=== PATIENT | female | born 1985 | race Caucasian/White ===

== ENCOUNTER 2019-01-25 12:42 | Emergency (ER) | payer MEDICAID ==
[~2019-01-25] VITALS: Ht 179.1 cm; Wt 94.8 kg
[~2019-01-25 12:42] MED LIST: IBUP-1985 PO; PALI117D IM
[2019-01-25 15:19] LABS: BASOPHILS # (AUTO) 0.1 X10'3 (0-0.2); BASOPHILS % (AUTO) 0.9 % (0-1); EOSINOPHILS # (AUTO) 0.2 X10'3 (0-0.9); EOSINOPHILS % (AUTO) 2.1 % (0-6); HEMATOCRIT 38.2 % (35.0-45.0); HEMOGLOBIN 12.5 g/dl (12.0-16.0); LYMPHOCYTES % (AUTO) 25.4 % (21-51); MEAN CORPUSCULAR HGB CONC 32.7 g/dL (33.0-36.5); MEAN CORPUSCULAR VOLUME 91.9 FL (78-98); MEAN PLATELET VOLUME 8.4 FL (7.4-10.4); MONOCYTES # (AUTO) 0.6 X10'3 (0-0.9); MONOCYTES % (AUTO) 7.1 % (2-12); NEUTROPHILS # (AUTO) 5.1 X10'3 (1.8-7.7); NEUTROPHILS % (AUTO) 64.5 % (42-75); PLATELET COUNT 268 X10'3 (140-440); RED BLOOD COUNT 4.16 X10'6 (4.20-5.60); RED CELL DISTRIBUTION WIDTH 16.2 % (11.5-14.5); WHITE BLOOD COUNT 7.8 X10'3 (4.5-11.0)
[2019-01-25 15:29] LABS: ALANINE AMINOTRANSFERASE 19 U/L (12-78); ALBUMIN 3.4 G/DL (3.4-5.0); ALBUMIN/GLOBULIN RATIO 0.9 (1.1-1.5); ALKALINE PHOSPHATASE 92 IU/L (46-116); ANION GAP 5 (8-16); ASPARTATE AMINO TRANSFERASE 16 U/L (10-37); BILIRUBIN,TOTAL 0.4 MG/DL (0.1-1.0); BLOOD UREA NITROGEN 12 MG/DL (7-18); CALCIUM 8.9 MG/DL (8.5-10.1); CHLORIDE 105 MMOL/L (99-107); CREATININE 0.92 MG/DL (0.40-0.90); GLUCOSE 79 MG/DL (70-104); POTASSIUM 3.8 MMOL/L (3.5-5.1); SODIUM 139 MMOL/L (135-145); TOTAL CARBON DIOXIDE 28.9 MMOL/L (24-32); eGFR 71 ML/MIN
--- NOTE | 2019-01-25 15:30 | NUR ---
DR COOLEY AT BEDSIDE EVALUATING PT
[2019-01-25 15:33] LABS: URINE HCG NEGATIVE (NEG)
[2019-01-25 15:35] LABS: CLARITY,URINE SLIGHTLY CLOUDY (Clear); COLOR,URINE YELLOW (Yellow); GLUCOSE, URINE NEGATIVE (Neg); KETONES,URINE NEGATIVE (Neg); LEUKOCYTE ESTERASE ,URINE NEGATIVE (Neg); NITRITES, URINE NEGATIVE (Neg); OCCULT BLOOD,URINE LARGE (Neg); PROTEIN,URINE TRACE mg/dl (Neg); UROBILINOGEN,URINE 0.2 E.U/dL (0.2-1.0)
[2019-01-25 15:38] LABS: ETHANOL < 0.010 GM/DL (0.0-0.010)
[2019-01-25 15:40] LABS: UA COLLECTION TYPE CLN CATCH MIDSTREAM
[2019-01-25 15:43] LABS: BACTERIA,URINE 2+ /HPF (Neg); CAL OXALATE CRYSTALS 1+ /HPF (NEGATIVE); MUCUS STRANDS MODERATE /LPF (Neg); SQUAMOUS EPITHELIAL CELL,UR MODERATE /LPF (FEW); WBC,URINE 0-4 /HPF (0-4)
[2019-01-25 15:44] LABS: URINE AMPHETAMINE SCREEN POSITIVE (Neg); URINE BARBITUATE SCREEN NEGATIVE (Neg); URINE BENZODIAZEPINES SCREEN NEGATIVE (Neg); URINE CANNABINOID SCREEN NEGATIVE (Neg); URINE COCAINE SCREEN NEGATIVE (Neg); URINE METHADONE SCREEN NEGATIVE (Neg); URINE OPIATE SCREEN NEGATIVE (Neg); URINE PHENCYCLIDINE SCREEN NEGATIVE (Neg)
--- NOTE | 2019-01-25 17:30 | NUR ---
PT SLEEPING IN NO NOTED DISTRESS
--- NOTE | 2019-01-25 17:56 | NUR ---
SAFETY DINNER TRAY DELIVERED TO BEDSIDE.
--- NOTE | 2019-01-25 19:00 | NUR ---
Patient resting comfortably in bed.
--- NOTE | 2019-01-25 19:12 | NUR ---
Patient chart faxed to [facility] at 19:11
--- NOTE | 2019-01-25 20:00 | NUR ---
Patient went to bathroom and received warm blanket.
--- NOTE | 2019-01-25 21:30 | NUR ---
Agree with covering nurses assessment that was completed while this nurse was on break.
--- NOTE | 2019-01-25 21:51 | NUR ---
Vikas from [facility] assessed Pt and wrote [id number] order. County to assess tomorrow for possible placement.
--- NOTE | 2019-01-25 22:00 | NUR ---
Patient sleeping on her right side . Bed low.
--- NOTE | 2019-01-25 23:47 | NUR ---
Patient on her back sleeping with eyes closed and respirations steady.
--- NOTE | 2019-01-26 01:30 | NUR ---
Patient resting comfortably on her left side. Respiration even, eyes closed.
--- NOTE | 2019-01-26 03:30 | NUR ---
Continues sleeping on her left side.
--- NOTE | 2019-01-26 03:30 | NUR ---
Adriel escoto in [facility] - 01/26/19 at 0355 by NAVNEET Patient sleeping now on her left side.
--- NOTE | 2019-01-26 05:08 | NUR ---
Note tigist in EDM - 01/26/19 at 0618 by NAVNEET Patient just awoke and patient agreed for temperature to be taken = 98.4 oral. Patient then covered up the top part of his head and closed his eyes. Currently on his left side.
--- NOTE | 2019-01-26 05:30 | NUR ---
Patient has slept soundly all night long.
[2019-01-26] MEDS ORDERED: hydrOXYzine 25 MG tablet PO PRN (14:45)
--- NOTE | 2019-01-26 16:43 | NUR ---
pt is awake and asking when she can leave
--- NOTE | 2019-01-26 17:00 | NUR ---
pt is resting in bed
--- NOTE | 2019-01-26 18:09 | NUR ---
pt is pacing along side of bed. pt denies anxiety but states she just wants to move around
--- NOTE | 2019-01-26 18:40 | NUR ---
This patient is awake and well oriented. Patient complains of mild depression. Her affect is flat, thought process is linear. Patient denies S/I or H/I. Patient presents as friendly. She ate her dinner. She is reported to be medication compliant. The patient is advised by this information writer that she is in a safe place. Patients bed is in view from the nursing station. Q15 minute rounding is being done for patient safety.
--- NOTE | 2019-01-26 20:50 | NUR ---
The plan is to transfer patient to [facility]. We are still awaiting [facility] transport. Patient is sleeping quietly at this time. In view from the nursing station. Q15 minute rounding being done for patient safety.
--- NOTE | 2019-01-26 21:02 | NUR ---
[facility] Transport is here. Patient is being escorted out, transport to [facility].
[2019-01-26 21:03] VITALS: BP 120/72
== END 2019-01-26 21:07 ==
LOC: ER 12:42
DX: F31.60 Bipolar disorder, current episode mixed, unspecified (principal); F41.9 Anxiety disorder, unspecified; F20.9 Schizophrenia, unspecified; F12.90 Cannabis use, unspecified, uncomplicated; F15.90 Other stimulant use, unspecified, uncomplicated; F11.90 Opioid use, unspecified, uncomplicated; Z79.899 Other long term (current) drug therapy; Z98.890 Other specified postprocedural states; Z59.0 Homelessness; Z56.0 Unemployment, unspecified; Z60.2 Problems related to living alone
CPT/HCPCS: 36415; 80053; 80305; 80320; 81001; 81025; 84443; 85025; 99285; Q0177

== ENCOUNTER 2019-12-15 14:32 | Inpatient (IN) | payer MEDICAID ==
[~2019-12-15] VITALS: Ht 177.8 cm; Wt 116.3 kg
[2019-12-16] MEDS ORDERED: loperamide 2mg capsule PO PRN (15:00)
[2019-12-16] MEDS ORDERED: mag hydrox/Alum hydrox/simeth 30ml oral suspension PO PRN (15:00)
[2019-12-16] MEDS ORDERED: LORazepam 1 MG tablet PO PRN (15:00)
[2019-12-16] MEDS ORDERED: NICOTINE POLACRILEX 2 MG LOZENGE BC PRN (15:00)
[2019-12-16] MEDS ORDERED: traZODone 50mg tablet PO PRN (15:00)
[2019-12-16] MEDS ORDERED: haloperidol 5mg tablet PO PRN (15:00)
[2019-12-16] MEDS ORDERED: acetaminophen 325mg tablet PO PRN ×2 (15:00)
[2019-12-16] MEDS ORDERED: diphenhydrAMINE 25mg capsule PO PRN (15:00)
[2019-12-16] MEDS ORDERED: magnesium hydroxide 30ml (MOM) UD suspension PO PRN (15:00)
[2019-12-16] MEDS ORDERED: quetiapine 100mg tablet PO PRN (15:00)
[2019-12-16] MEDS: LORazepam 1 MG tablet PO PRN ×2 (15:25→22:34)
[2019-12-16 15:31] VITALS: BP 127/83
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
[2019-12-16] MEDS ORDERED: LEVO25TA2 PO (19:21)
[2019-12-16] MEDS ORDERED: DOCU-148 PO (19:24)
[2019-12-16] MEDS ORDERED: LIT300C PO (19:26)
[2019-12-16] MEDS ORDERED: GLYC1TAB23 PO (19:27)
[2019-12-16] MEDS ORDERED: CHLO100T24 PO (19:29)
[2019-12-16] MEDS ORDERED: CHLO50TA24 PO (19:37)
[2019-12-16] MEDS ORDERED: HYDR50CA PO (19:40)
[2019-12-16] MEDS ORDERED: LORA-269 PO (19:42)
[2019-12-16 20:00] VITALS: BP 124/72
--- NOTE | 2019-12-16 22:40 | NUR ---
Patient came to the nurses station window, she exhibits paranoia about the sitter outside her door that is in that location to observe her roommate. This business writer explained to this patient that the sitter is not there because of her. The patient looks to be responding to external stimuli, she states she can't sleep and exhibits anxiety. PO Ativan 2mg given along with Benadryl 50 mg. Patient also requested a nicotine lozenge. Patient complied with medications. She was also given a glass of water which she consumed. String cheese was consumed as a snack. Patient returned to bed.
--- NOTE | 2019-12-16 23:06 | NUR ---
MOM given prn for patient complaint of indigestion.
[2019-12-17] MEDS ORDERED: quetiapine 100mg tablet PO PRN ×2 (00:15→00:40)
[2019-12-17] MEDS ORDERED: acetaminophen 325mg tablet PO PRN (00:40)
[2019-12-17] MEDS ORDERED: loperamide 2mg capsule PO PRN (00:40)
[2019-12-17] MEDS ORDERED: LORazepam 1 MG tablet PO PRN (00:40)
[2019-12-17] MEDS ORDERED: traZODone 50mg tablet PO PRN (00:40)
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
[2019-12-17 08:00] VITALS: BP 107/83
[2019-12-17] MEDS ORDERED: nicotine 21mg patch - 24 hr TD SCH (08:00)
[2019-12-17] MEDS: nicotine 7mg patch - 24hr TD SCH (08:06)
[2019-12-17] MEDS: LORazepam 1 MG tablet PO PRN ×2 (08:06→17:12)
[2019-12-17] MEDS: glycopyrrolate 1mg tablet PO SCH ×2 (08:06→22:02)
[2019-12-17] MEDS: perphenazine 8mg tablets PO SCH ×3 (08:06→22:01)
[2019-12-17] MEDS: docusate sod 100mg capsule PO SCH ×2 (08:07→22:02)
[2019-12-17] MEDS: levoTHYROXINE 25mcg tablet PO SCH (08:07)
[2019-12-17] MEDS: lithium carbonate 300mg SR tablet (LithoBID) PO SCH ×2 (08:11→22:03)
[2019-12-17] MEDS ORDERED: OLANZapine 5mg rapidly disint. tablet PO ONE (10:05)
[2019-12-17] MEDS: magnesium hydroxide 30ml (MOM) UD suspension PO PRN (14:28)
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
[2019-12-17 15:22] LABS: BASOPHILS # (AUTO) 0.1 X10'3 (0-0.2); BASOPHILS % (AUTO) 1.2 % (0-1); EOSINOPHILS # (AUTO) 0.1 X10'3 (0-0.9); EOSINOPHILS % (AUTO) 2.3 % (0-6); HEMATOCRIT 29.6 % (35.0-45.0); HEMOGLOBIN 9.9 g/dl (12.0-16.0); LYMPHOCYTES # (AUTO) 2.4 X10'3 (1.1-4.8); LYMPHOCYTES % (AUTO) 40.3 % (21-51); MEAN CORPUSCULAR HEMOGLOBIN 29.5 PG (27.0-31.0); MEAN CORPUSCULAR HGB CONC 33.4 g/dL (33.0-36.5); MEAN CORPUSCULAR VOLUME 88.3 FL (78-98); MEAN PLATELET VOLUME 8.4 FL (7.4-10.4); MONOCYTES # (AUTO) 0.6 X10'3 (0-0.9); MONOCYTES % (AUTO) 9.1 % (2-12); NEUTROPHILS # (AUTO) 2.8 X10'3 (1.8-7.7); NEUTROPHILS % (AUTO) 47.1 % (42-75); PLATELET COUNT 281 X10'3 (140-440); RED BLOOD COUNT 3.35 X10'6 (4.20-5.60); RED CELL DISTRIBUTION WIDTH 16.3 % (11.5-14.5)
[2019-12-17 15:38] LABS: ALANINE AMINOTRANSFERASE 16 U/L (12-78); ALBUMIN 3.1 G/DL (3.4-5.0); ALBUMIN/GLOBULIN RATIO 0.9 (1.1-1.5); ALKALINE PHOSPHATASE 58 IU/L (46-116); ANION GAP 5 (8-16); ASPARTATE AMINO TRANSFERASE 12 U/L (10-37); BILIRUBIN,TOTAL 0.1 MG/DL (0.1-1.0); BLOOD UREA NITROGEN 11 MG/DL (7-18); BUN/CREATININE RATIO 9.3 (6.6-38.0); CALCIUM 8.7 MG/DL (8.5-10.1); CHLORIDE 107 MMOL/L (99-107); CREATININE 1.18 MG/DL (0.40-0.90); GLUCOSE 116 MG/DL (70-104); POTASSIUM 3.7 MMOL/L (3.5-5.1); SODIUM 140 MMOL/L (135-145); TOTAL CARBON DIOXIDE 28.2 MMOL/L (24-32); TOTAL PROTEIN 6.7 G/DL (6.4-8.2); eGFR 53 ML/MIN
[2019-12-17 17:12] LABS: CLARITY,URINE SLIGHTLY CLOUDY (Clear); COLOR,URINE YELLOW (Yellow); GLUCOSE, URINE NEGATIVE (Neg); KETONES,URINE NEGATIVE (Neg); LEUKOCYTE ESTERASE ,URINE NEGATIVE (Neg); NITRITES, URINE NEGATIVE (Neg); OCCULT BLOOD,URINE LARGE (Neg); PH,URINE 7.5 (4.8-8.0); PROTEIN,URINE TRACE mg/dl (Neg); UA COLLECTION TYPE CLN CATCH MIDSTREAM; UROBILINOGEN,URINE 0.2 E.U/dL (0.2-1.0)
[2019-12-17 17:17] LABS: BACTERIA,URINE FEW /HPF (Neg); MUCUS STRANDS NONE SEEN /LPF (Neg); RBC,URINE TNTC /HPF (0-2); SQUAMOUS EPITHELIAL CELL,UR FEW /LPF (FEW); WBC,URINE 0-4 /HPF (0-4)
[2019-12-17 17:26] LABS: URINE AMPHETAMINE SCREEN NEGATIVE (Neg); URINE BARBITUATE SCREEN NEGATIVE (Neg); URINE BENZODIAZEPINES SCREEN NEGATIVE (Neg); URINE CANNABINOID SCREEN NEGATIVE (Neg); URINE COCAINE SCREEN NEGATIVE (Neg); URINE METHADONE SCREEN NEGATIVE (Neg); URINE OPIATE SCREEN NEGATIVE (Neg); URINE PHENCYCLIDINE SCREEN NEGATIVE (Neg)
[2019-12-17 19:00] VITALS: BP 116/82
[2019-12-17] MEDS ORDERED: CLOMIPRAMINE PO SCH (21:00)
[2019-12-17] MEDS: NICOTINE POLACRILEX 2 MG LOZENGE BC PRN (22:01)
[2019-12-17] MEDS: traZODone 50mg tablet PO PRN (22:03)
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
[2019-12-18] MEDS: levoTHYROXINE 25mcg tablet PO SCH (07:40)
[2019-12-18] MEDS: docusate sod 100mg capsule PO SCH ×2 (07:40→20:45)
[2019-12-18] MEDS: nicotine 7mg patch - 24hr TD SCH (07:40)
[2019-12-18] MEDS: lithium carbonate 300mg SR tablet (LithoBID) PO SCH ×2 (07:40→20:46)
[2019-12-18] MEDS: perphenazine 8mg tablets PO SCH ×3 (07:41→20:45)
[2019-12-18 08:00] VITALS: BP 119/83
[2019-12-18 08:15] LABS: ETHANOL < 0.010 GM/DL (0.0-0.010); LDL CHOLESTEROL 106 MG/DL (50-100)
[2019-12-18 08:34] LABS: CREATININE 1.08 MG/DL (0.40-0.90); HDL CHOLESTEROL 37 MG/DL (35-60); PHENYTOIN (DILANTIN) 0.7 UG/ML (10.0-20.0); TRIGLYCERIDES 194 MG/DL (20-135); eGFR 59 ML/MIN
[2019-12-18 08:37] LABS: CHOL/HDL RATIO 4.8 (0.00-4.99); CHOLESTEROL 177 MG/DL (0-200)
[2019-12-18] MEDS: glycopyrrolate 1mg tablet PO SCH ×2 (08:37→20:45)
[2019-12-18 09:15] LABS: HEMOGLOBIN A1C 5.7 % (4.5-6.2)
[2019-12-18] MEDS: acetaminophen 325mg tablet PO PRN ×3 (10:40→15:44)
[2019-12-18 15:32] LABS: URINE HCG NEGATIVE (NEG)
[2019-12-18 16:08] LABS: CLARITY,URINE SLIGHTLY CLOUDY (Clear); GLUCOSE, URINE NEGATIVE (Neg); KETONES,URINE NEGATIVE (Neg); LEUKOCYTE ESTERASE ,URINE SMALL (Neg); NITRITES, URINE NEGATIVE (Neg); OCCULT BLOOD,URINE LARGE (Neg); PROTEIN,URINE TRACE mg/dl (Neg); UROBILINOGEN,URINE 0.2 E.U/dL (0.2-1.0)
[2019-12-18 16:10] LABS: COLOR,URINE PINK (Yellow); UA COLLECTION TYPE NON-SPECIFIED
[2019-12-18 16:16] LABS: BACTERIA,URINE NONE SEEN /HPF (Neg); MUCUS STRANDS NONE SEEN /LPF (Neg); RBC,URINE 50-100 /HPF (0-2); SQUAMOUS EPITHELIAL CELL,UR MODERATE /LPF (FEW); WBC,URINE 0-4 /HPF (0-4)
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
[2019-12-18 20:00] VITALS: BP 123/81
[2019-12-18] MEDS: traZODone 50mg tablet PO PRN ×2 (20:46→22:05)
[2019-12-18] MEDS: CLOMIPRAMINE 50 MG PO SCH (20:46)
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
[2019-12-19 07:46] VITALS: BP 96/76
[2019-12-19] MEDS: nicotine 7mg patch - 24hr TD SCH (07:57)
[2019-12-19] MEDS: lithium carbonate 300mg SR tablet (LithoBID) PO SCH ×2 (07:58→21:34)
[2019-12-19] MEDS: glycopyrrolate 1mg tablet PO SCH ×2 (07:58→21:34)
[2019-12-19] MEDS: perphenazine 8mg tablets PO SCH ×3 (07:58→21:34)
[2019-12-19] MEDS: levoTHYROXINE 25mcg tablet PO SCH (07:58)
[2019-12-19] MEDS: docusate sod 100mg capsule PO SCH ×2 (07:58→21:34)
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
[2019-12-19 19:00] VITALS: BP 133/80
[2019-12-19] MEDS: CLOMIPRAMINE 50 MG PO SCH (21:33)
[2019-12-19] MEDS: traZODone 50mg tablet PO PRN (21:34)
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
[2019-12-20] MEDS: nicotine 7mg patch - 24hr TD SCH (08:00)
[2019-12-20] MEDS: docusate sod 100mg capsule PO SCH ×2 (08:08→20:15)
[2019-12-20] MEDS: levoTHYROXINE 25mcg tablet PO SCH (08:09)
[2019-12-20] MEDS: perphenazine 8mg tablets PO SCH ×3 (08:09→20:15)
[2019-12-20] MEDS: lithium carbonate 300mg SR tablet (LithoBID) PO SCH ×2 (08:09→20:15)
[2019-12-20] MEDS: glycopyrrolate 1mg tablet PO SCH ×2 (08:12→20:15)
[2019-12-20 08:42] VITALS: BP 119/92
[2019-12-20 20:00] VITALS: BP 119/84
[2019-12-20] MEDS: CLOMIPRAMINE 50 MG PO SCH (20:15)
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
[2019-12-21] MEDS: lithium carbonate 300mg SR tablet (LithoBID) PO SCH ×2 (08:03→20:15)
[2019-12-21] MEDS: levoTHYROXINE 25mcg tablet PO SCH (08:03)
[2019-12-21] MEDS: glycopyrrolate 1mg tablet PO SCH ×2 (08:03→20:15)
[2019-12-21] MEDS: perphenazine 8mg tablets PO SCH ×3 (08:03→20:16)
[2019-12-21] MEDS: nicotine 7mg patch - 24hr TD SCH (08:03)
[2019-12-21] MEDS: docusate sod 100mg capsule PO SCH ×2 (08:03→20:15)
[2019-12-21 08:28] VITALS: BP 124/78
[2019-12-21] MEDS ORDERED: medroxyPROGESTERone acetate 150mg/ml inj IM ONE (10:00)
--- NOTE | 2019-12-21 10:00 | NUR ---
Group Therapy: Process Group This Clinicians goals for this process group were as follows: (1) Ask scaling questions about patients current anxiety, depression, and irritability symptoms as a check-in. (2) Share psychoeducation about emotional/situational triggers as they relate to the onset of unwanted mental health symptoms. (3) Identify examples of emotional/situational triggers within the group milieu. (4) Share psychoeducation on interventions as tools to reduce emotional escalation. (5) Identify several interventions within the group milieu that patients may utilizing in reducing emotional escalation caused by emotional/situational triggers. (6) Engage patients in discussion of the topics shared within the group milieu. Patient identified experiencing the following levels of anxiety, depression, and anger/irritability while present in the group milieu. Anxiety: 08/23 Depression: 07/23 Anger/irritability: 02/20 Patient presented as cooperative within the group milieu. Patient wore a white non-descript t-shirt, with blue shorts within the group milieu. Patient presented as unobtrusive during session; however, she only stayed long enough to provide answers to the scaling questions on her subjective levels of anxiety, depression and anger/irritability before leaving the group milieu approximately 5 minutes after the start-time of group. She did not return, nor did she participate in the discussion of emotional/situational triggers and interventions that one could employ to reduce unwanted emotional escalation and dysregulation. Luis Antonio MA, MITUL Addendum: 12/21/19 at 1154 by Luis Antonio SS Amended: Links added.
--- NOTE | 2019-12-21 10:30 | NUR ---
Pt placed on unlisted/regular/carb controlled diets; unlisted diet has no comments and pt no hx DM. Previously constipated w/ 100% PO and LBM 6/8 per RN today. MARIAN d/w RN regarding change to heart healthy diet if MD agreeable given latest TG 194. Addendum: 12/21/19 at [address] Amended: Links added.
--- NOTE | 2019-12-21 15:52 | NUR ---
NURSING PROGRESS NOTE: Legal hold: LPS Conserved Client on involuntary status for GD Report received from BENI Hernandez with use of SBAR Why are they here: The patient was AWOL at previous facility and began to decompensate. She is LPS conserved. She was cooperative with admission however quite paranoid. Stated on her trip up to [place] someone at a rest stop told her she was going to stay at this facility for 17 years, and kept asking staff if that was true? Responded well to redirection and reassurance. Assessment What has happened this shift: Patient had a pelvic ultrasound and transvaginal ultrasound. Pt. tolerated procedure well. Patient eats meals and takes medications without incident. Pt. is disorganized in conversation. Patient states that this unit is in her eye. Patient each day reports that she is discharging and that she has been told this by staff. Educated patient that her conservator is the one who will find placement. She states that she talked to Alejandra and was not given any hope for placement. Pt. states I want Alejandra , I dont want to do any violence, but I want her . Depoprovera [address] Sanz here to see patient. After Dr. Sanz left, patient stated that the doctor said that she is going to kill me, and keep me here for life. Nurses that were present informed her that this is not something that Dr. Sanz would say to her. Patient denies A/H. SI/HI: Denies. A/VH: Denies. Sleep: 5.25 hrs NOC, no naps. ADL's: Independent. Group attendance: Attempted to join group but could not sit still. Were meds taken: Yes Any med S/E: None. Mental Status Exam Appearance: Freshly showered in personal attire. Eye contact: Good Behavior: Cooperative, confused. Speech: Soft, normal rate, rhythm, and tone Mood: Dysphoria Affect: Restricted Thought process: Delusional, thought blocking, disorganized. Thought Content: Discharging. Cognition: Alert Insight: Impaired. Judgment: Poor Interventions PRN's used: Therapeutic interventions: 1;1 assessment, active listening, ensured contract for safety, encouraged pt to interact appropriately with others, maintained a safe and supportive environment, medication administration/education/monitoring, Q 15 minute safety checks. Restraints/seclusion/emergency medication: N/A Justification of Continued Inpatient Treatment: Provide care for paranoid and delusional state and provide a safe and supportive environment while awaiting placement.
[2019-12-21] MEDS: diphenhydrAMINE 25mg capsule PO PRN (16:08)
[2019-12-21] MEDS ORDERED: perphenazine 8mg tablets PO PRN (16:20)
[2019-12-21] MEDS ORDERED: LORazepam 1 MG tablet PO PRN (16:20)
[2019-12-21] MEDS: NICOTINE POLACRILEX 2 MG LOZENGE BC PRN (19:35)
[2019-12-21] MEDS ORDERED: LORazepam 0.5 MG tablet PO PRN (19:45)
[2019-12-21] MEDS: LORazepam 0.5 MG tablet PO PRN (19:51)
[2019-12-21 20:00] VITALS: BP 124/88
[2019-12-21] MEDS: CLOMIPRAMINE 50 MG PO SCH (20:17)
[2019-12-21] MEDS: traZODone 50mg tablet PO PRN (20:24)
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
[2019-12-22] MEDS: acetaminophen 325mg tablet PO PRN ×2 (04:38→15:52)
[2019-12-22] MEDS: docusate sod 100mg capsule PO SCH ×2 (08:19→19:39)
[2019-12-22] MEDS: lithium carbonate 300mg SR tablet (LithoBID) PO SCH ×3 (08:19→19:39)
[2019-12-22] MEDS: levoTHYROXINE 25mcg tablet PO SCH (08:19)
[2019-12-22] MEDS: glycopyrrolate 1mg tablet PO SCH ×2 (08:19→19:40)
[2019-12-22] MEDS: perphenazine 8mg tablets PO SCH ×3 (08:20→19:40)
[2019-12-22] MEDS: nicotine 7mg patch - 24hr TD SCH (08:23)
[2019-12-22 08:25] VITALS: BP 113/63
[2019-12-22 09:12] LABS: ESTRADIOL 17.7 pg/mL (.); FSH, SERUM 0.3 mIU/mL (.); LUTEINIZING HORMONE <0.3 mIU/mL (.); PROGESTERONE <0.1 ng/mL (.)
--- NOTE | 2019-12-22 13:02 | NUR ---
Initial: Pt admit for gravely disabled. Pt remains on a regular, CHO controlled, unlisted diet documented with 75-100% PO intake. D/w RN recommendation for diet change to heart healthy given elevated TG and LDL with no documented PMH of diabetes. LBM 6 documented as moderate. Pt receiving routine and PRN bowel care. No edema or wounds. No nutrition diagnosis at this time. Will continue to follow. Recommendations: 1) Diet change to heart healthy given elevated TG and LDL with no hx DM 2) Routine bowel care 3) Scaled wts per rx Addendum: 12/22/19 at [address] Amended: Links added.
[2019-12-22] MEDS: LORazepam 0.5 MG tablet PO PRN (14:06)
[2019-12-22] MEDS: diphenhydrAMINE 25mg capsule PO PRN (14:06)
--- NOTE | 2019-12-22 14:20 | NUR ---
Nursing Progress Note: Legal hold: LPS Conserved Client on involuntary status for GD Report received from Mary BAZAN with use of SBAR Why are they here: The patient was AWOL at previous facility and began to decompensate. She is LPS conserved. She was cooperative with admission however quite paranoid. Stated on her trip up to [place] someone at a rest stop told her she was going to stay at this facility for 17 years, and kept asking staff if that was true? Responded well to redirection and reassurance. Assessment What has happened this shift: Pt denied depression, SI/HI/AH/VH. She was up for breakfast but returned to bed to nap afterwards. Dr Sanz came by around 1215 to assess pt's bleeding. 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 Dr Sanz stated that the bleeding should completely stop by Friday. At 1406 pt requested prn Ativan and Benadryl and was given Ativan 1 mg and Benadryl 50 mg. Pt stated that she had increased anxiety. Asked pt what was causing her increased anxiety. Pt stated that her conservator lied to her and told her that she was only coming here for her thyroid but that now she has been told that she will be staying here and need a higher level of care. Pt stated that she already had a higher level of care so doesn't understand where they can send her from here. Pt expressed frustration but stated she asked for the prns because, "I don't want to take it out on you guys." Pt stated that she was going to call her conservator right now and tell her that she needs housing. Pt's diet was changed today from carb controlled to heart healthy per field identification specialist recommendations. SI/HI: Pt denies. A/VH: Pt denies. Sleep: Pt slept 8.75 hours last night per noc shift report, napped after breakfast. ADL's: Independent, showered today. Group attendance: No Were meds taken: Yes Any med S/E: None noted or reported. Mental Status Exam Appearance: Tall, overweight woman dressed in street clothes with hair pulled back in a side ponytail. Eye contact: Good Behavior: Cooperative, mostly isolative to self. Speech: Clear, audible, normal rate & rhythm. Mood: Anxious Affect: Blunted Thought process: Perseverative. Thought Content: Perseverates on anger towards conservator for lying to her to get her to come here, fixates on where she will be placed. Cognition: A/O X 4 Insight: Poor Judgment: Fair Interventions PRN's used: Ativan 1 mg, Benadryl 50 mg Therapeutic interventions: 1:1 assessment, active listening, therapeutic conversation, medication administration/education/monitoring, encouragement to attend groups, behavior monitoring and intervention as needed, encouragement and positive reinforcement, Q 15 minute safety checks. Restraints/seclusion/emergency medication: N/A Justification of Continued Inpatient Treatment: Pt decompensated at [facility] and so was sent here by conservator for stabilization, pt is unable to return to previous facility, pt needs medication management and monitoring in a safe and therapeutic environment until reaches her baseline. Pt is LPS conserved and will need placement.
[2019-12-22 19:00] VITALS: BP 140/85
[2019-12-22] MEDS: NICOTINE POLACRILEX 2 MG LOZENGE BC PRN (19:32)
[2019-12-22] MEDS: traZODone 50mg tablet PO PRN (19:39)
[2019-12-22] MEDS: CLOMIPRAMINE 50 MG PO SCH (19:41)
[2019-12-22 20:48] VITALS: BP 140/85
--- NOTE | 2019-12-23 03:57 | NUR ---
RN PROGRESS NOTE: LEGAL HOLD: LPS conserved. ADMISSION: Client began to decompensate and required medication adjustment. THIS SHIFT: Client has a depressed mood and flat affect. She was out on the unit and requested her meds a little early. Client requested PRN nicotine [place] and stated, "I'd like to go outside and smoke." Client took a shower and needed encouragement to use soap and shampoo. Client is cooperative. She reports mild pelvic pain, which has been treated effectively with Tylenol. Awake several times during the night. Denies medication side effects. Thoughts are linear. DISCHARGE: Client is unable to formulate a plan for penitentiary and food. Waiting for placement.
[2019-12-23] MEDS: perphenazine 8mg tablets PO SCH ×3 (07:53→20:54)
[2019-12-23] MEDS: lithium carbonate 300mg SR tablet (LithoBID) PO SCH ×3 (07:53→20:53)
[2019-12-23] MEDS: levoTHYROXINE 25mcg tablet PO SCH (07:53)
[2019-12-23] MEDS: docusate sod 100mg capsule PO SCH ×2 (07:53→20:54)
[2019-12-23] MEDS: glycopyrrolate 1mg tablet PO SCH ×2 (07:53→20:53)
[2019-12-23] MEDS: nicotine 7mg patch - 24hr TD SCH (07:58)
[2019-12-23 08:00] VITALS: BP 134/76
[2019-12-23] MEDS: diphenhydrAMINE 25mg capsule PO PRN ×2 (08:33→14:41)
--- NOTE | 2019-12-23 11:01 | NUR ---
PLACEMENT Packet is currently at [place] and she is #13 on wait-list at [facility]. MITUL Martin
[2019-12-23] MEDS: LORazepam 1 MG tablet PO PRN (14:41)
--- NOTE | 2019-12-23 14:50 | NUR ---
Nursing Progress Note: Legal hold: LPS Conserved Client on involuntary status for GD Report received from Mary RN with use of SBAR Why are they here: The patient was AWOL at previous facility and began to decompensate. She is LPS conserved. She was cooperative with admission however quite paranoid. Stated on her trip up to [place] someone at a rest stop told her she was going to stay at this facility for 17 years, and kept asking staff if that was true? Responded well to redirection and reassurance. Assessment What has happened this shift: Pt denied depression, SI/HI/AH/VH. Pt stated, "I'm a little worried, my conservator has dementia, she forgets what she says to me...she argues with me. My conservator is supposed to be Renato Pruett but he's been gone for 6 months. I'm going to call her right now and see if she's sent out any packets, if she hasn't, I'm going to be mad...I've been here a week." Pt was given prn Ativan 2 mg and Benadryl 50 mg at 0833 per her request with good effect. Pt reported that her vaginal bleeding had stopped. Later in the shift, pt changed into some larger scrubs that fit her better and applied make-up. Pt peeled off a small piece from the zig-zagged section of her patient identification wristband and applied it to her right cheek as an accessory, it had the appearance of a small lightening bolt. Pt began asking nurses for a squirt of hand environmental health nurse excessively. At one point while this RN was at lunch she entered the charting room without asking and grabbed a bottle of hand environmental health nurse off a ELIZABETH and made as though to walk off with it. One RN suspected that she intended to drink it. Spoke with patient after returning from lunch. Pt denied any intent to drink the hand environmental health nurse. She stated that she had been blowing her nose (pt MRSA + nares) and changing her pad so just thought that the hand environmental health nurse would be a good idea. Pt educated that hand washing is actually a more effective method for prevention of infection, ensured that patient had soap in the dispenser in her room (she did.) Asked pt if she had started bleeding again, she reported, "a little bit." Pt continued to pace back and forth in front of the nurses' charting room and look in the window. Pt seemed fixated on hand environmental health nurse for a good while and continued asking for some a couple more times. She was gently redirected away from the hand environmental health nurse and encouraged to wash her hands. Pt frequently requested her water pitcher to be refilled. Pt requested Ativan and Benadryl again after lunch and was administered Ativan 2 mg and Benadryl 50 mg at 1441. SI/HI: Pt denies. A/VH: Pt denies. Sleep: Pt slept 7.75 hours last night per noc shift report, napped for short intervals throughout the day. ADL's: Independent Group attendance: No Were meds taken: Yes Any med S/E: None noted or reported. Mental Status Exam Appearance: Tall, overweight woman dressed in clean, green hospital scrubs, applied make-up today and wore her hair down for a little while. Eye contact: Good Behavior: Cooperative, restless, paces, did not wish to read, watch TV, or listen to radio headphones, makes frequent requests. Speech: Clear, audible, normal rate & rhythm. Mood: Anxious Affect: Anxious Thought process: Perseverative Thought Content: Perseverated on using hand environmental health nurse today Cognition: A/O X 4 Insight: Poor Judgment: Fair Interventions PRN's used: Ativan 1 mg, Benadryl 50 mg X 2 @ 0833 & 1441 Therapeutic interventions: 1:1 assessment, active listening, therapeutic conversation, medication administration/education/monitoring, encouragement to attend groups, behavior monitoring and intervention as needed, limit setting, redirection, positive reinforcement, Q 15 minute safety checks. Restraints/seclusion/emergency medication: N/A Justification of Continued Inpatient Treatment: Pt decompensated at [facility] and so was sent here by conservator for stabilization, pt is unable to return to previous facility, pt needs medication management and monitoring in a safe and therapeutic environment until reaches her baseline. Pt is LPS conserved and will need placement.
[2019-12-23] MEDS: NICOTINE POLACRILEX 2 MG LOZENGE BC PRN (19:32)
[2019-12-23 20:00] VITALS: BP 142/82
[2019-12-23] MEDS: CLOMIPRAMINE 50 MG PO SCH (20:51)
--- NOTE | 2019-12-24 04:18 | NUR ---
Nursing Progress Note: Legal hold: LPS Conserved Report received from BENI Tesfaye with use of SBAR Why are they here: The patient was AWOL at previous facility and began to decompensate. She is LPS conserved. She was cooperative with admission however quite paranoid. Stated on her trip up to [place] someone at a rest stop told her she was going to stay at this facility for 17 years, and kept asking staff if that was true? Responded well to redirection and reassurance. Assessment What has happened this shift: Patient is visible on unit, upon greeting patient asks if she can have some hand broadcast systems engineer. Patient is redirected back to her room with effect. Patient is later observed lying on her bed in her room. Patient isolated mostly to her room, but was up and requested to shower. Patient then went back to her room where she remained the rest of shift. Patient was cooperative with care and medication administration. Patient denies SI/HI, A/VH. Patient reports having a BM earlier in the day, with no complaints. Patient declined to remove her Nicotine patch. [place] level drawn on 12/17 was < 0.3. SI/HI: Pt denies both. A/VH: Pt denies both. Sleep: Falls asleep without issue. Up twice for a snack and water. See Sleep Assessment for total hours. ADL's: Independent. Patient showered this shift. 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 Were meds taken: Yes, without hesitation. Any med S/E: None noted or reported. Mental Status Exam Appearance: Tall, overweight woman dressed in personal clothing. Disheveled until shower. Eye contact: Good Behavior: Cooperative, sleep most of shift, isolated to her room. Speech: Clear, normal rate/rhythm Mood: Slightly anxious Affect: Flat Thought process: Circumstantial Thought Content: Sleeping. Cognition: A/O X 3 Insight: Poor Judgment: Fair Interventions PRN's used: None Therapeutic interventions: 1:1 assessment, active listening, therapeutic conversation, medication administration/education/monitoring, behavior monitoring and intervention as needed, limit setting, redirection, positive reinforcement, Q 15 minute safety checks. Restraints/seclusion/emergency medication: N/A Justification of Continued Inpatient Treatment: Pt decompensated at [facility] and so was sent here by conservator for stabilization, pt is unable to return to previous facility, pt needs medication management and monitoring in a safe and therapeutic environment until reaches her baseline. Pt is LPS conserved and will need placement.
[2019-12-24] MEDS: perphenazine 8mg tablets PO SCH ×3 (07:55→20:19)
[2019-12-24] MEDS: docusate sod 100mg capsule PO SCH ×2 (07:55→20:18)
[2019-12-24] MEDS: LORazepam 1 MG tablet PO PRN ×2 (07:56→18:53)
[2019-12-24] MEDS: lithium carbonate 300mg SR tablet (LithoBID) PO SCH ×3 (07:56→20:18)
[2019-12-24] MEDS: glycopyrrolate 1mg tablet PO SCH ×2 (07:56→20:18)
[2019-12-24] MEDS: diphenhydrAMINE 25mg capsule PO PRN ×2 (07:56→18:51)
[2019-12-24] MEDS: levoTHYROXINE 25mcg tablet PO SCH (07:56)
[2019-12-24 08:00] VITALS: BP 121/76
[2019-12-24] MEDS: nicotine 7mg patch - 24hr TD SCH (08:00)
[2019-12-24 13:11] LABS: ESTRONE, SERUM 77 pg/mL (.)
--- NOTE | 2019-12-24 14:13 | NUR ---
Nursing Progress Note: Legal hold: LPS Conserved Client on involuntary status for GD Report received from Elli Devi RN with use of SBAR Why are they here: The patient was AWOL at previous facility and began to decompensate. She is LPS conserved. She was cooperative with admission however quite paranoid. Stated on her trip up to [place] someone at a rest stop told her she was going to stay at this facility for 17 years, and kept asking staff if that was true? Responded well to redirection and reassurance. Assessment What has happened this shift: Pt's room was changed from 329 to 326A. Had a conversation with pt at the start of the shift about the excessive requests yesterday for hand crackling press operator. Asked pt to not ask to use hand crackling press operator today. Pt looked unhappy and asked why not. Explained that it seemed as though she was compulsively fixated on it yesterday. Also, reiterated that hand washing with soap and water is actually the best way to remove germs and prevent infection. Pt did not ask this nurse for hand crackling press operator the entire shift. However, 2 other RNs said that she had asked them for it. They did not give it to her and patient at one point just walked into the charting room and grabbed a bottle of it to use while an RN was firmly telling her no. Pt presented as anxious and restless at the start of the shift. She was repeatedly trying to get a hold of her conservator before breakfast. Suggested she try later, medicated with prn Ativan 2 mg and Benadryl 50 mg along with her routine Trilafon and [place] with good effect. Pt denied all symptoms but anxiety over wanting to be placed somewhere. pt requested something for sleep at 1315. Explained that it was only early afternoon. Pt replied, "I know I just wanna take a nap." Reminded pt she had just taken her routine 1300 Trilafon and [place] and they should be kicking in soon. Pt stated, "okay" and walked to her room. Pt reported that her vaginal bleeding has stopped. SI/HI: Pt denies. A/VH: Pt denies. Sleep: Pt slept 7.5 hours last night per noc shift report, napped for short intervals throughout the day. ADL's: Independent Group attendance: No Were meds taken: Yes Any med S/E: None noted or reported. Mental Status Exam Appearance: Tall, overweight woman dressed in clean, green hospital scrubs with hair pulled up. Eye contact: Good Behavior: Restless, impulsive, irritable but cooperative, [facility]. Speech: Clear, audible, normal rate & rhythm. Mood: Anxious Affect: Anxious Thought process: Perseverative Thought Content: Perseverates/fixates on unhappiness with conservator and wanting to be placed somewhere, compulsive desire to use hand crackling press operator. Cognition: A/O X 4 Insight: Poor Judgment: Poor Interventions PRN's used: Ativan 2 mg, Benadryl 50 mg Therapeutic interventions: 1:1 assessment, active listening, therapeutic conversation, medication administration/education/monitoring, encouragement to attend groups, behavior monitoring and intervention as needed, limit setting, redirection, positive reinforcement, Q 15 minute safety checks. Restraints/seclusion/emergency medication: N/A Justification of Continued Inpatient Treatment: Pt decompensated at [facility] and so was sent here by [facility] for stabilization, pt is unable to return to previous facility, pt needs medication management and monitoring in a safe and therapeutic environment until reaches her baseline. Pt is LPS conserved and will need placement.
[2019-12-24 19:44] VITALS: BP 132/88
[2019-12-24] MEDS: magnesium hydroxide 30ml (MOM) UD suspension PO PRN (20:17)
[2019-12-24] MEDS: CLOMIPRAMINE 50 MG PO SCH (20:18)
--- NOTE | 2019-12-25 00:56 | NUR ---
Nursing Progress Note: Legal hold: LPS Conserved Report received from BENI Tesfaye with use of SBAR Why are they here: The patient was AWOL at previous facility and began to decompensate. She is LPS conserved. She was cooperative with admission however quite paranoid. Stated on her trip up to [place] someone at a rest stop told her she was going to stay at this facility for 17 years, and kept asking staff if that was true? Responded well to redirection and reassurance. Assessment What has happened this shift: Patient observed in her room at shift change, reported anxiety 03/23, There are things I am addicted too and that I want, plus this place is getting to me. I just want to sleep right now. Patient requested PRN Benadryl and Ativan with effect. Patient compliant with 1:1 assessment. Patient reports last bowel movement was a couple days ago and was small and hard. Administered MOM with HS medications. Abdomen soft and non-tender upon palpation. Patient denies SI/HI, A/VH. Patient up for HS snack then returns to bed. Patient wakes up around 0045 having a coughing spell. Patient denies chest pain or SOB. Patients lungs are clear upon palpation. Patient requests snack then goes back to bed. Patient declines removal of Nicotine patch. Patient did not request any hand auto vinyl top installer from this justowriter operator. [place] level drawn on 12/17 was < 0.3. SI/HI: Pt denies both. A/VH: Pt denies both. Sleep: Falls asleep without issue. Up once for a snack. See Sleep Assessment for total hours. ADL's: Independent. Patient showered this shift. Group attendance: shift lab technician, no group. Were meds taken: Yes, without hesitation. Any med S/E: None noted or reported. Mental Status Exam Appearance: Tall, overweight woman, a little disheveled, wearing green unit scrubs. Eye contact: Good Behavior: Cooperative, slept most of shift, isolated to room. Speech: Clear, normal rate/rhythm Mood: Anxious Affect: Constricted Thought process: Circumstantial Thought Content: Feeling anxious. Cognition: A/O X 3 Insight: Poor Judgment: Fair Interventions PRN's used: None Therapeutic interventions: 1:1 assessment, active listening, therapeutic conversation, medication administration/education/monitoring, behavior monitoring and intervention as needed, limit setting, redirection, positive reinforcement, Q 15 minute safety checks. Restraints/seclusion/emergency medication: N/A Justification of Continued Inpatient Treatment: Pt decompensated at [facility] and so was sent here by conservator for stabilization, pt is unable to return to previous facility, pt needs medication management and monitoring in a safe and therapeutic environment until reaches her baseline. Pt is LPS conserved and will need placement. Addendum: 12/25/19 at 0416 by Angie Bergman RN Patient woke up requested PRN Ativan and Benadryl "I can't sleep." When this justowriter operator went to administer medication patient was sleeping. This justowriter operator called patient by name twice, but she continued to sleep.
[2019-12-25] MEDS ORDERED: diphenhydrAMINE 25mg capsule PO ONE (03:40)
[2019-12-25 07:45] VITALS: BP 120/78
[2019-12-25] MEDS: lithium carbonate 300mg SR tablet (LithoBID) PO SCH ×3 (08:15→20:47)
[2019-12-25] MEDS: levoTHYROXINE 25mcg tablet PO SCH (08:15)
[2019-12-25] MEDS: docusate sod 100mg capsule PO SCH ×2 (08:15→20:47)
[2019-12-25] MEDS: glycopyrrolate 1mg tablet PO SCH ×2 (08:17→20:47)
[2019-12-25] MEDS: perphenazine 8mg tablets PO SCH ×3 (08:17→20:50)
[2019-12-25] MEDS: nicotine 7mg patch - 24hr TD SCH (08:30)
[2019-12-25] MEDS: LORazepam 1 MG tablet PO PRN (14:18)
--- NOTE | 2019-12-25 17:38 | NUR ---
Nursing Progress Note: Legal hold: LPS Conserved for GD Report received from BENI Manzanares with use of SBAR Why they are here: The patient was AWOL at previous facility and began to decompensate. She is LPS conserved. She was cooperative with admission however quite paranoid. Stated on her trip up to [place] someone at a rest stop told her she was going to stay at this facility for 17 years, and kept asking staff if that was true? Responded well to redirection and reassurance. Assessment What has happened this shift: Pt sleeping at beginning of shift. She came to breakfast and took medications. She began asking for hand branch credit counselor right away and would frequently approach the nurses station for more. She was encouraged to wash her hands to which she states she cant because she is allergic to the soap. She states she can use the shampoo, so she was told to use shampoo to wash her hands for good hygiene. She continued to ask for hand branch credit counselor. She requested a PRN because she goes up and down. Ativan given. She attended group popcorn/movie and then napped later in the day. SI/HI: Pt denies. A/VH: Pt denies. Sleep: 8 h per sleep assessment ADL's: Independent. Group attendance: No Were meds taken: Yes Any med S/E: None noted Mental Status Exam Appearance: Changed a couple times today from her own clothes to green unit scrubs, hair back. Eye contact: Good Behavior: Socializes with other residents, obsessive about hand branch credit counselor. Speech: WNL Mood: Anxious Affect: Flat Thought process: Circumstantial Thought Content: Worried about hand branch credit counselor and medications due. Cognition: A/O X 3 Insight: Poor Judgment: Poor Interventions PRN's used: Ativan Therapeutic interventions: 1:1 assessment, active listening, therapeutic conversation, medication administration/education/monitoring, behavior monitoring and intervention as needed, limit setting, redirection, positive reinforcement, Q 15 minute safety checks. Restraints/seclusion/emergency medication: N/A Justification of Continued Inpatient Treatment: Pt decompensated at [facility] and so was sent here by conservator for stabilization, pt is unable to return to previous facility, pt needs medication management and monitoring in a safe and therapeutic environment until reaches her baseline. Pt is LPS conserved and will need placement.
[2019-12-25 20:00] VITALS: BP 109/67
[2019-12-25] MEDS: CLOMIPRAMINE 50 MG PO SCH (20:50)
--- NOTE | 2019-12-26 04:38 | NUR ---
Nursing Progress Note: Legal hold: LPS Conserved Report received from BENI Tesfaye with use of SBAR Why are they here: The patient was AWOL at previous facility and began to decompensate. She is LPS conserved. She was cooperative with admission however quite paranoid. Stated on her trip up to [place] someone at a rest stop told her she was going to stay at this facility for 17 years, and kept asking staff if that was true? Responded well to redirection and reassurance. Assessment What has happened this shift: Received patient sleeping in her room at shift change, respirations even and unlabored. Patient rouses to name for HS medication administration. Patient denies fatigue, "I am feeling depressed." Patient is cooperative with care. Patient remains in bed most of shift, is up once requesting a snack. No delusional statements made this shift. [place] level drawn on 12/17 was < 0.3. SI/HI: Pt denies both. A/VH: Pt denies both. Sleep: Falls asleep without issue. Up once for a snack. See Sleep Assessment for total hours. ADL's: Independent. Group attendance: senior living advisor, no group. Were meds taken: Yes, without hesitation. Any med S/E: None noted or reported. Mental Status Exam Appearance: Tall, overweight woman, a little disheveled, wearing green unit scrubs. Eye contact: Good Behavior: Cooperative, slept most of shift, isolated to room. Speech: Clear, normal rate/rhythm Mood: Depressed Affect: Sleepy Thought process: Circumstantial Thought Content: Sleeping Cognition: A/O X 3 Insight: Poor Judgment: Fair Interventions PRN's used: None Therapeutic interventions: 1:1 assessment, active listening, therapeutic conversation, medication administration/education/monitoring, behavior monitoring and intervention as needed, limit setting, redirection, positive reinforcement, Q 15 minute safety checks. Restraints/seclusion/emergency medication: N/A Justification of Continued Inpatient Treatment: Pt decompensated at [facility] and so was sent here by conservator for stabilization, pt is unable to return to previous facility, pt needs medication management and monitoring in a safe and therapeutic environment until reaches her baseline. Pt is LPS conserved and will need placement.
[2019-12-26] MEDS: levoTHYROXINE 25mcg tablet PO SCH (07:35)
[2019-12-26] MEDS: lithium carbonate 300mg SR tablet (LithoBID) PO SCH ×3 (07:35→19:47)
[2019-12-26] MEDS: perphenazine 8mg tablets PO SCH ×3 (07:35→19:51)
[2019-12-26] MEDS: glycopyrrolate 1mg tablet PO SCH ×2 (07:35→19:47)
[2019-12-26] MEDS: docusate sod 100mg capsule PO SCH ×2 (07:35→19:47)
[2019-12-26] MEDS: nicotine 7mg patch - 24hr TD SCH (07:39)
[2019-12-26 07:43] VITALS: BP 143/50
[2019-12-26] MEDS: diphenhydrAMINE 25mg capsule PO PRN ×2 (10:33→19:49)
--- NOTE | 2019-12-26 15:24 | NUR ---
Nursing Progress Note: Bety Legal hold: LPS Conserved Report received from Elli Perez RN with use of SBAR Why are they here: The patient was AWOL at previous facility and began to decompensate. She is LPS conserved. She was cooperative with admission however quite paranoid. Stated on her trip up to [place] someone at a rest stop told her she was going to stay at this facility for 17 years, and kept asking staff if that was true? Responded well to redirection and reassurance. Assessment What has happened this shift: Client was in bed to begin the shift and easily awoke for meds and assessment. Client stated, "I am going to stay in my room today because I was told to stay here". Client endorses hearing voices telling her to remain in her room today. Client was redirected and has been more visible on the unit. Compliant with medication as well as assessment. Client asked for medication for, "anxiety" and was given Benadryl per orders at 1035 hours. Client was observed in the hallway consuming hand boring mill set up operator vertical. She was stopped at once and confronted. She did admit to consuming the product. Staff has been made aware of this incident and precautions will be taken to ensure that this will not occur again. Client later apologized for the previously mentioned event. She has been visible on the unit since this am and no other behavioral issues noted. SI/HI: Pt denies both. A/VH: Pt denies both. Sleep: ADL's: Independent. Group attendance: no Were meds taken: Yes Any med S/E: None noted or reported. Mental Status Exam Appearance: Tall, overweight woman, a little disheveled, wearing green unit scrubs. Eye contact: Good Behavior: Withdrawn Speech: Clear, normal rate/rhythm Mood: Depressed Affect: Suspicious, guarded Thought process: Circumstantial Thought Content: Sleeping Cognition: A/O X 3 Insight: Poor Judgment: Fair Interventions PRN's used: None Therapeutic interventions: 1:1 assessment, active listening, therapeutic conversation, medication administration/education/monitoring, behavior monitoring and intervention as needed, limit setting, redirection, positive reinforcement, Q 15 minute safety checks. Restraints/seclusion/emergency medication: N/A Justification of Continued Inpatient Treatment: Pt decompensated at [facility] and so was sent here by conservator for stabilization, pt is unable to return to previous facility, pt needs medication management and monitoring in a safe and therapeutic environment until reaches her baseline. Pt is LPS conserved and will need placement. Addendum: 12/26/19 at 1554 by Carson Chua RN Please monitor H2O intake as client made an excessive amount of requests for water this shift. Client was told to limit her intake h2o and it was explained to her what excessive water intake could compromise her current health status. Client stated that she understood the information and will comply.
[2019-12-26] MEDS: LORazepam 1 MG tablet PO PRN ×2 (16:58→23:01)
[2019-12-26] MEDS: CLOMIPRAMINE 50 MG PO SCH (19:50)
[2019-12-26 20:00] VITALS: BP 148/95
[2019-12-26] MEDS ORDERED: CLOMIPRAMINE HCL 50 MG CAPSULE PO SCH (21:00)
--- NOTE | 2019-12-27 04:55 | NUR ---
darline Progress Note: Narda Legal hold: LPS Conserved Report received from Damien DAMIAN, with use of SBAR Why are they here: The patient was AWOL at previous facility and began to decompensate. She is LPS conserved. She was cooperative with admission however quite paranoid. Stated on her trip up to [place] someone at a rest stop told her she was going to stay at this facility for 17 years, and kept asking staff if that was true? Responded well to redirection and reassurance. Assessment What has happened this shift: Patient alert and oriented x3, and standing in hallway at beginning of this shift. Patient spotted the hand printing equipment mechanic on a ermelinda and grabbed it before staff could stop her. Staff followed patient into her room and instructed her to wipe the printing equipment mechanic off which she did by rubbing her hands and using a paper towel. Later pt. asked staff member if she could have another squirt! Patient compliant with her medications and then took a shower. When asked where her nicotene patch was, Patient said it had come off somewhere. Staff checked shower and then bedside table as pt. thought it was there, but staff could not find. Patient did take a burrito at snack time and ate it in her room. Gave patient ativan later on as she was feeling anxious and unable to sleep. SI/HI: Patient denies AH/VH: Pt denies both. Sleep: ADL's: Independent. Group attendance: no Were meds taken: Yes Any med S/E: None noted or reported. Mental Status Exam Appearance: Tall, a little disheveled, wearing green unit scrubs. Eye contact: Good Behavior: Withdrawn Speech: Clear, normal rate/rhythm Mood: Depressed Affect: Suspicious, guarded Thought process: Circumstantial Thought Content: Sleeping Cognition: A/O X 3 Insight: Poor Judgment: Fair Interventions PRN's used: Ativan Therapeutic interventions: 1:1 assessment, active listening, therapeutic conversation, medication administration/education/monitoring, behavior monitoring and intervention as needed, limit setting, redirection, positive reinforcement, Q 15 minute safety checks. Restraints/seclusion/emergency medication: N/A Justification of Continued Inpatient Treatment: Pt decompensated at [facility] and so was sent here by conservator for stabilization, pt is unable to return to previous facility, pt needs medication management and monitoring in a safe and therapeutic environment until reaches her baseline. Pt is LPS conserved and will need placement. Addendum: 12/26/19 at 1554 by Carson Chua RN Please monitor H2O intake as client made an excessive amount of requests for water this shift. Client was told to limit her intake h2o and it was explained to her what excessive water intake could compromise her current health status. Client stated that she understood the information and will comply.
[2019-12-27] MEDS: nicotine 7mg patch - 24hr TD SCH (08:02)
[2019-12-27] MEDS: levoTHYROXINE 25mcg tablet PO SCH (08:03)
[2019-12-27] MEDS: lithium carbonate 300mg SR tablet (LithoBID) PO SCH ×4 (08:03→21:00)
[2019-12-27] MEDS: docusate sod 100mg capsule PO SCH ×3 (08:03→20:28)
[2019-12-27] MEDS: glycopyrrolate 1mg tablet PO SCH ×3 (08:03→20:28)
[2019-12-27] MEDS: perphenazine 8mg tablets PO SCH ×4 (08:04→21:00)
[2019-12-27 08:10] VITALS: BP 127/87
[2019-12-27] MEDS: nystatin 15 GM powder TP SCH ×3 (12:07→20:33)
--- NOTE | 2019-12-27 15:48 | NUR ---
NURSING PROGRESS NOTE Legal hold: LPS Conserved Report received from Elli Perez RN with use of SBAR Why are they here: The patient was AWOL at previous facility and began to decompensate. She is LPS conserved. She was cooperative with admission however quite paranoid. Stated on her trip up to [place] someone at a rest stop told her she was going to stay at this facility for 17 years, and kept asking staff if that was true? Responded well to redirection and reassurance. Assessment What has happened this shift: Up and awake at change of shift. Asking repeatedly for hand purchasing engineer. Walked into nurse documenting room grabbed a bottle of purchasing engineer, pumped a handful. Intrusive over hand purchasing engineer, education provided regarding washing of hands and informed she is not to use purchasing engineer or help herself to it because she has a sink to wash her hands. It has been reported she was ingesting the hand purchasing engineer which she denied. She is able to be redirected. C/O rash or chafing of skin between thighs in groin area. Reddened area seen between thighs. Given Nystatin powder and instructed to get out of the scrub pants that are too tight for her and put on her soft cotton stretchy pants which she did and said "that helped." She is medication compliant and mostly cooperative. Denies suicidal thoughts, does appear to RIS, (sits on bed appearing to speak to someone in the room), makes no delusional statements this shift. SI/HI: Denies A/VH: Denies, but appears to be RIS Sleep: None ADL's: Independent. Group attendance: no Were meds taken: Yes Any med S/E: None noted or reported. Mental Status Exam Appearance: disheveled, clothes not fitting, pulls pants to lowest point, buttocks showing and belly showing in front. Eye contact: Good Behavior: Withdrawn Speech: Clear, soft Mood: Depressed Affect: guarded Thought process: Circumstantial Thought Content: wants hand purchasing engineer Cognition: Alert Insight: Poor Judgment: Fair Interventions PRN's used: None Therapeutic interventions: 1:1 assessment, active listening, therapeutic conversation, medication administration/education/monitoring, behavior monitoring and intervention as needed, limit setting, redirection, positive reinforcement, Q 15 minute safety checks. Restraints/seclusion/emergency medication: N/A Justification of Continued Inpatient Treatment: Pt decompensated at [facility] and so was sent here by conservator for stabilization, pt is unable to return to previous facility, pt needs medication management and monitoring in a safe and therapeutic environment until reaches her baseline. Pt is LPS conserved and will need placement.
[2019-12-27 19:21] VITALS: BP 140/92
[2019-12-27] MEDS: CLOMIPRAMINE HCL 50 MG CAPSULE PO SCH ×2 (20:28→21:00)
[2019-12-27] MEDS: traZODone 50mg tablet PO PRN (20:28)
[2019-12-27] MEDS ORDERED: ziprasidone IM 20mg inj **IM only ONE (20:59)
[2019-12-27] MEDS ORDERED: LORazepam 2 mg/ml vial ONE (21:02)
[2019-12-27] MEDS ORDERED: diphenhydrAMINE 50 mg/ml inj ONE (21:03)
--- NOTE | 2019-12-28 04:03 | NUR ---
NURSING PROGRESS NOTE Legal hold: LPS Conserved Report received from Damien RN with use of SBAR Why are they here: The patient was AWOL at previous facility and began to decompensate. She is LPS conserved. She was cooperative with admission however quite paranoid. Stated on her trip up to [place] someone at a rest stop told her she was going to stay at this facility for 17 years, and kept asking staff if that was true? Responded well to redirection and reassurance. Assessment What has happened this shift: Pt was in the hallway at change of shift and grabbed a male nurses hips. She was told to refrain from touching staff or any other patients. Pt appeared very nervous, pale and profusely sweating. She took evening meds and I stood there while she took them and she appeared to swallow them. I began a conversation with her and she initially continued the conversation when suddenlty she began to panic and stated "He gave me his pills! We traded pills and snorted them! I take yellow and pink pills, not these!" She then spit all her pills out and used one of her fingers to reach up in side of her cheek to get the out more pills. Pt may have been attempting to cheek her pills before she became panicked. Another patient had been found to be snorting his crushed up medications. Patient then asked if we could talk to him and we all went to his room, but the other patient was sleeping. Pt very agitated when she couldnt have a conversation with him and was asked to leave his bedroom. Pt states she snorted his medication with him over the weekend "friday and friday". Pt refused redirection and kept screaming that we were trying to give her heroin. Several attempts were made explaining to patient we are not giving her heroin, but she was convinced the other patient tampered with her medication. Pt stated she was going to "kick his ass" and was asked to go to the other end of the hallway and she refused while posturing and yelling in the charge nurses face. Pt was escorted to her room where she continued to scream and remained agitated. Security was called. Pt was given Geodon 20mg IM, Ativan 2mg IM, and Benadryl 50mg IM. Pt remained in her room for about 30 minutes when she returned to the floor and spent some time watching tv in the rec room and then group room before going back to bed. SI/HI: Denies A/VH: Denies, but appears to be RIS Sleep: see sleep hours, pt woke 3-4 times after going to bed to ask for water ADL's: Independent. Group attendance: no Were meds taken: Yes Any med S/E: None noted or reported. Mental Status Exam Appearance: disheveled, wearing personal clothing, pulls pants to lowest point, buttocks showing and belly showing in front. Eye contact: Good Behavior: RIS, agitated, yelling, continues to attempt to get hand underwear cutter to drink, cheeking pills Speech: Clear, soft Mood: Depressed, Affect: guarded Thought process: Circumstantial, paranoid Thought Content: paranoid that we are giving her the wrong meds and we are trying to give her heroin. Cognition: Alert Insight: Poor Judgment: Fair Interventions PRN's used: None Therapeutic interventions: 1:1 assessment, active listening, therapeutic conversation, medication administration/education/monitoring, behavior monitoring and intervention as needed, limit setting, redirection, positive reinforcement, Q 15 minute safety checks. Restraints/seclusion/emergency medication: N/A Justification of Continued Inpatient Treatment: Pt decompensated at [facility] and so was sent here by conservator for stabilization, pt is unable to return to previous facility, pt needs medication management and monitoring in a safe and therapeutic environment until reaches her baseline. Pt is LPS conserved and will need placement.
[2019-12-28] MEDS: acetaminophen 325mg tablet PO PRN (05:43)
[2019-12-28 07:26] VITALS: BP 128/81
[2019-12-28] MEDS: docusate sod 100mg capsule PO SCH ×2 (07:48→20:14)
[2019-12-28] MEDS: levoTHYROXINE 25mcg tablet PO SCH (07:48)
[2019-12-28] MEDS: perphenazine 8mg tablets PO SCH ×3 (07:48→20:14)
[2019-12-28] MEDS: lithium carbonate 300mg SR tablet (LithoBID) PO SCH ×3 (07:49→20:14)
[2019-12-28] MEDS: nicotine 7mg patch - 24hr TD SCH (07:49)
[2019-12-28] MEDS: glycopyrrolate 1mg tablet PO SCH ×2 (07:49→20:14)
[2019-12-28] MEDS: nystatin 15 GM powder TP SCH ×2 (09:12→20:14)
--- NOTE | 2019-12-28 11:49 | NUR ---
NURSING PROGRESS NOTE Legal hold: LPS Conserved Report received from BENI Hernandez with use of SBAR Why are they here: The patient was AWOL at previous facility and began to decompensate. She is LPS conserved. She was cooperative with admission however quite paranoid. Stated on her trip up to [place] someone at a rest stop told her she was going to stay at this facility for 17 years, and kept asking staff if that was true? Responded well to redirection and reassurance. Assessment What has happened this shift: Patient had behavioral incident last night requiring emergency medication IM. Stated, "I got a shot in my butt last night, but I don't know why, I can't remember." Calm, cooperative and pleasant. Medication compliant. Did not attend groups, napped at times. No other complaints. SI/HI: Denies A/VH: Denies, but appears to be RIS at times Sleep: None ADL's: Independent. Group attendance: no Were meds taken: Yes Any med S/E: None noted or reported. Mental Status Exam Appearance: disheveled Eye contact: Direct Behavior: Cooperative Speech: Clear, soft Mood: Euthymic Affect: blunted Thought process: Circumstantial Thought Content: when meals are, getting needs met, water, shower etc Cognition: Alert Insight: Poor Judgment: Fair Interventions PRN's used: None Therapeutic interventions: 1:1 assessment, active listening, therapeutic conversation, medication administration/education/monitoring, behavior monitoring and intervention as needed, limit setting, redirection, positive reinforcement, Q 15 minute safety checks. Restraints/seclusion/emergency medication: N/A Justification of Continued Inpatient Treatment: Pt decompensated at [facility] and so was sent here by conservator for stabilization, pt is unable to return to previous facility, pt needs medication management and monitoring in a safe and therapeutic environment until reaches her baseline. Pt is LPS conserved and will need placement.
--- NOTE | 2019-12-28 12:08 | NUR ---
Public Guardian/Placement Spoke to Alejandar (ph# [phone]), Bety's Public Guardian, to inform her that Bety admitted to swapping medications with another conserved patient. MITUL Martin
[2019-12-28 20:00] VITALS: BP 129/87
[2019-12-28] MEDS: CLOMIPRAMINE HCL 50 MG CAPSULE PO SCH (20:14)
[2019-12-28] MEDS: traZODone 50mg tablet PO PRN (20:14)
[2019-12-28] MEDS: LORazepam 1 MG tablet PO PRN (20:25)
[2019-12-28] MEDS: diphenhydrAMINE 25mg capsule PO PRN (20:26)
--- NOTE | 2019-12-28 21:56 | NUR ---
NURSING PROGRESS NOTE Legal hold: LPS Conserved Report received from BENI Hernandez with use of SBAR Why are they here: The patient was AWOL at previous facility and began to decompensate. She is LPS conserved. She was cooperative with admission however quite paranoid. Stated on her trip up to [place] someone at a rest stop told her she was going to stay at this facility for 17 years, and kept asking staff if that was true? Responded well to redirection and reassurance. Assessment What has happened this shift: Pt was laying in bed at change of shift. She was overheard laughing and talking to herself. She asked for "Ativan and benadryl" at HS stating she feels to "wound up" to go to sleep. Pt does not recall anything that happened last night and asked why I was going over her meds with her again. I explained she had some concerns about her medication last night and I wanted to be sure her questions were answered. SI/HI: Denies A/VH: Denies, was overheard talking and laughing to herself. Sleep: None ADL's: Independent. Group attendance: no Were meds taken: Yes Any med S/E: None noted or reported. Mental Status Exam Appearance: disheveled w Eye contact: Direct Behavior: Cooperative Speech: Clear, soft Mood: Euthymic Affect: blunted Thought process: Circumstantial Thought Content: wants to sleep Cognition: Alert Insight: Poor Judgment: Fair Interventions PRN's used: None Therapeutic interventions: 1:1 assessment, active listening, therapeutic conversation, medication administration/education/monitoring, behavior monitoring and intervention as needed, limit setting, redirection, positive reinforcement, Q 15 minute safety checks. Restraints/seclusion/emergency medication: N/A Justification of Continued Inpatient Treatment: Pt decompensated at [facility] and so was sent here by conservator for stabilization, pt is unable to return to previous facility, pt needs medication management and monitoring in a safe and therapeutic environment until reaches her baseline. Pt is LPS conserved and will need placement.
[2019-12-29 07:38] VITALS: BP 104/76
[2019-12-29] MEDS: nicotine 7mg patch - 24hr TD SCH ×2 (08:15→08:38)
[2019-12-29] MEDS: perphenazine 8mg tablets PO SCH ×3 (08:15→20:32)
[2019-12-29] MEDS: docusate sod 100mg capsule PO SCH ×2 (08:36→20:31)
[2019-12-29] MEDS: levoTHYROXINE 25mcg tablet PO SCH (08:37)
[2019-12-29] MEDS: lithium carbonate 300mg SR tablet (LithoBID) PO SCH ×3 (08:37→20:31)
[2019-12-29] MEDS: glycopyrrolate 1mg tablet PO SCH ×2 (08:37→20:31)
[2019-12-29] MEDS: nystatin 15 GM powder TP SCH ×2 (09:00→20:31)
[2019-12-29] MEDS ORDERED: perphenazine 8mg tablets PO ONE (13:10)
--- NOTE | 2019-12-29 14:19 | NUR ---
1:1-Individual CBT Presenting Issues: Pt's been experiencing increasing anxiety and demonstrating maladaptive coping behaviors (excessive use of & consumption of hand septic cleaner, swaping and snorting meds w/another pt), and constantly ask about PG's plan for her. Interventions: SS met w/pt, engaged her in 1:1 therapeutic interventions via utilization of CBT strategies. Pt able to acknowledged feeling anxious as she wants to be d/c and not knowing where she'll go when she is d/c, worries that "i might be locked up here". SS gently confronted pt re reports of pt swaping meds & snorting them with another pt here, pt admitted that the incident occurred but blames the other pt while minimizing her role. SS reflected back to pt her narrative of the incident and asked her what she would like to see as an outcome of her hospitalization here. Pt verbalized desires to discharge into an apartment or board & care facility. SS informed pt that it would be very difficult for the PG's office to place her in an unstructured environment because of her behaviors. SS worked w/pt to identify 2 strategies for avoiding negative peer pressure during her stay @ [facility] and role play an alternative way to handle any pressuring from other patients here. Pt was able to identify that she could have approach her nurse or any staff with her concerns about being pressured by another pt, or to simply walk away. SS instructed pt that she must inform a staff member if someone else tries to get her to share her meds with them. Pt was informed about PG's plan for IMD placement when pt is stable. Plan: SS will continue to meet w/pt 3x/week to support mood stabilization. Yeny Melendrez LCSW Addendum: 12/29/19 at 1434 by Yeny SAMAYOA Amended: Links added.
--- NOTE | 2019-12-29 14:56 | NUR ---
NURSING PROGRESS NOTE Legal hold: LPS Conserved Report received from BENI Hernandez with use of SBAR Why are they here: The patient was AWOL at previous facility and began to decompensate. She is LPS conserved. She was cooperative with admission however quite paranoid. Stated on her trip up to [place] someone at a rest stop told her she was going to stay at this facility for 17 years, and kept asking staff if that was true? Responded well to redirection and reassurance. Assessment What has happened this shift: Mostly agreeable today. Became agitated briefly about Public Guardian making decisions for her. Wants to go to a smoking facility but was told there are only a few that allow smoking. Basically just frustrated that no one can give her any immediate answers. Does not seem to remember conversations in the short term. Asking several times about placement. Otherwise cooperative and redirectable. SI/HI: Denies A/VH: Denies, but appears to be RIS at times Sleep: None ADL's: Independent. Group attendance: no Were meds taken: Yes Any med S/E: None noted or reported. Mental Status Exam Appearance: disheveled Eye contact: Direct Behavior: Cooperative Speech: Clear, soft Mood: Irritated at times Affect: blunted Thought process: Circumstantial Thought Content: placement and discharge Cognition: Alert Insight: Poor Judgment: Fair Interventions PRN's used: None Therapeutic interventions: 1:1 assessment, active listening, therapeutic conversation, medication administration/education/monitoring, behavior monitoring and intervention as needed, limit setting, redirection, positive reinforcement, Q 15 minute safety checks. Restraints/seclusion/emergency medication: N/A Justification of Continued Inpatient Treatment: Pt decompensated at [facility] and so was sent here by conservator for stabilization, pt is unable to return to previous facility, pt needs medication management and monitoring in a safe and therapeutic environment until reaches her baseline. Pt is LPS conserved and will need placement.
[2019-12-29] MEDS: LORazepam 1 MG tablet PO PRN (15:39)
[2019-12-29] MEDS: diphenhydrAMINE 25mg capsule PO PRN (18:46)
[2019-12-29 19:48] VITALS: BP 105/69
[2019-12-29] MEDS: CLOMIPRAMINE HCL 50 MG CAPSULE PO SCH (20:32)
--- NOTE | 2019-12-29 23:53 | NUR ---
NURSING PROGRESS NOTE Legal hold: LPS Conserved Report received from RICKIE Quezada with use of SBAR Why are they here: The patient was AWOL at previous facility and began to decompensate. She is LPS conserved. She was cooperative with admission however quite paranoid. Stated on her trip up to [place] someone at a rest stop told her she was going to stay at this facility for 17 years, and kept asking staff if that was true? Responded well to redirection and reassurance. Assessment What has happened this shift: Pt was visible in the unit during shift change. Came up to this chief underwriter and requested either Ativan or Benadryl. States that she is feeling anxious because she might be conserved for another year and doesnt know if where she will be placed they will allow her to smoke. Pt rates her anxiety a 02/20. Benadryl was given and she returned to her room for a nap. Pt was cooperative during 1:1 physical assessment and took all her HS meds. She denies any A/VH, S/I, H/I or depression and did not make any delusional statements. There was no agitation observed this evening and pt remained isolative sleeping in her room. Will continue to monitor. SI/HI: Denies A/VH: Denies Sleep: None ADL's: Independent. Group attendance: No groups during hourly shift manager Were meds taken: Yes Any med S/E: None noted or reported. Mental Status Exam Appearance: disheveled, wearing personal clothing and messy and unkempt hair Behavior: Cooperative, appears fatigued, slept for most of the evening Speech: Clear, soft, normal rate and rhythm Mood: Tired, anxious Affect: Flat Thought process: Circumstantial Thought Content: Smoking, discharge, medications Cognition: A/O X3 Insight: Poor Judgment: Poor Interventions PRN's used: Benadryl Therapeutic interventions: 1:1 assessment, active listening, therapeutic conversation, medication administration/education/monitoring, behavior monitoring and intervention as needed, limit setting, redirection, positive reinforcement, Q 15 minute safety checks. Restraints/seclusion/emergency medication: N/A Justification of Continued Inpatient Treatment: Pt decompensated at [facility] and so was sent here by conservator for stabilization, pt is unable to return to previous facility, pt needs medication management and monitoring in a safe and therapeutic environment until reaches her baseline. Pt is LPS conserved and will need placement.
[2019-12-30 08:00] VITALS: BP 114/89
[2019-12-30] MEDS: nystatin 15 GM powder TP SCH ×2 (08:00→19:21)
[2019-12-30] MEDS: lithium carbonate 300mg SR tablet (LithoBID) PO SCH ×3 (08:01→20:01)
[2019-12-30] MEDS: docusate sod 100mg capsule PO SCH ×2 (08:01→19:21)
[2019-12-30] MEDS: perphenazine 8mg tablets PO SCH ×2 (08:02→20:01)
[2019-12-30] MEDS: glycopyrrolate 1mg tablet PO SCH ×2 (08:02→19:21)
[2019-12-30] MEDS: levoTHYROXINE 25mcg tablet PO SCH (08:02)
[2019-12-30] MEDS ORDERED: perphenazine 8mg tablets PO SCH (08:42)
--- NOTE | 2019-12-30 11:31 | NUR ---
Reassessment: 75-100% PO intake. Great appetite. No nutrition. Recommendations: 1) Continue heart healthy diet 2) Routine bowel care 3) Scaled wts per rx Addendum: 12/30/19 at [address] Amended: Links added.
[2019-12-30] MEDS: NICOTINE POLACRILEX 2 MG LOZENGE BC PRN (11:55)
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
[2019-12-30 19:50] VITALS: BP 139/86
[2019-12-30] MEDS: CLOMIPRAMINE HCL 50 MG CAPSULE PO SCH (20:01)
--- NOTE | 2019-12-30 23:36 | NUR ---
Nursing Progress Note: Legal hold: LPS Client on involuntary status for GD Report received from nurse with use of SBAR: BENI Mcintosh Why are they here: The patient was AWOL at previous facility and began to decompensate. She is LPS conserved. She was cooperative with admission however quite paranoid. Stated on her trip up to [place] someone at a rest stop told her she was going to stay at this facility for 17 years, and kept asking staff if that was true? Responded well to redirection and reassurance. Assessment What has happened this shift: Pt was in ni waiting to speak to this rn at change of shift to ask for her meds early. Pt then asked to take a shower and was able to do so before going to bed. Pt did not have any complaints or behavior issues and was cooperative for 1:1. Pt was dressed appropriately and was seen interacting with other appropriately. S/I, H/I: Denies A/VH: Denies, does not appear internally preoccupied. Sleep: see sleep assessment ADL's: Independent Group attendance: No Were meds taken: Yes Any med S/E: None Mental Status Exam Appearance: in dirty scrubs, then in clean scrubs Eye contact: Fair Behavior: Cooperative, pleasant Speech: Soft, minimal Mood: Guarded Affect: Flat Thought process: Poverty of thought with possible thought blocking Thought Content: shower and bed Cognition: A&O X4 Insight: Fair Judgment: Fair Interventions PRN's used: none Therapeutic interventions: Introduced self and established rapport, maintained a safe and therapeutic environment, ensured contract for safety, provided clear and simple instructions, monitored behavior and need for intervention, and maintained Q 15min safety checks. Restraints/seclusion/emergency medication: N/A Justification of Continued Inpatient Treatment: Per Dr. Toscano, pt. is at baseline and will discharge per [facility] public guardian when housing is available.
[2019-12-31] MEDS: lithium carbonate 300mg SR tablet (LithoBID) PO SCH ×3 (07:22→20:01)
[2019-12-31] MEDS: docusate sod 100mg capsule PO SCH ×2 (07:22→19:35)
[2019-12-31] MEDS: glycopyrrolate 1mg tablet PO SCH ×2 (07:22→19:35)
[2019-12-31] MEDS: levoTHYROXINE 25mcg tablet PO SCH (07:22)
[2019-12-31] MEDS: perphenazine 8mg tablets PO SCH ×3 (07:23→20:00)
[2019-12-31 08:00] VITALS: BP 128/84
[2019-12-31] MEDS: nicotine 7mg patch - 24hr TD SCH (08:00)
[2019-12-31] MEDS: nystatin 15 GM powder TP SCH ×2 (08:00→19:36)
[2019-12-31] MEDS: LORazepam 1 MG tablet PO PRN ×2 (12:07→18:30)
[2019-12-31] MEDS: diphenhydrAMINE 25mg capsule PO PRN (12:07)
[2019-12-31] MEDS: perphenazine 8mg tablets PO PRN (12:07)
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
--- NOTE | 2019-12-31 16:49 | NUR ---
NO HAND FINAL ASSEMBLER: Please ensure that all staff members are aware that pt. is to be given no hand dividend clerk. Pt. was accidently given hand dividend clerk today by a staff member who was unaware of this, and she admitted that she ingested some. Dr. Toscano aware, will continue to monitor.
[2019-12-31] MEDS: acetaminophen 325mg tablet PO PRN (18:38)
[2019-12-31 19:31] VITALS: BP 103/69
[2019-12-31] MEDS: CLOMIPRAMINE HCL 50 MG CAPSULE PO SCH (20:01)
--- NOTE | 2020-01-01 00:42 | NUR ---
Nursing Progress Note: Legal hold: LPS Client on involuntary status for GD Report received from nurse with use of SBAR: BENI Mcintosh Why are they here: The patient was AWOL at previous facility and began to decompensate. She is LPS conserved. She was cooperative with admission however quite paranoid. Stated on her trip up to [place] someone at a rest stop told her she was going to stay at this facility for 17 years, and kept asking staff if that was true? Responded well to redirection and reassurance. Assessment What has happened this shift: Pt was in ni waiting to speak to this rn at change of shift to ask for her meds early. Pt then asked to take a shower and was able to do so before going to bed. Pt was cooperative for 1:1 and all care. pt was not seen exhibiting any bizarre behavior or agitation. Pt accepted all hs meds with no issue. S/I, H/I: Denies A/VH: Denies, does not appear internally preoccupied. Sleep: see sleep assessment ADL's: Independent Group attendance: No Were meds taken: Yes Any med S/E: None Mental Status Exam Appearance: in dirty scrubs, then in clean scrubs Eye contact: Fair Behavior: Cooperative, pleasant Speech: Soft, minimal Mood: Guarded Affect: Flat Thought process: Poverty of thought with possible thought blocking Thought Content: shower and bed Cognition: A&O X4 Insight: Fair Judgment: Fair Interventions PRN's used: none Therapeutic interventions: Introduced self and established rapport, maintained a safe and therapeutic environment, ensured contract for safety, provided clear and simple instructions, monitored behavior and need for intervention, and maintained Q 15min safety checks. Restraints/seclusion/emergency medication: N/A Justification of Continued Inpatient Treatment: Per Dr. Toscano, pt. is at baseline and will discharge per [facility] public guardian when housing is available.
[2020-01-01] MEDS: perphenazine 8mg tablets PO SCH ×3 (07:26→20:30)
[2020-01-01] MEDS: levoTHYROXINE 25mcg tablet PO SCH (07:26)
[2020-01-01] MEDS: lithium carbonate 300mg SR tablet (LithoBID) PO SCH ×3 (07:26→20:31)
[2020-01-01] MEDS: glycopyrrolate 1mg tablet PO SCH ×2 (07:26→20:29)
[2020-01-01] MEDS: docusate sod 100mg capsule PO SCH ×2 (07:26→20:31)
[2020-01-01] MEDS: LORazepam 1 MG tablet PO PRN ×2 (07:29→14:05)
[2020-01-01 08:00] VITALS: BP 113/62
[2020-01-01] MEDS: nystatin 15 GM powder TP SCH ×2 (08:00→20:32)
[2020-01-01] MEDS: nicotine 7mg patch - 24hr TD SCH (08:00)
[2020-01-01 09:08] LABS: URINE AMPHETAMINE SCREEN NEGATIVE (Neg); URINE BARBITUATE SCREEN NEGATIVE (Neg); URINE BENZODIAZEPINES SCREEN NEGATIVE (Neg); URINE CANNABINOID SCREEN NEGATIVE (Neg); URINE COCAINE SCREEN NEGATIVE (Neg); URINE METHADONE SCREEN NEGATIVE (Neg); URINE OPIATE SCREEN NEGATIVE (Neg); URINE PHENCYCLIDINE SCREEN NEGATIVE (Neg)
--- NOTE | 2020-01-01 15:23 | NUR ---
Nursing Progress Note: Legal hold: LPS Client on involuntary status for GD Report received from nurse with use of SBAR: Elli Perez RN Why are they here: The patient was AWOL at previous facility and began to decompensate. She is LPS conserved. She was cooperative with admission however quite paranoid. Stated on her trip up to [place] someone at a rest stop told her she was going to stay at this facility for 17 years, and kept asking staff if that was true? Responded well to redirection and reassurance. Assessment What has happened this shift: Received pt. asleep in bed at the beginning of the shift, this proposal writer awoke her to administer medications, and she attended breakfast afterwards in the Group Room. 1:1 completed at bedside, pt. again presents as cooperative, fatigued, guarded, withdrawn, and slightly anxious. She denies all MH s/s, however does admit to anxiety, and appears visibly anxious AEB leg bouncing and a troubled/paranoid look on her face. PRN Ativan administered with effectiveness.. No delusional statements made to this proposal writer, however in conferring with Dr. Toscano, he reports that pt. continues to present with the delusion that her son is just outside the unit and needs her help. Pt. up pacing in the hallway in the afternoon, and additional PRN Ativan administered upon request with effectiveness. She was able to make a few telephone calls, and is observed to be interacting more with others and smiling/singing to herself on a few occasions. S/I, H/I: Denies A/VH: Denies, does not appear internally preoccupied. Sleep: Pt. reports she did not sleep well last night r/t "Weird dreams." Sleep hours are 8.5 ADL's: Independent Group attendance: No Were meds taken: Yes Any med S/E: None Mental Status Exam Appearance: Neat and appropriately dressed Eye contact: Fair Behavior: Cooperative, fatigued, guarded, withdrawn, and slightly anxious Speech: Soft, responds with minimal 1-2 word answers Mood: Guarded Affect: Flat Thought process: Poverty of thought with possible thought blocking. Disorganization at times Thought Content: Paranoid delusions Cognition: A&O X4 Insight: Poor Judgment: Fair Interventions PRN's used: Nicotine Lozenge and Ativan Therapeutic interventions: Maintained a safe and therapeutic environment, ensured contract for safety, provided clear and simple instructions, monitored behavior and need for intervention, provided positive encouragement and encouraged pt. to request anxiolytic before anxiety gets out of hand, and maintained Q 15min safety checks. Restraints/seclusion/emergency medication: N/A Justification of Continued Inpatient Treatment: Per Dr. Toscano, pt. continues to have delusions, and will be monitored on her current dose of medication which was increased. She will discharge per [facility] public guardian when housing is available.
[2020-01-01] MEDS: CLOMIPRAMINE HCL 50 MG CAPSULE PO SCH (20:29)
--- NOTE | 2020-01-02 01:03 | NUR ---
Nursing Progress Note: Legal hold: LPS Client on involuntary status for GD Report received from nurse with use of SBAR: Mera RN Why are they here: The patient was AWOL at previous facility and began to decompensate. She is LPS conserved. She was cooperative with admission however quite paranoid. Stated on her trip up to [place] someone at a rest stop told her she was going to stay at this facility for 17 years, and kept asking staff if that was true? Responded well to redirection and reassurance. Assessment What has happened this shift: Patient was up and about the unit social with staff and peers. Pt asked several of the staff for hand data collection associate and was redirected to not ask for it. She continued to be social on unit until snack and medication time then went to bed. Pt denied SI/AH and showed no apparent s/s of anxiety. S/I, H/I: Denies A/VH: Denies, does not appear internally preoccupied. Sleep: Pt. reports she did not sleep well last night r/t "Weird dreams." Sleep hours are 8.5 ADL's: Independent Group attendance: No Were meds taken: Yes Any med S/E: None Mental Status Exam Appearance: Neat and appropriately dressed Eye contact: Fair Behavior: Cooperative, fatigued, guarded, withdrawn, and slightly anxious Speech: Soft, responds with minimal 1-2 word answers Mood: Guarded Affect: Flat Thought process: Poverty of thought with possible thought blocking. Disorganization at times Thought Content: Paranoid delusions Cognition: A&O X4 Insight: Poor Judgment: Fair Interventions PRN's used: none Therapeutic interventions: Maintained a safe and therapeutic environment, ensured contract for safety, provided clear and simple instructions, monitored behavior and need for intervention, provided positive encouragement and encouraged pt. to request anxiolytic before anxiety gets out of hand, and maintained Q 15min safety checks. Restraints/seclusion/emergency medication: N/A Justification of Continued Inpatient Treatment: Per Dr. Toscano, pt. continues to have delusions, and will be monitored on her current dose of medication which was increased. She will discharge per [facility] public guardian when housing is available.
[2020-01-02] MEDS: perphenazine 8mg tablets PO SCH ×3 (07:33→20:17)
[2020-01-02] MEDS: glycopyrrolate 1mg tablet PO SCH ×2 (07:33→20:20)
[2020-01-02] MEDS: lithium carbonate 300mg SR tablet (LithoBID) PO SCH ×3 (07:33→20:19)
[2020-01-02] MEDS: levoTHYROXINE 25mcg tablet PO SCH (07:33)
[2020-01-02] MEDS: docusate sod 100mg capsule PO SCH ×2 (07:33→20:19)
[2020-01-02 07:56] VITALS: BP 102/57
[2020-01-02] MEDS: nystatin 15 GM powder TP SCH (08:00)
[2020-01-02] MEDS: nicotine 7mg patch - 24hr TD SCH (08:00)
[2020-01-02] MEDS: LORazepam 1 MG tablet PO PRN ×2 (12:01→19:20)
--- NOTE | 2020-01-02 12:17 | NUR ---
Nursing Progress Note: Legal hold: LPS Client on involuntary status for GD Report received from nurse with use of SBAR: BENI Rice Why are they here: The patient was AWOL at previous facility and began to decompensate. She is LPS conserved. She was cooperative with admission however quite paranoid. Stated on her trip up to [place] someone at a rest stop told her she was going to stay at this facility for 17 years, and kept asking staff if that was true? Responded well to redirection and reassurance. Assessment What has happened this shift: Received pt. asleep in bed at the beginning of the shift, she awoke and was compliant with AM medications. 1:1 completed at bedside, pt. again presents as cooperative, guarded, withdrawn, but with decreased anxiety. She continues to deny all MH s/s, and remains guarded with conversation. No delusional statements made . Pt. later went out on the patio with others, however while outside she became increasingly anxious and appeared paranoid. Pt. requested to come back to the unit early and made the statement, "That aman out there is switching eyes with me, the one that has hepatitis C with eyes in the back of his head." Staff was able to provide redirection/reassurance to pt., but she continued to be anxious and requested PRN Ativan. Ativan administered with effectiveness, will continue to monitor. This gag writer questioned pt. further regarding the cause of her anxiety, she stated, "I just want to get out of here and hurry up and take the test so I don't have to be conserved." Pt. continues to be gravely disabled, with no adequate plan to care for herself. S/I, H/I: Denies A/VH: Denies, does not appear internally preoccupied. Sleep: Pt. reports that she again did not sleep well last night r/t "Weird dreams." Sleep hours are 8 ADL's: Independent Group attendance: No Were meds taken: Yes Any med S/E: None Mental Status Exam Appearance: Neat and appropriately dressed Eye contact: Fair Behavior: Cooperative, fatigued, guarded, withdrawn, and slightly anxious Speech: Soft, responds with minimal 1-2 word answers Mood: Guarded Affect: Flat Thought process: Poverty of thought with possible thought blocking. Disorganization at times Thought Content: Paranoid delusions Cognition: A&O X4 Insight: Poor Judgment: Fair Interventions PRN's used: Ativan Therapeutic interventions: Maintained a safe and therapeutic environment, ensured contract for safety, provided clear and simple instructions, monitored behavior and need for intervention, provided redirection/reassurance as needed, and maintained Q 15min safety checks. Restraints/seclusion/emergency medication: N/A Justification of Continued Inpatient Treatment: Per Dr. Toscano, pt. has had a recent exacerbation of psychotic s/s, and will be monitored on her current dose of medication which was increased. She remains GD, and will discharge per [facility] public guardian when housing is available.
[2020-01-02 20:00] VITALS: BP 156/90
[2020-01-02] MEDS: CLOMIPRAMINE HCL 50 MG CAPSULE PO SCH (20:19)
--- NOTE | 2020-01-03 00:28 | NUR ---
Nursing Progress Note: Legal hold: LPS Client on involuntary status for GD Report received from nurse with use of SBAR: BENI Tesfaye Why are they here: The patient was AWOL at previous facility and began to decompensate. She is LPS conserved. She was cooperative with admission however quite paranoid. Stated on her trip up to [place] someone at a rest stop told her she was going to stay at this facility for 17 years, and kept asking staff if that was true? Responded well to redirection and reassurance. Assessment What has happened this shift: Patient was pacing the ni and social with peers at shift change. she reported feeling anxious and requested a prn Ativan wich she states was helpful. Pt complained about being here for so long and wants to go home. After snack and meds pt went to bed. S/I, H/I: Denies A/VH: Denies, does not appear internally preoccupied. Sleep: Pt. reports that she again did not sleep well last night r/t "Weird dreams." Sleep hours are 8 ADL's: Independent Group attendance: No Were meds taken: Yes Any med S/E: None Mental Status Exam Appearance: Neat and appropriately dressed Eye contact: Fair Behavior: Cooperative, fatigued, guarded, withdrawn, and slightly anxious Speech: Soft, responds with minimal 1-2 word answers Mood: Guarded Affect: Flat Thought process: Poverty of thought with possible thought blocking. Disorganization at times Thought Content: Paranoid delusions Cognition: A&O X4 Insight: Poor Judgment: Fair Interventions PRN's used: Ativan Therapeutic interventions: Maintained a safe and therapeutic environment, ensured contract for safety, provided clear and simple instructions, monitored behavior and need for intervention, provided redirection/reassurance as needed, and maintained Q 15min safety checks. Restraints/seclusion/emergency medication: N/A Justification of Continued Inpatient Treatment: Per Dr. Toscano, pt. has had a recent exacerbation of psychotic s/s, and will be monitored on her current dose of medication which was increased. She remains GD, and will discharge per [facility] public guardian when housing is available.
[2020-01-03 07:56] VITALS: BP 111/77
[2020-01-03] MEDS: nicotine 7mg patch - 24hr TD SCH (08:00)
[2020-01-03] MEDS: docusate sod 100mg capsule PO SCH ×2 (08:16→20:21)
[2020-01-03] MEDS: levoTHYROXINE 25mcg tablet PO SCH (08:16)
[2020-01-03] MEDS: lithium carbonate 300mg SR tablet (LithoBID) PO SCH ×3 (08:16→20:21)
[2020-01-03] MEDS: glycopyrrolate 1mg tablet PO SCH ×2 (08:16→20:21)
[2020-01-03] MEDS: perphenazine 8mg tablets PO SCH ×3 (08:17→20:20)
[2020-01-03] MEDS: LORazepam 1 MG tablet PO PRN (17:35)
--- NOTE | 2020-01-03 17:38 | NUR ---
Nursing Progress Note: Bety Legal hold: LPS Client on involuntary status for GD Report received from nurse with use of SBAR: Dwayne RN Why are they here: The patient was AWOL at previous facility and began to decompensate. She is LPS conserved. She was cooperative with admission however quite paranoid. Stated on her trip up to [place] someone at a rest stop told her she was going to stay at this facility for 17 years, and kept asking staff if that was true? Responded well to redirection and reassurance. Assessment What has happened this shift: Patient pleasant and quiet and compliant this morning. States she slept okay, denies anxiety. While with patients roommate assumed patient was on the phone on the other side of the curtain however once came to her side noted she was not on the phone. When asked her about this patient states she was talking to a friend to see what she thought about something. Patient asked in a concerned voice, youre not documenting that I was hallucinating are you? As the day progress she found out paperwork was pending for [facility], this improved her affect and made her smile more because she expressed wanting to go there. This evening she became upset and expressed that she saw another patient Eugene follow her son into her room and kill her son. Attempted to console and redirect patient, was unsuccessful. Offered Ativan, refused initially then agreed to take it. Paced halls all day today, wishes to leave this facility. She visited with her roommate for a bit and slept some but overall was awake most of the day. S/I, H/I: Denies A/VH: Denies, however heard her having a conversation to find her talking to herself Sleep: Pt. reports that she slept okay and had "Weird dreams." Slept 9.25 hrs last noc ADL's: Independent Group attendance: No Were meds taken: Yes Any med S/E: Ativan Mental Status Exam Appearance: Neat and appropriately dressed Eye contact: Fair Behavior: Cooperative, guarded, slightly anxious Speech: WNL, tone fluctuated with expression Mood: Guarded Affect: Appropriate to context Thought process: Poverty of thought with possible thought blocking. Disorganization at times Thought Content: Paranoid delusions Cognition: A&O X4 Insight: Poor Judgment: Fair Interventions PRN's used: Ativan Therapeutic interventions: Maintained a safe and therapeutic environment, ensured contract for safety, provided clear and simple instructions, monitored behavior and need for intervention, provided redirection/reassurance as needed, and maintained Q 15min safety checks. Restraints/seclusion/emergency medication: N/A Justification of Continued Inpatient Treatment: Per Dr. Toscano, pt. has had a recent exacerbation of psychotic s/s, and will be monitored on her current dose of medication which was increased. She remains GD, and will discharge per [facility] public guardian when housing is available
[2020-01-03 20:00] VITALS: BP 118/80
[2020-01-03] MEDS: CLOMIPRAMINE HCL 50 MG CAPSULE PO SCH (20:22)
--- NOTE | 2020-01-03 20:30 | NUR ---
I spoke with patient about our concerns with her skin and asked if she would allow me to assess her. She was fine with it and we went to her room, I observed that she does have a red rash to bilateral thighs (thighs touch and are very moist) and slight redness to groin area, with one small open area. There is a strong yeast smell, pt did state she had just showered. Pt had prior treatment with nystatin powder so order obtained to resume the same and encourage patient to allow nurses to apply the powder to help the rash resolve. She verbalized understanding.
--- NOTE | 2020-01-04 00:38 | NUR ---
Nursing Progress Note: Bety Legal hold: LPS Client on involuntary status for GD Report received from nurse with use of SBAR: Mera RN Why are they here: The patient was AWOL at previous facility and began to decompensate. She is LPS conserved. She was cooperative with admission however quite paranoid. Stated on her trip up to [place] someone at a rest stop told her she was going to stay at this facility for 17 years, and kept asking staff if that was true? Responded well to redirection and reassurance. Assessment What has happened this shift: Patient was up and walking the halls at shift change. Pt was in a good mood and cooperative.She allowed the charge nurse to check her rash and treat it. During the tx, Per the charge nurse pt asked " Do you see a person on my bed." The nurse responded no your mind is playing tricks with you. Pt was med compliant and pleasant. Pt went to bed after meds. S/I, H/I: Denies A/VH: Pt has been having V/H. Sleep: Pt. reports that she slept okay and had "Weird dreams." Slept 9.25 hrs last noc ADL's: Independent Group attendance: No Were meds taken: Yes Any med S/E: Ativan Mental Status Exam Appearance: Neat and appropriately dressed Eye contact: Fair Behavior: Cooperative, guarded, slightly anxious Speech: WNL, tone fluctuated with expression Mood: Guarded Affect: Appropriate to context Thought process: Poverty of thought with possible thought blocking. Disorganization at times Thought Content: Paranoid delusions Cognition: A&O X4 Insight: Poor Judgment: Fair Interventions PRN's used: Ativan Therapeutic interventions: Maintained a safe and therapeutic environment, ensured contract for safety, provided clear and simple instructions, monitored behavior and need for intervention, provided redirection/reassurance as needed, and maintained Q 15min safety checks. Restraints/seclusion/emergency medication: N/A Justification of Continued Inpatient Treatment: Per Dr. Toscano, pt. has had a recent exacerbation of psychotic s/s, and will be monitored on her current dose of medication which was increased. She remains GD, and will discharge per [facility] public guardian when housing is available
[2020-01-04 07:00] VITALS: BP 148/97
[2020-01-04] MEDS: nicotine 7mg patch - 24hr TD SCH (08:37)
[2020-01-04] MEDS: perphenazine 8mg tablets PO SCH (08:37)
[2020-01-04] MEDS: levoTHYROXINE 25mcg tablet PO SCH (08:37)
[2020-01-04] MEDS: nystatin 15 GM powder TP SCH ×3 (08:39→20:33)
[2020-01-04] MEDS: lithium carbonate 300mg SR tablet (LithoBID) PO SCH ×3 (08:39→20:12)
[2020-01-04] MEDS: glycopyrrolate 1mg tablet PO SCH ×2 (08:39→20:12)
[2020-01-04] MEDS: docusate sod 100mg capsule PO SCH ×2 (08:39→20:13)
[2020-01-04] MEDS: LORazepam 1 MG tablet PO PRN ×2 (09:32→15:45)
[2020-01-04] MEDS ORDERED: benztropine 1mg tablet PO ONE (11:10)
--- NOTE | 2020-01-04 14:55 | NUR ---
Nursing Progress Note: Bety Legal hold: LPS Client on involuntary status for GD Report received from nurse with use of SBAR: Mary RN Why are they here: The patient was AWOL at previous facility and began to decompensate. She is LPS conserved. She was cooperative with admission however quite paranoid. Stated on her trip up to [place] someone at a rest stop told her she was going to stay at this facility for 17 years, and kept asking staff if that was true? Responded well to redirection and reassurance. Assessment What has happened this shift: Received pt sleeping in bed at shift change. Pt. Up and social on the unit. Pt. Keeps requesting hand inorganic chemist, but was found to be drinking it as soon as she left room. She has not been allowed to use hand inorganic chemist thereafter. Patient reports that she is anxious and received Ativan with good effect. S/I, H/I: Denies A/VH: Denies Sleep: 8.25 hrs. ADL's: Independent Group attendance: No Were meds taken: Yes Any med S/E: Facial TD Mental Status Exam Appearance: Well groomed in unit attire. Eye contact: Fair Behavior: Cooperative, guarded, slightly anxious Speech: Clear, normal rate and volume. Mood: Depressed. Affect: Anxious. Thought process: Circumstantial. Poverty. Thought Content: Pt. Wanting to discharge. Cognition: A&O X4 Insight: Poor Judgment: Fair Interventions PRN's used: Ativan Therapeutic interventions: Maintained a safe and therapeutic environment, ensured contract for safety, provided clear and simple instructions, monitored behavior and need for intervention, provided redirection/reassurance as needed, and maintained Q 15min safety checks. Restraints/seclusion/emergency medication: N/A Justification of Continued Inpatient Treatment: Per Dr. Toscano, pt. has had a recent exacerbation of psychotic s/s, and will be monitored on her current dose of medication which was increased. She remains GD, and will discharge per [facility] public guardian when housing is available Addendum: 01/04/20 at 1742 by Julissa Hernandez RN Pt given Ativan x1 for anxiety
[2020-01-04 20:00] VITALS: BP 125/68
[2020-01-04] MEDS: traZODone 50mg tablet PO PRN (20:11)
[2020-01-04] MEDS: CLOMIPRAMINE HCL 50 MG CAPSULE PO SCH (20:13)
--- NOTE | 2020-01-05 00:41 | NUR ---
Nursing Progress Note: Bety Legal hold: LPS Client on involuntary status for GD Report received from nurse with use of SBAR: Mera RN Why are they here: The patient was AWOL at previous facility and began to decompensate. She is LPS conserved. She was cooperative with admission however quite paranoid. Stated on her trip up to [place] someone at a rest stop told her she was going to stay at this facility for 17 years, and kept asking staff if that was true? Responded well to redirection and reassurance. Assessment What has happened this shift: Patient was up an social in the ni this shift. Pt approached several staff members asking for hand hospital tray service worker. She asked this technical writer if I would administrative resident a small bottle of her own. She stated she needs it to feel that buzz. After asking the floor staff she went in to 's office and asked him to administrative resident her hand hospital tray service worker. Pt 's rash appears a little better but had some bleeding from her scratching at it. Pt ws med compliant and went to bed. S/I, H/I: Denies A/VH: Denies Sleep: 8.25 hrs. ADL's: Independent Group attendance: No Were meds taken: Yes Any med S/E: Facial TD Mental Status Exam Appearance: Well groomed in unit attire. Eye contact: Fair Behavior: Cooperative, guarded, slightly anxious Speech: Clear, normal rate and volume. Mood: Depressed. Affect: Anxious. Thought process: Circumstantial. Poverty. Thought Content: Pt. Wanting to discharge. Cognition: A&O X4 Insight: Poor Judgment: Fair Interventions PRN's used: Trazodone Therapeutic interventions: Maintained a safe and therapeutic environment, ensured contract for safety, provided clear and simple instructions, monitored behavior and need for intervention, provided redirection/reassurance as needed, and maintained Q 15min safety checks. Restraints/seclusion/emergency medication: N/A Justification of Continued Inpatient Treatment: Per Dr. Toscano, pt. has had a recent exacerbation of psychotic s/s, and will be monitored on her current dose of medication which was increased. She remains GD, and will discharge per [facility] public guardian when housing is available
[2020-01-05 08:00] VITALS: BP 138/96
[2020-01-05] MEDS: nicotine 7mg patch - 24hr TD SCH (08:00)
[2020-01-05 08:03] LABS: BASOPHILS # (AUTO) 0.1 X10'3 (0-0.2); BASOPHILS % (AUTO) 0.9 % (0-1); EOSINOPHILS # (AUTO) 0.2 X10'3 (0-0.9); EOSINOPHILS % (AUTO) 2.9 % (0-6); HEMATOCRIT 29.5 % (35.0-45.0); HEMOGLOBIN 9.5 g/dl (12.0-16.0); LYMPHOCYTES # (AUTO) 2.4 X10'3 (1.1-4.8); LYMPHOCYTES % (AUTO) 40.5 % (21-51); MEAN CORPUSCULAR HEMOGLOBIN 28.2 PG (27.0-31.0); MEAN CORPUSCULAR HGB CONC 32.3 g/dL (33.0-36.5); MEAN CORPUSCULAR VOLUME 87.3 FL (78-98); MONOCYTES # (AUTO) 0.5 X10'3 (0-0.9); MONOCYTES % (AUTO) 8.6 % (2-12); NEUTROPHILS # (AUTO) 2.8 X10'3 (1.8-7.7); NEUTROPHILS % (AUTO) 47.1 % (42-75); PLATELET COUNT 365 X10'3 (140-440); RED BLOOD COUNT 3.38 X10'6 (4.20-5.60); RED CELL DISTRIBUTION WIDTH 16.6 % (11.5-14.5); WHITE BLOOD COUNT 5.9 X10'3 (4.5-11.0)
[2020-01-05] MEDS: levoTHYROXINE 25mcg tablet PO SCH (08:23)
[2020-01-05] MEDS: docusate sod 100mg capsule PO SCH ×2 (08:23→20:09)
[2020-01-05] MEDS: glycopyrrolate 1mg tablet PO SCH ×2 (08:24→20:07)
[2020-01-05] MEDS: lithium carbonate 300mg SR tablet (LithoBID) PO SCH ×3 (08:24→20:09)
[2020-01-05] MEDS: nystatin 15 GM powder TP SCH ×3 (08:24→20:13)
[2020-01-05 08:28] LABS: ALANINE AMINOTRANSFERASE 18 U/L (12-78); ALBUMIN 3.3 G/DL (3.4-5.0); ALBUMIN/GLOBULIN RATIO 0.9 (1.1-1.5); ALKALINE PHOSPHATASE 83 IU/L (46-116); ANION GAP 9 (8-16); ASPARTATE AMINO TRANSFERASE 15 U/L (10-37); BILIRUBIN,TOTAL 0.3 MG/DL (0.1-1.0); BLOOD UREA NITROGEN 8 MG/DL (7-18); BUN/CREATININE RATIO 7.2 (6.6-38.0); CALCIUM 8.7 MG/DL (8.5-10.1); CHLORIDE 107 MMOL/L (99-107); CREATININE 1.11 MG/DL (0.40-0.90); GLUCOSE 84 MG/DL (70-104); POTASSIUM 3.8 MMOL/L (3.5-5.1); SODIUM 138 MMOL/L (135-145); TOTAL PROTEIN 6.9 G/DL (6.4-8.2); eGFR 57 ML/MIN
[2020-01-05] MEDS: LORazepam 1 MG tablet PO PRN (10:34)
[2020-01-05] MEDS: diphenhydrAMINE 25mg capsule PO PRN (15:32)
--- NOTE | 2020-01-05 16:18 | NUR ---
Nursing Progress Note: Bety Legal hold: LPS Client on involuntary status for GD Report received from nurse with use of SBAR: Mary Why are they here: The patient was AWOL at previous facility and began to decompensate. She is LPS conserved. She was cooperative with admission however quite paranoid. Stated on her trip up to [place] someone at a rest stop told her she was going to stay at this facility for 17 years, and kept asking staff if that was true? Responded well to redirection and reassurance. Assessment What has happened this shift: Patient to begin this shift and reported no issues with her care. Client is malodorous and seems unable to clean herself. Client has been prompted several times to shower and continues to claim that she showers multiple times a day and is not in need of one today. Client was amicable to medications and assessment but Nicotine replacement patch was rejected this am. Client has tried the entire shift to obtain hand shade classifier. When questioned, she stated that she swallows hand shade classifier because she has, a sore throat and shade classifier helps it. Client has made several requests for hand shade classifier this afternoon. S/I, H/I: Denies A/VH: Denies Sleep: 8.25 hrs. ADL's: needs prompting. Group attendance: no Were meds taken: Yes Any med S/E: none noted Mental Status Exam Appearance: Malodorous and unkept. Eye contact: Fair Behavior: Cooperative, guarded, slightly anxious Speech: Clear, normal rate and volume. Mood: Depressed. Affect: Anxious. Thought process: Circumstantial. Poverty of Thought Content: Pt. Wanting to discharge. Cognition: A&O X4 Insight: Poor Judgment: Fair
[2020-01-05 19:43] VITALS: BP 138/88
[2020-01-05] MEDS: CLOMIPRAMINE HCL 50 MG CAPSULE PO SCH (20:04)
[2020-01-05] MEDS: traZODone 50mg tablet PO PRN (20:10)
--- NOTE | 2020-01-05 23:10 | NUR ---
Nursing Progress Note: Bety Legal hold: LPS Client on involuntary status for GD Report received from nurse with use of SBAR: Cathy RN Why are they here: The patient was AWOL at previous facility and began to decompensate. She is LPS conserved. She was cooperative with admission however quite paranoid. Stated on her trip up to [place] someone at a rest stop told her she was going to stay at this facility for 17 years, and kept asking staff if that was true? Responded well to redirection and reassurance. Assessment What has happened this shift: Patient was active on the unit at shift change and was observed walking the halls and occasionally watching TV for brief periods. She comes up to staff and asks for hand dead mail checker, which was not given to her. Pt isolated to her room soon after shift change. She is pleasant during 1:1 and cooperative. She states there have been 2 people sleeping in her bed and she can hear them. "If you look hard enough you can see them too." She denies SI/HI. Pt was med compliant and utilized prn trazodone for sleep. S/I, H/I: Denies A/VH: +AH +VH Sleep: see sleep assessment ADL's: Independent Group attendance: No Were meds taken: Yes Any med S/E: none reported, none observed Mental Status Exam Appearance: Well groomed, wearing own clothes Eye contact: Fair Behavior: Cooperative, guarded, slightly anxious Speech: Clear, normal rate and volume. Mood: Depressed. Affect: flat Thought process: Circumstantial Thought Content: Pt. Wanting to discharge or obtain hand dead mail checker Cognition: A&O X4 Insight: Poor Judgment: Fair Interventions PRN's used: Trazodone Therapeutic interventions: Maintained a safe and therapeutic environment, ensured contract for safety, provided clear and simple instructions, monitored behavior and need for intervention, provided redirection/reassurance as needed, and maintained Q 15min safety checks. Restraints/seclusion/emergency medication: N/A Justification of Continued Inpatient Treatment: Per Dr. Toscano, pt. has had a recent exacerbation of psychotic s/s, and will be monitored on her current dose of medication which was increased. She remains GD, and will discharge per [facility] public guardian when housing is available
[2020-01-06 08:00] VITALS: BP 115/54
[2020-01-06] MEDS: nicotine 7mg patch - 24hr TD SCH (08:00)
[2020-01-06] MEDS: docusate sod 100mg capsule PO SCH ×2 (08:12→20:55)
[2020-01-06] MEDS: glycopyrrolate 1mg tablet PO SCH ×2 (08:12→20:52)
[2020-01-06] MEDS: lithium carbonate 300mg SR tablet (LithoBID) PO SCH ×3 (08:12→20:54)
[2020-01-06] MEDS: levoTHYROXINE 25mcg tablet PO SCH (08:12)
[2020-01-06] MEDS: nystatin 15 GM powder TP SCH ×3 (08:15→21:00)
[2020-01-06] MEDS ORDERED: benzocaine/menthol oral lozeng 1 EACH BOX MM PRN (09:40)
--- NOTE | 2020-01-06 10:00 | NUR ---
This Clinicians goal for this process group were as follows: (1) Introduce and provide psychoeducation on Hernandez ABC method. (2) Practice working through Hernandez ABC method using examples provided by this Clinician. (3) Encourage Patients to process some of their own reoccurring situations utilizing Hernandez ABC methodology. (4) Process Clients thoughts and reflections on this topic within the group milieu. Patient identified experiencing the following levels of anxiety, depression, and anger/irritability while present in the group milieu. Anxiety: 08/23 Depression: 07/23 Anger/irritability: 07/23 Patient presented as open and cooperative within the group milieu. Patient wore Playroom scrubs within the milieu. She was present at the beginning of the process group. She offered her thoughts regarding how she would feel when this Clinician described an example of a negative activating event, in the context of identifying emotional consequences. Patient presented as nonobrusive within the group milieu. After Patient finished eating a snack, she left the milieu and the psychoeducation handouts that this Clinician gave to her, and quietly left the milieu without any comments about seven minutes into the process group. She did not return. Luis Antonio MA, MITUL Addendum: 01/06/20 at 1130 by Luis Antonio SS Amended: Links added.
[2020-01-06] MEDS: LORazepam 1 MG tablet PO PRN ×2 (10:50→11:40)
--- NOTE | 2020-01-06 11:47 | NUR ---
Reassessment: Pt PO 75-100% avg meals meeting needs. LBM 01/01; receiving routine colace though documented as moderate BM's daily. MARIAN d/w charge aide regarding additional bowel care if true constipation and MD agreeable. No nutrition concerns at this time. Will continue to monitor. Recommendations: 1) Continue heart healthy diet 2) Routine bowel care 3) Scaled wts per rx Addendum: 01/06/20 at [address] Amended: Links added.
--- NOTE | 2020-01-06 12:27 | NUR ---
NURSING PROGRESS NOTE Legal hold: LPS Client on involuntary status for GD Report received from BENI Hernandez with use of SBAR Why are they here: The patient was AWOL at previous facility and began to decompensate. She is LPS conserved. She was cooperative with admission however quite paranoid. Stated on her trip up to [place] someone at a rest stop told her she was going to stay at this facility for 17 years, and kept asking staff if that was true? Responded well to redirection and reassurance. Assessment What has happened this shift: Sleeping at change of shift, up for breakfast, then back to bed. Sleepy in morning. When up started to complain that she has a "Covid" sorethroat and she needs hand director of vendor management to drink which will "kill" the Covid in her throat. Order received from Dr. Toscano for throat lozenges, given to patient and she stated, "aah, that's better now." In late morning was given an Ativan 1mg for increased anxiety over vaginal bleeding, (states when she goes to bathroom gets blood on her hands), was given bath wipes to help cleanse her hands and groin area. Reports having a BM yesterday and is no longer feeling constipated. Continued to have increased anxiety late morning stating, "there's a girl in my bed and she took the pill (Ativan) out of my stomach, if you come in there you can see her." Gave patient the repeat x1 dose of Ativan as prescribed which did appear to calm patient. Cooperative and redirectable. S/I, H/I: Denies A/VH: +AH +VH Sleep: napped ADL's: Independent Group attendance: No Were meds taken: Yes Any med S/E: none reported, none observed Mental Status Exam Appearance: slightly disheveled Eye contact: direct Behavior: Cooperative,anxious Speech: Clear, normal rate and volume. Mood: Depressed, anxious Affect: blunted Thought process: delusional Thought Content: worried about sorethroat and a girl in her bed Cognition: Alert Insight: Poor Judgment: Poor Interventions PRN's used: Ativan x2 Therapeutic interventions: Maintained a safe and therapeutic environment, ensured contract for safety, provided clear and simple instructions, monitored behavior and need for intervention, provided redirection/reassurance as needed, and maintained Q 15min safety checks. Restraints/seclusion/emergency medication: N/A Justification of Continued Inpatient Treatment: Per Dr. Toscano, pt. has had a recent exacerbation of psychotic s/s, and will be monitored on her current dose of medication which was increased. She remains GD, and will discharge per [facility] public guardian when housing is available
[2020-01-06] MEDS: NICOTINE POLACRILEX 2 MG LOZENGE BC PRN (18:57)
[2020-01-06 20:00] VITALS: BP 122/71
[2020-01-06] MEDS: CLOMIPRAMINE HCL 50 MG CAPSULE PO SCH (20:54)
--- NOTE | 2020-01-07 00:58 | NUR ---
Nursing Progress Note: Bety Legal hold: LPS Client on involuntary status for GD Report received from nurse with use of SBAR: Gordon RN Why are they here: The patient was AWOL at previous facility and began to decompensate. She is LPS conserved. She was cooperative with admission however quite paranoid. Stated on her trip up to [place] someone at a rest stop told her she was going to stay at this facility for 17 years, and kept asking staff if that was true? Responded well to redirection and reassurance. Assessment What has happened this shift: Patient isolates to her room the majority of the shift. She appears in thought, but when asked how she is doing she replies, "well I don't think I have slept in 4 days so maybe I need a shot." Pt reminded that she has been sleeping each night with no reports of trouble. She replies, "oh. okay." Pt reassure dthat if she is having trouble sleeping to tell staff so that proper medication can be given. She verbalizes understanding. Pt asked if she was still seeing or hearing people in her bed and she shakes her head "no." Pt is not observed responding to internal stimuli this shift. She denies SI/HI. Pt was medication compliant. S/I, H/I: Denies A/VH: denies this shift Sleep: see sleep assessment ADL's: Independent Group attendance: shift supervisor film processing no group Were meds taken: Yes Any med S/E: none reported, none observed Mental Status Exam Appearance: wearing own clothes Eye contact: Fair Behavior: Cooperative, guarded, slightly anxious Speech: Clear, normal rate and volume. Mood: Depressed. Affect: flat Thought process: Circumstantial Thought Content: Pt. Wanting to discharge Cognition: A&O X4 Insight: Poor Judgment: Fair Interventions PRN's used: NA Therapeutic interventions: Maintained a safe and therapeutic environment, ensured contract for safety, provided clear and simple instructions, monitored behavior and need for intervention, provided redirection/reassurance as needed, and maintained Q 15min safety checks. Restraints/seclusion/emergency medication: N/A Justification of Continued Inpatient Treatment: Per Dr. Toscano, pt. has had a recent exacerbation of psychotic s/s, and will be monitored on her current dose of medication which was increased. She remains GD, and will discharge per [facility] public guardian when housing is available
[2020-01-07 07:54] VITALS: BP 118/78
[2020-01-07] MEDS: nystatin 15 GM powder TP SCH ×3 (08:00→21:00)
[2020-01-07] MEDS: nicotine 7mg patch - 24hr TD SCH (08:00)
[2020-01-07] MEDS: glycopyrrolate 1mg tablet PO SCH ×2 (08:15→21:19)
[2020-01-07] MEDS: docusate sod 100mg capsule PO SCH ×2 (08:15→21:14)
[2020-01-07] MEDS: levoTHYROXINE 25mcg tablet PO SCH (08:16)
[2020-01-07] MEDS: lithium carbonate 300mg SR tablet (LithoBID) PO SCH ×3 (08:16→21:14)
--- NOTE | 2020-01-07 14:04 | NUR ---
NURSING PROGRESS NOTE Legal hold: LPS Client on involuntary status for GD Report received from BENI Hernandez with use of SBAR Why are they here: The patient was AWOL at previous facility and began to decompensate. She is LPS conserved. She was cooperative with admission however quite paranoid. Stated on her trip up to [place] someone at a rest stop told her she was going to stay at this facility for 17 years, and kept asking staff if that was true? Responded well to redirection and reassurance. Assessment What has happened this shift: Slept in this morning, up for breakfast and then back to bed. Up later in morning walking a bit in hallway, talking briefly with peers. No other changes today. Calm. Took a shower as patient was quite malodorous. Med compliant, cooperative, redirectable. Appears to be having visual hallucinations at times, asks "what is that?" Accepts response there is nothing there. S/I, H/I: Denies A/VH: +AH +VH Sleep: napped ADL's: Independent Group attendance: No Were meds taken: Yes Any med S/E: none reported, none observed Mental Status Exam Appearance: slightly disheveled, malodorous Eye contact: direct Behavior: Cooperative,calm Speech: Clear, soft, slow Mood: Depressed, Affect: blunted Thought process: circumstantial Thought Content: discharge planning, where will she go next Cognition: Alert Insight: Poor Judgment: Poor Interventions PRN's used: None Therapeutic interventions: Maintained a safe and therapeutic environment, ensured contract for safety, provided clear and simple instructions, monitored behavior and need for intervention, provided redirection/reassurance as needed, and maintained Q 15min safety checks. Restraints/seclusion/emergency medication: N/A Justification of Continued Inpatient Treatment: Per Dr. Toscano, pt. has had a recent exacerbation of psychotic s/s, and will be monitored on her current dose of medication which was increased. She remains GD, and will discharge per [facility] public guardian when housing is available
[2020-01-07] MEDS: LORazepam 1 MG tablet PO PRN (15:28)
--- NOTE | 2020-01-07 15:30 | NUR ---
INCREASED AGITATION REQUIRED ATIVAN Unit became elevated as a whole and patient became agitated, talking about needing a throat scan due to COVID, saying, "none of you are helping me, I've told you this before." MD aware. Ativan 2mg given with good results.
[2020-01-07 19:00] VITALS: BP 101/51
--- NOTE | 2020-01-07 19:31 | NUR ---
Patient ambulates hallways. She approaches this web content writer. Patients talks quietly, she tells this web content writer "I miss you." The patient then requests this web content writer to help her by obtaining hand manager assisted living from the trash. "It's for my throat, I've got Elephantiasis." This web content writer assures this patient that no hand manager assisted living would be issued and no other employees would be supplying her with any manager assisted living for her oral consumption. The patient denies other complaints. At shift change this patient attempted to eloped from the nurse charting room with a bottle of hand manager assisted living. The bottle was retrieved prior to the patient using it.
[2020-01-07] MEDS ORDERED: FERROUS SULFATE 142 MG TABLET.ER (45mg elemental) PO SCH (21:00)
[2020-01-07] MEDS ORDERED: IRON,CARBONYL (45 MG ELEMENTAL IRON) SR.TABLET PO SCH (21:00)
[2020-01-07] MEDS: CLOMIPRAMINE HCL 50 MG CAPSULE PO SCH (21:15)
--- NOTE | 2020-01-07 23:49 | NUR ---
NURSING PROGRESS NOTE Legal hold: LPS Client on involuntary status for GD Report received from BENI Leyva with use of SBAR Why are they here: The patient was AWOL at previous facility and began to decompensate. She is LPS conserved. She was cooperative with admission however quite paranoid. Stated on her trip up to [place] someone at a rest stop told her she was going to stay at this facility for 17 years, and kept asking staff if that was true? Responded well to redirection and reassurance. Assessment What has happened this shift: Patient is ambulatory and social. Patient attempted to take hand head sulfide operator from the nursing pod and elope with it. Patient then tried to get this writer producer to let her have a bottle to drink. (See earlier note.) Patient looks to be responding to internal stimuli at times. Patient denies S/I or H/I. She denies hallucinations. Per day shift this patient had both audible and visual hallucinations. This patient is medication compliant. Patient exhibits a flat affect. She is cooperative with this writer producer and medication compliant. The patient is reminded that she is in a safe place, she exhibits understanding of this at the time of statement. S/I, H/I: Denies A/VH: Patient denies. Sleep: Patient retired to bed early. ADL's: Independent. Group attendance: No group on nights. Were meds taken: Yes, patient is medication compliant. Any med S/E: None reported, none observed. Mental Status Exam Appearance: Disheveled. Small amounts of dried blood on fingers, both hands. Eye contact: Direct. Behavior: Cooperative. Speech: Clear, soft, slow. Mood: Depressed. Affect: Blunted. Thought process: Circumstantial. Thought Content: Wants hand venetian blind cleaner and repairer for her elephantiasis in her throat. Cognition: Alert. Insight: Poor. Judgment: Poor. Interventions PRN's used: None Therapeutic interventions: Maintained a safe and therapeutic environment, ensured contract for safety, provided clear and simple instructions, monitored behavior and need for intervention, provided redirection/reassurance as needed, and maintained Q 15min safety checks. Restraints/seclusion/emergency medication: N/A Justification of Continued Inpatient Treatment: Per Dr. Toscano, pt. has had a recent exacerbation of psychotic s/s, and will be monitored on her current dose of medication which was increased. She remains GD, and will discharge per [facility] public guardian when housing is available
[2020-01-08 08:00] VITALS: BP 92/58
[2020-01-08] MEDS: nicotine 7mg patch - 24hr TD SCH (08:00)
[2020-01-08] MEDS: lithium carbonate 300mg SR tablet (LithoBID) PO SCH ×3 (08:15→20:12)
[2020-01-08] MEDS: docusate sod 100mg capsule PO SCH ×2 (08:15→20:06)
[2020-01-08] MEDS: levoTHYROXINE 25mcg tablet PO SCH (08:15)
[2020-01-08] MEDS: glycopyrrolate 1mg tablet PO SCH ×2 (08:16→20:06)
[2020-01-08] MEDS: nystatin 15 GM powder TP SCH ×3 (08:16→20:35)
[2020-01-08 09:40] VITALS: BP 130/85
[2020-01-08] MEDS: LORazepam 1 MG tablet PO PRN ×3 (10:34→16:27)
--- NOTE | 2020-01-08 12:30 | NUR ---
NURSING PROGRESS NOTE Legal hold: LPS Client on involuntary status for GD Report received from Cornell RN with use of SBAR Why are they here: The patient was AWOL at previous facility and began to decompensate. She is LPS conserved. She was cooperative with admission however quite paranoid. Stated on her trip up to [place] someone at a rest stop told her she was going to stay at this facility for 17 years, and kept asking staff if that was true? Responded well to redirection and reassurance. Assessment What has happened this shift: Up early this morning at change of shift. Medication compliant, cooperative and polite. Increased anxiety later in morning after roommate got discharged and the room was being cleaned, "she left and the room is being cleaned, my side too so should I leave too?" States she is "too happy" today and it "feels not right", "I need some medication so I'm not so happy." Denies hearing voices today but reports "a girl in my room talking to Melo." Given Ativan one dose and a repeat dose 45 mins later with good results. Cooperative and redirectable. S/I, H/I: Denies A/VH: VH Sleep: napped ADL's: Independent Group attendance: No Were meds taken: Yes Any med S/E: none reported, none observed Mental Status Exam Appearance: slightly disheveled, malodorous Eye contact: direct Behavior: Cooperative,calm Speech: Clear, soft, slow Mood: Depressed, Affect: blunted Thought process: circumstantial Thought Content: should she be discharging today Cognition: Alert Insight: Poor Judgment: Poor Interventions PRN's used: ativan x2 Therapeutic interventions: Maintained a safe and therapeutic environment, ensured contract for safety, provided clear and simple instructions, monitored behavior and need for intervention, provided redirection/reassurance as needed, and maintained Q 15min safety checks. Restraints/seclusion/emergency medication: N/A Justification of Continued Inpatient Treatment: Per Dr. Toscano, pt. has had a recent exacerbation of psychotic s/s, and will be monitored on her current dose of medication which was increased. She remains GD, and will discharge per [facility] public guardian when housing is available
[2020-01-08] MEDS: FERROUS SULFATE 142 MG TABLET.ER (45mg elemental) PO SCH ×2 (12:51→18:00)
--- NOTE | 2020-01-08 14:57 | NUR ---
8 OZ BOTTLE OF PURELL HAND SAND CAR WORKER WAS FOUND IN PATIENTS BATHROOM UP INSIDE THE PAPER TOWEL [place], THERE WAS ABOUT 1 OZ LEFT IN THE BOTTLE. PROVIDER AND CHARGE NURSE NOTIFIED.
[2020-01-08] MEDS: diphenhydrAMINE 25mg capsule PO PRN (15:43)
[2020-01-08] MEDS ORDERED: olanzapine 10mg tablet PO STA (16:30)
[2020-01-08] MEDS ORDERED: LORazepam 1 MG tablet PO STA (16:30)
--- NOTE | 2020-01-08 16:35 | NUR ---
AGITATION The patient became agitated, yelling, screaming obscenities and threatening staff when she was told she is on a line of sight for drinking and hiding hand slasher hand. This behavior required stat medications which she took by mouth, [id number], Benadryl 50mg, and Ativan 2mg. She was able to go down and sit in the hallway with a peer and staff.
[2020-01-08] MEDS ORDERED: OLANZapine **IM** 10 mg inj. IM PRN (19:00)
[2020-01-08] MEDS ORDERED: LORazepam 2 mg/ml vial IM PRN (19:00)
--- NOTE | 2020-01-08 19:03 | NUR ---
The patient comes to the nursing station, she demands to know who her nurse is? This singer songwriter identifies himself as the patients nurse. The patient is redirected back to her room. She has a sitter as she is a line of sight. The patient demands hand stitch cleaner to drink. The patient was informed that no hand stitch cleaner would be given to her to drink, the patient acknowledges this and verbalizes loudly you medicate me then. "I want Benadryl and Ativan." I want to be sedated and sleep! The patient will not expand on any other part of this interview.
[2020-01-08] MEDS ORDERED: diphenhydrAMINE 50 mg/ml inj IM ONE (19:30)
[2020-01-08 20:00] VITALS: BP 130/89
[2020-01-08] MEDS ORDERED: LORazepam 1 MG tablet PO ONE (20:05)
[2020-01-08] MEDS: CLOMIPRAMINE HCL 50 MG CAPSULE PO SCH (20:12)
--- NOTE | 2020-01-09 00:15 | NUR ---
NURSING PROGRESS NOTE Legal hold: LPS Client on involuntary status for GD Report received from BENI Michaud with use of SBAR Why are they here: The patient was AWOL at previous facility and began to decompensate. She is LPS conserved. She was cooperative with admission however quite paranoid. Stated on her trip up to [place] someone at a rest stop told her she was going to stay at this facility for 17 years, and kept asking staff if that was true? Responded well to redirection and reassurance. Assessment What has happened this shift: Following shift change patient approaches this promotion writer. Patient demands hand land economist to drink. Patient is upset this is not allowed. Patient has a sitter, 1:1 observation. On day shift patient required sedation. The patient looks to be responding to internal stimuli, agitation is present. The patient requests medication for anxiety and anger. Seroquel is given IM. Later followed by Benadryl and Ativan. The patient takes a shower, she presents as more rational and calm. Patient then goes to bed to sleep. S/I, H/I: Denies. A/VH: Denies. Internal stimuli is obvious. Sleep: Slept after sedation. ADL's: Independent. Group attendance: No Were meds taken: Yes, medication compliant. Any med S/E: None reported, none observed. Mental Status Exam Appearance: Disheveled. Eye contact: Direct. Behavior: Labile, angry at times, agitated. Speech: Clear, soft, slow. Mood: Depressed. Affect: Blunted. Thought process: Circumstantial. Thought Content: Fixated on getting hand land economist to drink. Cognition: Alert. Insight: Poor. Judgment: Poor. Interventions PRN's used: Zyprexa, Ativan, Benadryl. Therapeutic interventions: Maintained a safe and therapeutic environment, ensured contract for safety, provided clear and simple instructions, monitored behavior and need for intervention, provided redirection/reassurance as needed, and maintained Q 15min safety checks. Restraints/seclusion/emergency medication: N/A Justification of Continued Inpatient Treatment: Per Dr. Toscano, pt. has had a recent exacerbation of psychotic s/s, and will be monitored on her current dose of medication which was increased. She remains GD, and will discharge per [facility] public guardian when housing is available
[2020-01-09 07:41] VITALS: BP 121/82
[2020-01-09] MEDS: levoTHYROXINE 25mcg tablet PO SCH (07:53)
[2020-01-09] MEDS: LORazepam 1 MG tablet PO PRN ×2 (07:53→20:14)
[2020-01-09] MEDS: FERROUS SULFATE 142 MG TABLET.ER (45mg elemental) PO SCH ×3 (07:54→17:37)
[2020-01-09] MEDS: glycopyrrolate 1mg tablet PO SCH ×2 (07:54→20:17)
[2020-01-09] MEDS: docusate sod 100mg capsule PO SCH ×2 (07:54→20:13)
[2020-01-09] MEDS: lithium carbonate 300mg SR tablet (LithoBID) PO SCH ×3 (07:54→20:14)
[2020-01-09] MEDS: nystatin 15 GM powder TP SCH ×3 (07:54→21:12)
[2020-01-09] MEDS: NICOTINE POLACRILEX 2 MG LOZENGE BC PRN (07:54)
[2020-01-09] MEDS: nicotine 7mg patch - 24hr TD SCH (08:00)
--- NOTE | 2020-01-09 15:01 | NUR ---
NURSING PROGRESS NOTE Legal hold: LPS Client on involuntary status for GD Report received from Glenna jaimes RN with use of SBAR Why are they here: The patient was AWOL at previous facility and began to decompensate. She is LPS conserved. She was cooperative with admission however quite paranoid. Stated on her trip up to [place] someone at a rest stop told her she was going to stay at this facility for 17 years, and kept asking staff if that was true? Responded well to redirection and reassurance. Assessment What has happened this shift: Patient was up at change of shift and socializing with other clients. She took all of her medications as prescribed. She socialized with other clients. She went to sleep after eating breakfast and slept until lunch time. She is confused as to why she is on a line of site. Educated client that we are keeping her safe. She continues to try to seek out hand ham doctor. She was up for lunch. She ate well. She then sat with two other clients in the ni and did yoga and exercised. She asked to speak with a gasoline catalyst operator. I lt her know that they will be back through the week. Client is subdued and easily directable today. S/I, H/I: Denies A/VH: VH Sleep: napped ADL's: Independent Group attendance: No Were meds taken: Yes Any med S/E: none reported, none observed Mental Status Exam Appearance: slightly disheveled, wearing street clothes Eye contact: Fair Behavior: Cooperative, calm Speech: Clear, soft, slow Mood: Why are you watching me? Affect: blunted Thought process: circumstantial Thought Content: Concerned about diet and nutrition Cognition: Alert Insight: Poor Judgment: Poor Interventions PRN's used: Ativan Therapeutic interventions: Maintained a safe and therapeutic environment, ensured contract for safety, provided clear and simple instructions, monitored behavior and need for intervention, provided redirection/reassurance as needed, and maintained Q 15min safety checks. Restraints/seclusion/emergency medication: N/A Justification of Continued Inpatient Treatment: Per Dr. Toscano, pt. has had a recent exacerbation of psychotic s/s, and will be monitored on her current dose of medication which was increased. She remains GD, and will discharge per [facility] public guardian when housing is available
[2020-01-09 19:57] VITALS: BP 137/80
[2020-01-09] MEDS: traZODone 50mg tablet PO PRN (20:16)
[2020-01-09] MEDS: CLOMIPRAMINE HCL 50 MG CAPSULE PO SCH (20:16)
--- NOTE | 2020-01-09 23:17 | NUR ---
NURSING PROGRESS NOTE Legal hold: LPS Client on involuntary status for GD Report received from Dwayne jaimes RN with use of SBAR Why are they here: The patient was AWOL at previous facility and began to decompensate. She is LPS conserved. She was cooperative with admission however quite paranoid. Stated on her trip up to [place] someone at a rest stop told her she was going to stay at this facility for 17 years, and kept asking staff if that was true? Responded well to redirection and reassurance. Assessment What has happened this shift: Pt was up in ni at change of shift. She approached this newspaper writer and said that she wants her meds given in a injection. She stated that I just want to be put to sleep I cant have hand paramedic rn so I want to be put to sleep. line of site was removed Pt took her medication with some prompting after educating her that we dont give meds to sedate you just because you ask. S/I, H/I: Denies A/VH: VH Sleep: napped ADL's: Independent Group attendance: No Were meds taken: Yes Any med S/E: none reported, none observed Mental Status Exam Appearance: slightly disheveled, wearing street clothes Eye contact: Fair Behavior: Cooperative, calm Speech: Clear, soft, slow Mood: Why are you watching me? Affect: blunted Thought process: circumstantial Thought Content: Concerned about diet and nutrition Cognition: Alert Insight: Poor Judgment: Poor Interventions PRN's used: Ativan Therapeutic interventions: Maintained a safe and therapeutic environment, ensured contract for safety, provided clear and simple instructions, monitored behavior and need for intervention, provided redirection/reassurance as needed, and maintained Q 15min safety checks. Restraints/seclusion/emergency medication: N/A Justification of Continued Inpatient Treatment: Per Dr. Toscano, pt. has had a recent exacerbation of psychotic s/s, and will be monitored on her current dose of medication which was increased. She remains GD, and will discharge per [facility] public guardian when housing is available
[2020-01-10 07:39] VITALS: BP 100/62
[2020-01-10] MEDS: nystatin 15 GM powder TP SCH ×3 (08:00→21:00)
[2020-01-10] MEDS: nicotine 7mg patch - 24hr TD SCH (08:00)
[2020-01-10] MEDS: lithium carbonate 300mg SR tablet (LithoBID) PO SCH ×3 (08:16→20:37)
[2020-01-10] MEDS: glycopyrrolate 1mg tablet PO SCH ×2 (08:16→20:38)
[2020-01-10] MEDS: levoTHYROXINE 25mcg tablet PO SCH (08:17)
[2020-01-10] MEDS: FERROUS SULFATE 142 MG TABLET.ER (45mg elemental) PO SCH ×3 (08:17→17:47)
[2020-01-10] MEDS: docusate sod 100mg capsule PO SCH ×2 (08:17→20:38)
[2020-01-10] MEDS: LORazepam 1 MG tablet PO PRN ×2 (12:09→17:48)
[2020-01-10] MEDS: diphenhydrAMINE 25mg capsule PO PRN (15:35)
--- NOTE | 2020-01-10 15:47 | NUR ---
NURSING PROGRESS NOTE Legal hold: LPS Client on involuntary status for GD Report received from BENI Harkins with use of SBAR Why are they here: The patient was AWOL at previous facility and began to decompensate. She is LPS conserved. She was cooperative with admission however quite paranoid. Stated on her trip up to [place] someone at a rest stop told her she was going to stay at this facility for 17 years, and kept asking staff if that was true? Responded well to redirection and reassurance. Assessment What has happened this shift: Awake at change of shift. Wanted to change her sheets because she "got blood on them." Given new sheets and mattress cleaned. Stated she is " not bleeding now, just at night." Malodorous and disheveled. Wants staff to make her bed for her, but she was told she could do it on her own which she did. Slept after breakfast. At noon increased anxiety and describes visual hallucination, "my children are in my room, they came to visit me but I didn't want them to, and this lady with the hip replacement keeps bumping into me." Redirectable. S/I, H/I: Denies A/VH: VH and AH's Sleep: napped ADL's: Independent, needs encouragement Group attendance: No Were meds taken: Yes Any med S/E: none reported, none observed Mental Status Exam Appearance: disheveled Eye contact: Fair Behavior: Guarded Speech: Clear, soft, slow Mood: Suspicious Affect: guarded Thought process: circumstantial/ hallucinations Thought Content: Concerned about children/visitors Cognition: Alert Insight: Poor Judgment: Poor Interventions PRN's used: Ativan, Benadryl Therapeutic interventions: Maintained a safe and therapeutic environment, ensured contract for safety, provided clear and simple instructions, monitored behavior and need for intervention, provided redirection/reassurance as needed, and maintained Q 15min safety checks. Restraints/seclusion/emergency medication: N/A Justification of Continued Inpatient Treatment: Per Dr. Toscano, pt. has had a recent exacerbation of psychotic s/s, and will be monitored on her current dose of medication which was increased. She remains GD, and will discharge per [facility] public guardian when housing is available
[2020-01-10 20:22] VITALS: BP 129/88
[2020-01-10] MEDS: traZODone 50mg tablet PO PRN (20:38)
[2020-01-10] MEDS: CLOMIPRAMINE HCL 50 MG CAPSULE PO SCH (20:39)
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
[2020-01-11] MEDS: docusate sod 100mg capsule PO SCH ×2 (07:26→20:26)
[2020-01-11] MEDS: lithium carbonate 300mg SR tablet (LithoBID) PO SCH ×3 (07:27→20:26)
[2020-01-11] MEDS: glycopyrrolate 1mg tablet PO SCH ×2 (07:27→20:26)
[2020-01-11] MEDS: levoTHYROXINE 25mcg tablet PO SCH (07:27)
[2020-01-11] MEDS: FERROUS SULFATE 142 MG TABLET.ER (45mg elemental) PO SCH ×3 (07:27→17:55)
[2020-01-11] MEDS: nystatin 15 GM powder TP SCH ×3 (08:00→20:38)
[2020-01-11] MEDS: nicotine 7mg patch - 24hr TD SCH (08:00)
--- NOTE | 2020-01-11 08:44 | NUR ---
1:1-Individual CBT/Reality Testing Presenting Issues: Pt tearful, requesting support from SS. Interventions: SS met w/pt @ bedside, engaged pt in 1:1 individual psychotherapeutic interventions via CBT strategies to identify cause of distress, assess the relevancy & reality nature of pt's distress, identify an action/bxs pt can do in this moment to decrease the emotional severity of her distress. Per session, pt able to identify the source of her distress- delusional thoughts about someone in nursing home threatening to harm her when she is d/c from the hospital, pt also able to verbalize that this is not likely to happen "I'm in a safe place now, when I d/c I will continue to live in a safe place." Pt also able to verbalize that "maybe after a cup of coffee I will feel better." Pt also asked for updates on her placement situation, SS provided info re current status of placement efforts. SS also engaged pt in discussion re how pt can improve her prospect for placement w/re to her penchant for ingesting hand sanitizers. Pt acknowledged that such bxs makes it look like she is not ready to leave the hospital yet. Pt left session in a better mood, no longer tearful and appropriately asked a Clearing Distribution Clerk for coffee. Plan: [facility] & pt's delusional thought process is impacting her mood, SS to implement daily 1:1 to support pt's processing of emotional distress and engage in reality testing re pt's delusional thinking. Yeny Melendrez LCSW Addendum: 01/11/20 at 0900 by Yeny SAMAYOA Amended: Links added.
[2020-01-11 08:52] VITALS: BP 143/92
--- NOTE | 2020-01-11 10:40 | NUR ---
Nursing Note: Pt. c/o increased menstrual bleeding over the past four days. Dr. Sanz notified and obtained orders for CBC and urine test. Results pending at this time. Dr. Sanz reports that she will be in to see pt. this afternoon. Addendum: 01/11/20 at 1231 by Ysabel Maher RN Dr. Sanz in to see patient, she will start her on estrogen to be given at HS to reduce the bleeding. Also Vitamin C to be administered daily, first dose now. Dr. Sanz reports that CBC results appear stable. She will be back to check on pt. , 12/14/19.
[2020-01-11 11:00] LABS: URINE HCG NEGATIVE (NEG)
[2020-01-11 11:07] LABS: URINE AMPHETAMINE SCREEN NEGATIVE (Neg); URINE BARBITUATE SCREEN NEGATIVE (Neg); URINE BENZODIAZEPINES SCREEN NEGATIVE (Neg); URINE CANNABINOID SCREEN NEGATIVE (Neg); URINE COCAINE SCREEN NEGATIVE (Neg); URINE METHADONE SCREEN NEGATIVE (Neg); URINE OPIATE SCREEN NEGATIVE (Neg); URINE PHENCYCLIDINE SCREEN NEGATIVE (Neg)
[2020-01-11 11:35] LABS: BASOPHILS % (AUTO) 0.6 % (0-1); EOSINOPHILS # (AUTO) 0.2 X10'3 (0-0.9); EOSINOPHILS % (AUTO) 2.4 % (0-6); HEMATOCRIT 29.4 % (35.0-45.0); HEMOGLOBIN 9.3 g/dl (12.0-16.0); LYMPHOCYTES # (AUTO) 2.9 X10'3 (1.1-4.8); LYMPHOCYTES % (AUTO) 38.2 % (21-51); MEAN CORPUSCULAR HEMOGLOBIN 27.3 PG (27.0-31.0); MEAN CORPUSCULAR HGB CONC 31.7 g/dL (33.0-36.5); MEAN CORPUSCULAR VOLUME 86.1 FL (78-98); MEAN PLATELET VOLUME 8.1 FL (7.4-10.4); MONOCYTES # (AUTO) 0.6 X10'3 (0-0.9); MONOCYTES % (AUTO) 7.6 % (2-12); NEUTROPHILS # (AUTO) 3.8 X10'3 (1.8-7.7); NEUTROPHILS % (AUTO) 51.2 % (42-75); PLATELET COUNT 398 X10'3 (140-440); RED BLOOD COUNT 3.42 X10'6 (4.20-5.60); RED CELL DISTRIBUTION WIDTH 16.9 % (11.5-14.5); WHITE BLOOD COUNT 7.5 X10'3 (4.5-11.0)
[2020-01-11] MEDS ORDERED: ascorbic acid 500mg tablet PO ONE (12:30)
[2020-01-11] MEDS: estradiol 1mg tablet PO SCH (13:25)
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
[2020-01-11 19:56] VITALS: BP 133/88
[2020-01-11] MEDS: perphenazine 8mg tablets PO PRN (20:26)
[2020-01-11] MEDS: traZODone 50mg tablet PO PRN (20:26)
[2020-01-11] MEDS: CLOMIPRAMINE HCL 50 MG CAPSULE PO SCH (20:27)
--- NOTE | 2020-01-11 21:23 | NUR ---
Nursing Progress Note: Legal hold: LPS Client on involuntary status for GD Report received from nurse with use of SBAR: BENI Rice Why are they here: The patient was AWOL at previous facility and began to decompensate. She is LPS conserved. She was cooperative with admission however quite paranoid. Stated on her trip up to [place] someone at a rest stop told her she was going to stay at this facility for 17 years, and kept asking staff if that was true? Responded well to redirection and reassurance. Assessment What has happened this shift: Pt is quiet tonight, hanging out in the hallway before bed. She asks for hand supervisor electron tube processing and was told she could wash her hands instead. She states she likes to drink it because she drinks etoh on the streets. Told pt this isnt good and she replied "Oh my liver is fine, I do it all the time." Pt was given clean underwear, sanitary pad and tampons as she continues to have bleeding. She was assisted w/applying nystop to her inner thighs but they no longer appear to have redness, she states they are still sore for her. Pt is med compliant. Pt states someone told her she was leaving in an hour told her she is not leaving tonight. S/I, H/I: Denies A/VH: Denies, however appear internally preoccupied at times talks to herself Sleep: see sleep hours ADL's: Requires some redirection from staff Group attendance: No Were meds taken: Yes Any med S/E: None Mental Status Exam Appearance: Neat and appropriately dressed Eye contact: Fair Behavior: Cooperative, restless, anxious, guarded, and withdrawn Speech: Minimal, responds with minimal 1-2 word answers Mood: Guarded Affect: Flat Thought process: Circumstantial with disorganization Thought Content: Paranoid delusions and preoccupation with desire to discharge Cognition: A&O X4 Insight: Poor Judgment: Fair Interventions PRN's used: None Therapeutic interventions: Maintained a safe and therapeutic environment, ensured contract for safety, provided clear and simple instructions, monitored behavior and need for intervention, provided redirection/reassurance as needed, contacted Dr. Sanz and obtained order for Estrace r/t continued menstrual bleeding, and maintained Q 15min safety checks. Restraints/seclusion/emergency medication: N/A Justification of Continued Inpatient Treatment: Pt. continues to require a safe and supportive environment while she awaits placement.
[2020-01-12] MEDS: docusate sod 100mg capsule PO SCH ×2 (07:25→20:15)
[2020-01-12] MEDS: lithium carbonate 300mg SR tablet (LithoBID) PO SCH ×3 (07:26→20:15)
[2020-01-12] MEDS: glycopyrrolate 1mg tablet PO SCH ×2 (07:26→20:15)
[2020-01-12] MEDS: FERROUS SULFATE 142 MG TABLET.ER (45mg elemental) PO SCH ×3 (07:26→17:53)
[2020-01-12] MEDS: levoTHYROXINE 25mcg tablet PO SCH (07:26)
[2020-01-12] MEDS: perphenazine 8mg tablets PO PRN (07:26)
[2020-01-12] MEDS: ascorbic acid 500mg tablet PO SCH (07:28)
[2020-01-12 08:00] VITALS: BP 103/60
[2020-01-12] MEDS: nicotine 7mg patch - 24hr TD SCH (08:00)
[2020-01-12] MEDS: nystatin 15 GM powder TP SCH ×3 (08:25→20:16)
[2020-01-12] MEDS: estradiol 1mg tablet PO SCH ×2 (09:58)
[2020-01-12] MEDS: LORazepam 1 MG tablet PO PRN (12:27)
[2020-01-12] MEDS: NICOTINE POLACRILEX 2 MG LOZENGE BC PRN (16:20)
--- NOTE | 2020-01-12 16:48 | NUR ---
Nursing Progress Note: Legal hold: LPS Client on involuntary status for GD Report received from nurse with use of SBAR: BENI Hernandez Why are they here: The patient was AWOL at previous facility and began to decompensate. She is LPS conserved. She was cooperative with admission however quite paranoid. Stated on her trip up to [place] someone at a rest stop told her she was going to stay at this facility for 17 years, and kept asking staff if that was true? Responded well to redirection and reassurance. Assessment What has happened this shift: Received pt. sleeping in bed at the beginning of the shift, she awoke for breakfast and was cooperative with all medications. 1:1 completed at bedside, pt.continues to deny all M/H s/s, and reports she is having a better day today with less anxiety and agitation. She attends outside patio time with others and appears to be interacting appropriately. No s/s of internal stimuli or inappropriate laughter exhibited as seen on this parts data writer's previous shift. However, pt. continues to make occasional delusional statements, states, "I have been hearing someone tell me that at I leaving today to the [place] [facility] at two o'clock today, should I still eat?" This parts data writer was able to effectively redirect pt., and PRN Ativan provided with effectiveness. Pt. continues to have a moderate amount of menstrual bleeding, requiring the utilization of tampons and several underwear changes throughout the shift. Continued to administer Estrace per orders from Dr. Sanz, and Dr. Sanz will be in to re-check pt. tomorrow. Attempted to clarify with Dr. Sanz if Estrace was to be administered at HS or daily as ordered, however unable to reach, will endorse to Noc shift. S/I, H/I: Denies A/VH: Denies, did not appear to be internally preoccupied Sleep: Pt. reports she slept restlessly and awoke multiple times, sleep hours are 9.5 ADL's: Requires some redirection from staff Group attendance: Attended patio Were meds taken: Yes Any med S/E: None Mental Status Exam Appearance: Neat and appropriately dressed Eye contact: Fair Behavior: Cooperative, slightly restless, and guarded Speech: Minimal, responds with minimal 1-2 word answers Mood: Guarded Affect: Flat Thought process: Circumstantial Thought Content: Paranoid delusions and preoccupation with desire to discharge Cognition: A&O X4 Insight: Poor Judgment: Fair Interventions PRN's used: Ativan Therapeutic interventions: Maintained a safe and therapeutic environment, ensured contract for safety, provided clear and simple instructions, monitored behavior and need for intervention, provided redirection/reassurance as needed encouraged participation on the unit, and maintained Q 15min safety checks. Restraints/seclusion/emergency medication: N/A Justification of Continued Inpatient Treatment: Pt. continues to require a safe and supportive environment while she awaits placement.
[2020-01-12 19:39] VITALS: BP 107/57
[2020-01-12] MEDS: traZODone 50mg tablet PO PRN (20:15)
[2020-01-12] MEDS: CLOMIPRAMINE HCL 50 MG CAPSULE PO SCH (20:15)
[2020-01-12] MEDS: diphenhydrAMINE 25mg capsule PO PRN (20:18)
--- NOTE | 2020-01-12 21:52 | NUR ---
Nursing Progress Note: Legal hold: LPS Client on involuntary status for GD Report received from nurse with use of SBAR: BENI Cordova Why are they here: The patient was AWOL at previous facility and began to decompensate. She is LPS conserved. She was cooperative with admission however quite paranoid. Stated on her trip up to [place] someone at a rest stop told her she was going to stay at this facility for 17 years, and kept asking staff if that was true? Responded well to redirection and reassurance. Assessment What has happened this shift: Pt was in the hallway at change of shift, requesting underwear and tampons, both were provided. Pt declined a shower. Pt complains of soreness between her thighs, "because of the wetness" discussed changing her pants and underwear and showering and keeping clean and dry. Provided patient with wash cloths, underwear and tampons. Nystop powder was applied. Pt reports feeling anxious and asks if she can have benadryl with her evening meds because trazadone helps her fall asleep but then she wakes up a lot and think the benadryl helps with that. Pt states she thinks her night meds "wire her out". Pt fell asleep for a short time after evening meds, up and requested water and went back to bed. S/I, H/I: Denies A/VH: Denies Sleep: Pt. reports she wakes often during the night and doesn't stay asleep. see sleep hours ADL's: Requires some redirection from staff Group attendance: no evening groups Were meds taken: Yes Any med S/E: None Mental Status Exam Appearance: Neat and wearing black sweat pants and sweat shirt. Eye contact: Fair Behavior: Cooperative, quiet, staying in bed. Speech: Minimal, responds with minimal 1-2 word answers Mood: Guarded Affect: Flat Thought process: Circumstantial Thought Content: Paranoid delusions and preoccupation with desire to discharge Cognition: A&O X4 Insight: Poor Judgment: Fair Interventions PRN's used: benadryl Therapeutic interventions: Maintained a safe and therapeutic environment, ensured contract for safety, provided clear and simple instructions, monitored behavior and need for intervention, provided redirection/reassurance as needed encouraged participation on the unit, and maintained Q 15min safety checks. Restraints/seclusion/emergency medication: N/A Justification of Continued Inpatient Treatment: Pt. continues to require a safe and supportive environment while she awaits placement.
[2020-01-13 07:45] VITALS: BP 111/69
[2020-01-13] MEDS: levoTHYROXINE 25mcg tablet PO SCH (08:01)
[2020-01-13] MEDS: lithium carbonate 300mg SR tablet (LithoBID) PO SCH ×3 (08:01→22:09)
[2020-01-13] MEDS: docusate sod 100mg capsule PO SCH ×2 (08:01→22:14)
[2020-01-13] MEDS: ascorbic acid 500mg tablet PO SCH (08:01)
[2020-01-13] MEDS: estradiol 1mg tablet PO SCH ×2 (08:02)
[2020-01-13] MEDS: glycopyrrolate 1mg tablet PO SCH ×2 (08:02→22:09)
[2020-01-13] MEDS: FERROUS SULFATE 142 MG TABLET.ER (45mg elemental) PO SCH ×3 (08:03→18:30)
[2020-01-13] MEDS: nystatin 15 GM powder TP SCH ×3 (08:03→22:10)
[2020-01-13] MEDS: nicotine 7mg patch - 24hr TD SCH (08:03)
--- NOTE | 2020-01-13 09:50 | NUR ---
Reassessment: Pt continues with 75-100% PO intake with the exception of refusing two meals in the last week, still meeting nutrient needs. LBM 01/11. No nutrition intervention warranted at this time. Will continue to follow. Recommendations: 1) Continue heart healthy diet 2) Salad and fruit BIDLD per diet order 3) Routine bowel care 4) Scaled wts per rx Addendum: 01/13/20 at [address] Amended: Links added.
--- NOTE | 2020-01-13 11:16 | NUR ---
Nursing Progress Note: Legal hold: LPS Client on involuntary status for GD Report received from nurse with use of SBAR: BENI Hernandez Why are they here: The patient was AWOL at previous facility and began to decompensate. She is LPS conserved. She was cooperative with admission however quite paranoid. Stated on her trip up to [place] someone at a rest stop told her she was going to stay at this facility for 17 years, and kept asking staff if that was true? Responded well to redirection and reassurance. Assessment What has happened this shift: Patient is resting in bed peacefully at change of shift. She eats her meals in the group room. She does not attend group however, attends outside patio time with others and appears to be interacting appropriately. No s/s of internal stimuli or inappropriate laughter exhibited this shift. However, pt. continues to make occasional delusional statements, states, "They are telling me in the office that I am leaving today. They are messing with me. I will take down this place like all the other places because I have that authority." Redirected patient and offered coffee. Pt. continues to have a moderate amount of menstrual bleeding, requiring several underwear changes throughout the shift. S/I, H/I: Denies A/VH: Denies, did not appear to be internally preoccupied Sleep: up majority of the shift ADL's: Requires some prompting/encouragement and redirection from staff Group attendance: Attended patio Were meds taken: Yes Any med S/E: None Mental Status Exam Appearance: Neat and appropriately dressed Eye contact: Fair Behavior: Cooperative, slightly restless, and guarded Speech: Minimal, responds with minimal 1-2 word answers Mood: Guarded Affect: Flat with intermittent brightening Thought process: Circumstantial Thought Content: Paranoid delusions and preoccupation with desire to discharge and that staff is "messing with me". Cognition: A&O X4 Insight: Poor Judgment: Fair Interventions PRN's used: Therapeutic interventions: Maintained a safe and therapeutic environment, ensured contract for safety, provided clear and simple instructions, monitored behavior and need for intervention, provided redirection/reassurance as needed encouraged participation on the unit, and maintained Q 15min safety checks. Restraints/seclusion/emergency medication: N/A Justification of Continued Inpatient Treatment: Pt. continues to require a safe and supportive environment while she awaits placement.
[2020-01-13] MEDS: traZODone 50mg tablet PO PRN (22:02)
[2020-01-13] MEDS: CLOMIPRAMINE HCL 50 MG CAPSULE PO SCH (22:09)
--- NOTE | 2020-01-14 01:42 | NUR ---
Nursing Progress Note: Legal hold: LPS Client on involuntary status for GD Report received from BENI Tesfaye with use of SBAR: BENI Hernandez Why are they here: The patient was AWOL at previous facility and began to decompensate. She is LPS conserved. She was cooperative with admission however quite paranoid. Stated on her trip up to [place] someone at a rest stop told her she was going to stay at this facility for 17 years, and kept asking staff if that was true? Responded well to redirection and reassurance. Assessment What has happened this shift: This patient isolated in her room save for meals and snacks. The patient tells this telegraphic typewriter mechanic her vaginal bleeding is minimal now. She reports only a small saturation one tampon. The patient converses well. "I'm feeling pretty good." Patient denies any hallucinations. She is compliant with her medications. Patient does not present with any internal stimuli tonight. S/I, H/I: Denies. A/VH: Denies, did not appear to be internally preoccupied. Sleep: Patient sleeps following dinner. Will tally hours at 0500. ADL's: Requires some prompting/encouragement and redirection from staff. Group attendance: No group on manager night. Were meds taken: Yes, patient is medication compliant. Any med S/E: None Mental Status Exam Appearance: Neat and appropriately dressed. Eye contact: Direct. Behavior: Cooperative, well mannered. Speech: Quiet, normal rhythm and tone. Mood: Guarded. Affect: Flat with intermittent brightening. Thought process: Circumstantial Thought Content: "I'm feeling pretty good." Cognition: A&O X4. Insight: Poor. Judgment: Fair Interventions PRN's used: Therapeutic interventions: Maintained a safe and therapeutic environment, ensured contract for safety, provided clear and simple instructions, monitored behavior and need for intervention, provided redirection/reassurance as needed encouraged participation on the unit, and maintained Q 15min safety checks. Restraints/seclusion/emergency medication: N/A Justification of Continued Inpatient Treatment: Pt. continues to require a safe and supportive environment while she awaits placement.
[2020-01-14] MEDS ORDERED: levoTHYROXINE 25mcg tablet PO SCH (07:00)
[2020-01-14 08:00] VITALS: BP 127/75
[2020-01-14] MEDS: nicotine 7mg patch - 24hr TD SCH (08:00)
[2020-01-14] MEDS: nystatin 15 GM powder TP SCH ×3 (08:00→20:25)
[2020-01-14] MEDS: estradiol 1mg tablet PO SCH ×2 (08:19)
[2020-01-14] MEDS: glycopyrrolate 1mg tablet PO SCH ×2 (08:20→20:25)
[2020-01-14] MEDS: lithium carbonate 300mg SR tablet (LithoBID) PO SCH ×3 (08:20→21:18)
[2020-01-14] MEDS: FERROUS SULFATE 142 MG TABLET.ER (45mg elemental) PO SCH ×3 (08:20→17:47)
[2020-01-14] MEDS: docusate sod 100mg capsule PO SCH ×2 (08:20→20:25)
[2020-01-14] MEDS: ascorbic acid 500mg tablet PO SCH (08:21)
[2020-01-14] MEDS: LORazepam 1 MG tablet PO PRN ×2 (09:14→10:11)
[2020-01-14] MEDS ORDERED: OLANZapine 5mg rapidly disint. tablet PO ONE (10:25)
[2020-01-14] MEDS ORDERED: olanzapine 10mg tablet PO PRN (13:15)
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
[2020-01-14] MEDS ORDERED: OLANZAPINE 5 MG TABLET PO PRN (17:35)
[2020-01-14 19:49] VITALS: BP 102/65
[2020-01-14] MEDS: CLOMIPRAMINE HCL 50 MG CAPSULE PO SCH (20:25)
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
[2020-01-15] MEDS: levoTHYROXINE 25mcg tablet PO SCH (07:53)
[2020-01-15] MEDS: estradiol 1mg tablet PO SCH ×3 (07:54→20:24)
[2020-01-15] MEDS: ascorbic acid 500mg tablet PO SCH (07:54)
[2020-01-15] MEDS: docusate sod 100mg capsule PO SCH ×2 (07:54→20:25)
[2020-01-15] MEDS: lithium carbonate 300mg SR tablet (LithoBID) PO SCH ×3 (07:54→20:25)
[2020-01-15] MEDS: FERROUS SULFATE 142 MG TABLET.ER (45mg elemental) PO SCH ×3 (07:54→17:46)
[2020-01-15] MEDS: glycopyrrolate 1mg tablet PO SCH ×2 (07:55→20:24)
[2020-01-15] MEDS: nicotine 7mg patch - 24hr TD SCH (08:00)
[2020-01-15 08:26] LABS: RED BLOOD COUNT 3.52 X10'6 (4.20-5.60); RETICULOCYTE % (AUTO) 4.5 % (0.5-1.5)
[2020-01-15] MEDS: nystatin 15 GM powder TP SCH ×3 (08:58→20:55)
[2020-01-15 09:00] LABS: % IRON SATURATION 7 % (11-46); IRON 24 UG/DL (49-151); TOTAL IRON BINDING CAPACITY 349 UG/DL (259-388)
[2020-01-15] MEDS ORDERED: olanzapine 10mg tablet PO PRN (10:15)
[2020-01-15] MEDS: OLANZapine 5mg rapidly disint. tablet PO PRN (11:03)
--- NOTE | 2020-01-15 12:56 | NUR ---
NURSING PROGRESS NOTE Legal hold: LPS Client on involuntary status for GD Report received from BENI Escamilla with use of SBAR Why are they here: The patient was AWOL at previous facility and began to decompensate. She is LPS conserved. She was cooperative with admission however quite paranoid. Stated on her trip up to [place] someone at a rest stop told her she was going to stay at this facility for 17 years, and kept asking staff if that was true? Responded well to redirection and reassurance. Assessment What has happened this shift: Awake at shift change sitting in chair, disheveled. Stated the "Zyprexa I got last night did not help at all because it was not the kind that dissolved in my mouth." Became agitated this morning when she was not allowed to have hand hole digger operator. Refused to take the regular Zyprexa. AZEB Edmond was notified, order changed to Zydis, patient took medications. Agitation resolved and patient was able to take a shower, dress in clean clothes and fix her hair nicely. She was then smiling and happy, had iced coffee and interacted appropriately with staff. S/I, H/I: Denies A/VH: VH's Sleep: napped ADL's: showered and clean clothes Group attendance: Attended patio Were meds taken: Yes Any med S/E: None Mental Status Exam Appearance: Clean and neat Eye contact: good, direct Behavior: Cooperative, at times guarded Speech: clear Mood: "Good" Affect: smiling Thought process: Circumstantial Thought Content: getting needs met/coffee Cognition: Alert Insight: Poor Judgment: poor Interventions PRN's used: Zyprexa Zydis Therapeutic interventions: Maintained a safe and therapeutic environment, ensured contract for safety, provided clear and simple instructions, monitored behavior and need for intervention, provided redirection/reassurance as needed encouraged participation on the unit, and maintained Q 15min safety checks. Restraints/seclusion/emergency medication: N/A Justification of Continued Inpatient Treatment: Pt. continues to require a safe and supportive environment while she awaits placement.
[2020-01-15] MEDS: diphenhydrAMINE 25mg capsule PO PRN (15:37)
[2020-01-15] MEDS: LORazepam 1 MG tablet PO PRN (16:48)
[2020-01-15] MEDS: acetaminophen 325mg tablet PO PRN (18:50)
[2020-01-15] MEDS: CLOMIPRAMINE HCL 50 MG CAPSULE PO SCH (20:23)
[2020-01-15] MEDS ORDERED: OLANZapine 5mg rapidly disint. tablet PO SCH (21:00)
--- NOTE | 2020-01-16 00:05 | NUR ---
NURSING PROGRESS NOTE Legal hold: LPS Client on involuntary status for GD Report received from BENI Tesfaye with use of SBAR Why are they here: The patient was AWOL at previous facility and began to decompensate. She is LPS conserved. She was cooperative with admission however quite paranoid. Stated on her trip up to [place] someone at a rest stop told her she was going to stay at this facility for 17 years, and kept asking staff if that was true? Responded well to redirection and reassurance. Assessment What has happened this shift: Patient was awake and pacing in the ni talking to her self, asking for hand river driver, and food. Pt was reminded about why she is not getting river driver and stated I just need a little I want to feel the buzz. She was med compliant and redirectable. Pt stayed up for the [employer] works then went to bed. S/I, H/I: Denies A/VH: Hearing voices and responding to internal stimuli. Sleep: napped ADL's: showered and clean clothes Group attendance: Attended patio Were meds taken: Yes Any med S/E: None Mental Status Exam Appearance: Clean and neat Eye contact: good, direct Behavior: Cooperative, at times guarded Speech: clear Mood: "Good" Affect: smiling Thought process: Circumstantial Thought Content: getting needs met/coffee Cognition: Alert Insight: Poor Judgment: poor Interventions PRN's used: Tylenol Therapeutic interventions: Maintained a safe and therapeutic environment, ensured contract for safety, provided clear and simple instructions, monitored behavior and need for intervention, provided redirection/reassurance as needed encouraged participation on the unit, and maintained Q 15min safety checks. Restraints/seclusion/emergency medication: N/A Justification of Continued Inpatient Treatment: Pt. continues to require a safe and supportive environment while she awaits placement.
[2020-01-16 08:00] VITALS: BP 118/87
[2020-01-16] MEDS: levoTHYROXINE 25mcg tablet PO SCH (08:05)
[2020-01-16] MEDS: ascorbic acid 500mg tablet PO SCH (08:07)
[2020-01-16] MEDS: FERROUS SULFATE 142 MG TABLET.ER (45mg elemental) PO SCH ×3 (08:07→17:42)
[2020-01-16] MEDS: glycopyrrolate 1mg tablet PO SCH ×2 (08:07→21:38)
[2020-01-16] MEDS: nicotine 7mg patch - 24hr TD SCH (08:08)
[2020-01-16] MEDS: docusate sod 100mg capsule PO SCH ×2 (08:08→21:43)
[2020-01-16] MEDS: lithium carbonate 300mg SR tablet (LithoBID) PO SCH ×3 (08:08→21:39)
[2020-01-16] MEDS: nystatin 15 GM powder TP SCH ×3 (08:09→21:00)
[2020-01-16] MEDS: LORazepam 1 MG tablet PO PRN (16:22)
[2020-01-16] MEDS: OLANZapine 5mg rapidly disint. tablet PO PRN (16:22)
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
[2020-01-16] MEDS ORDERED: OLANZapine 5mg rapidly disint. tablet PO ONE (19:10)
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
[2020-01-16 20:00] VITALS: BP 133/92
[2020-01-16] MEDS: CLOMIPRAMINE HCL 50 MG CAPSULE PO SCH (21:34)
[2020-01-16] MEDS: estradiol 1mg tablet PO SCH (21:35)
[2020-01-16] MEDS: traZODone 50mg tablet PO PRN (21:36)
--- NOTE | 2020-01-16 23:53 | NUR ---
NURSING PROGRESS NOTE Legal hold: LPS Client on involuntary status for GD Report received from BENI Tesfaye with use of SBAR Why are they here: The patient was AWOL at previous facility and began to decompensate. She is LPS conserved. She was cooperative with admission however quite paranoid. Stated on her trip up to [place] someone at a rest stop told her she was going to stay at this facility for 17 years, and kept asking staff if that was true? Responded well to redirection and reassurance. Assessment What has happened this shift: Patient paces hallways. Patient approached this bond underwriter early in shift demanding hand printing press operator apprentice. This bond underwriter advises patient can't have any because she drinks it. Patient exhibits frustration and anger. Later this patient accuses this bond underwriter of steeling her medication and giving it to another patient. Patient was give Zyprexa and Ativan which decreased patients agitation and paranoia. Patient remains delusional. Patient is compliant with all medications. Patient ate a dinner. Patient then retired to her room to sleep. S/I, H/I: Denies. A/VH: Internal Stimuli. Sleep: Will tally in am. ADL's: With some direction. 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 Were meds taken: Yes, patient is medication compliant. Any med S/E: None. Mental Status Exam Appearance: Clean and neat. Eye contact: Direct. Behavior: Intrusive, paranoid. Speech: Soft speech. Mood: Agitated, angry. Affect: Flat. Thought process: Circumstantial. Thought Content: Paranoid and suspicious. Cognition: Alert. Insight: Poor Judgment: poor Interventions PRN's used: Ativan and Seroquel, Trazadone. Therapeutic interventions: Maintained a safe and therapeutic environment, ensured contract for safety, provided clear and simple instructions, monitored behavior and need for intervention, provided redirection/reassurance as needed encouraged participation on the unit, and maintained Q 15min safety checks. Restraints/seclusion/emergency medication: N/A Justification of Continued Inpatient Treatment: Pt. continues to require a safe and supportive environment while she awaits placement.
[2020-01-17] MEDS: levoTHYROXINE 25mcg tablet PO SCH (07:26)
[2020-01-17] MEDS: LORazepam 1 MG tablet PO PRN ×2 (07:27→21:48)
[2020-01-17] MEDS: ascorbic acid 500mg tablet PO SCH (07:27)
[2020-01-17] MEDS: nicotine 7mg patch - 24hr TD SCH (07:27)
[2020-01-17] MEDS: lithium carbonate 300mg SR tablet (LithoBID) PO SCH ×3 (07:27→20:06)
[2020-01-17] MEDS: FERROUS SULFATE 142 MG TABLET.ER (45mg elemental) PO SCH ×3 (07:27→17:05)
[2020-01-17] MEDS: nystatin 15 GM powder TP SCH ×2 (07:28→12:57)
[2020-01-17] MEDS: docusate sod 100mg capsule PO SCH ×2 (07:28→20:05)
[2020-01-17] MEDS: glycopyrrolate 1mg tablet PO SCH ×2 (07:38→20:06)
[2020-01-17 07:53] VITALS: BP 130/76
[2020-01-17] MEDS: OLANZapine 5mg rapidly disint. tablet PO PRN (12:38)
--- NOTE | 2020-01-17 12:58 | NUR ---
NURSING PROGRESS NOTE Legal hold: LPS Client on involuntary status for GD Report received from RICKIE Rice with use of SBAR Why they are here: The patient was AWOL at previous facility and began to decompensate. She is LPS conserved. She was cooperative with admission however quite paranoid. Stated on her trip up to [place] someone at a rest stop told her she was going to stay at this facility for 17 years, and kept asking staff if that was true. Assessment What has happened this shift: Patient is seen in the day room, watching television at change of shift. She is requesting medication right away at change of shift and hand bioinformatics support specialist. RN reinforced no hand bioinformatics support specialist and asked patient why she wants hand bioinformatics support specialist. She states that she drinks a little alcohol outside of here and the hand bioinformatics support specialist helps calm her down. Reinforced that she will not get any hand bioinformatics support specialist. PRN ativan was given. She is pleasant and cooperative with care and takes her medications. She asks for hand bioinformatics support specialist again after breakfast and PRN Zyprexa is given for some agitation. She is seen sitting in her room, ambulating in the ni and socializing with peers appropriately. Denies SI/HI, states that she is hearing people yelling at her from "outside". She goes to the patio however, does not participate in group. S/I, H/I: Denies A/VH: +AH Sleep: up the majority of the shift ADL's: Independent Group attendance: no, [facility] Were meds taken: Yes Any med S/E: None Mental Status Exam Appearance: Disheveled, personal clothing Eye contact: Direct Behavior: Anxious, obsessive Speech: WNL, normal rate and rhythm Mood: Paranoid, anxious Affect: Flat, blunted Thought process: Circumstantial Thought Content: Hand bioinformatics support specialist Cognition: AxOx3 Insight: Poor Judgment: poor Interventions PRN's used: Ativan, Zyprexa Therapeutic interventions: Maintained a safe and therapeutic environment, ensured contract for safety, provided clear and simple instructions, monitored behavior and need for intervention, provided redirection/reassurance as needed encouraged participation on the unit, and maintained Q 15min safety checks. Restraints/seclusion/emergency medication: N/A Justification of Continued Inpatient Treatment: Pt. continues to require a safe and supportive environment while she awaits placement. Addendum: 01/17/20 at 1737 by Tabatha Addison RN Patient refused to use the nystatin powder today as she states that it is ineffective in relieving her symptoms from her bilateral upper thigh rash. Patient requests an ointment or cream instead. notified.
[2020-01-17] MEDS: mag hydrox/Alum hydrox/simeth 30ml oral suspension PO PRN (17:20)
[2020-01-17] MEDS: NYSTATIN CREAM - 30GM TUBE TP SCH (18:57)
[2020-01-17] MEDS: CLOMIPRAMINE HCL 50 MG CAPSULE PO SCH (20:05)
[2020-01-17] MEDS: estradiol 1mg tablet PO SCH (20:08)
[2020-01-17 20:36] VITALS: BP 134/93
[2020-01-17] MEDS: traZODone 50mg tablet PO PRN ×2 (21:50→22:21)
--- NOTE | 2020-01-18 00:46 | NUR ---
NURSING PROGRESS NOTE Legal hold: LPS Client on involuntary status for GD Report received from RICKIE Rice with use of SBAR Why they are here: The patient was AWOL at previous facility and began to decompensate. She is LPS conserved. She was cooperative with admission however quite paranoid. Stated on her trip up to [place] someone at a rest stop told her she was going to stay at this facility for 17 years, and kept asking staff if that was true. Assessment What has happened this shift: Pt up on unit at start of shift. Requested "cream that Doctor ordered" for aurea area rash. Nystatin cream applied to red excoriated uper thighs and aurea area. Pt not allowed to self administer because of her history of eating hand lacrosse player and other substances. Pt was cooperative. Pt explained that she eats hand lacrosse player because she has a "tickle in her throat" that it relieves. Per pt the only other thing that works is whiskey. Pt said she had a good day she spoke to her mom and her conservator. Pt was pleasant and cooperative took all HS meds. Pt became agitated in the evening. She became convinced that people in the nurses station kept saying she was going to leave tonight, she can hear them telepathically. Then when she asked about it they said no she's not leaving. Pt given Ativan prn agitation and Trazodone x2 for sleep. Given hot tea and 1:1 pt talked about her plan to get a hotel at discharge, that her mom has a restraining order against her, she was able to calm self and go to sleep sleeping at this time. S/I, H/I: Denies A/VH: +AH Sleep: Sleeping at this time ADL's: Independent Group attendance: NA Were meds taken: Yes Any med S/E: None Mental Status Exam Appearance: Disheveled, personal clothing Eye contact: Direct Behavior: Anxious, obsessive Speech: WNL, normal rate and rhythm Mood: Paranoid, anxious Affect: Flat, blunted Thought process: Circumstantial Thought Content: Hotel at discharge Cognition: AxOx3 Insight: Poor Judgment: poor Interventions PRN's used: Ativan, Trazodone, Ativan Therapeutic interventions: Maintained a safe and therapeutic environment, ensured contract for safety, provided clear and simple instructions, monitored behavior and need for intervention, provided redirection/reassurance as needed encouraged participation on the unit, and maintained Q 15min safety checks. Restraints/seclusion/emergency medication: N/A Justification of Continued Inpatient Treatment: Pt. continues to require a safe and supportive environment while she awaits placement.
[2020-01-18] MEDS: levoTHYROXINE 25mcg tablet PO SCH (07:23)
[2020-01-18] MEDS: lithium carbonate 300mg SR tablet (LithoBID) PO SCH ×3 (07:24→20:20)
[2020-01-18] MEDS: FERROUS SULFATE 142 MG TABLET.ER (45mg elemental) PO SCH ×3 (07:24→17:30)
[2020-01-18] MEDS: docusate sod 100mg capsule PO SCH ×2 (07:24→20:19)
[2020-01-18] MEDS: glycopyrrolate 1mg tablet PO SCH ×2 (07:24→20:19)
[2020-01-18] MEDS: ascorbic acid 500mg tablet PO SCH (07:24)
[2020-01-18 07:37] VITALS: BP 104/73
[2020-01-18] MEDS: NYSTATIN CREAM - 30GM TUBE TP SCH ×2 (08:29→20:20)
[2020-01-18] MEDS: nicotine 7mg patch - 24hr TD SCH (08:43)
--- NOTE | 2020-01-18 11:56 | NUR ---
Nursing Note: Pt. reported feeling "shaky" like she had low blood sugar. BS obtained and was 72, juice and a carbohydrate snack provided. Will continue to monitor. Addendum: 01/18/20 at 1221 by Ysabel Maher RN BS rechecked w/in 15 minutes after pt. consumed snack and was 144, will continue to monitor.
[2020-01-18] MEDS: NICOTINE POLACRILEX 2 MG LOZENGE BC PRN (14:12)
[2020-01-18] MEDS: LORazepam 1 MG tablet PO PRN (14:12)
--- NOTE | 2020-01-18 16:16 | NUR ---
Nursing Progress Note: Legal hold: LPS Client on involuntary status for GD Report received from nurse with use of SBAR: BENI Hernandez Why are they here: The patient was AWOL at previous facility and began to decompensate. She is LPS conserved. She was cooperative with admission however quite paranoid. Stated on her trip up to [place] someone at a rest stop told her she was going to stay at this facility for 17 years, and kept asking staff if that was true? Responded well to redirection and reassurance. Assessment What has happened this shift: Received pt. sleeping in bed at the beginning of the shift, she awoke for breakfast and remained up throughout the day. 1:1 completed at bedside, pt. continues to deny all M/H s/s, however continues to present with paranoid delusional thoughts that others are telling her she's leaving. Pt. states, "They have been telling me that for eight days now." She also exhibits some restlessness/anxiety throughout the shift r/t upcoming court today, pt. reports that she has a letter prepared to read to the public relations specialist regarding her plan to care for herself independently. This plan includes living at the [facility] [employer] and ordering pizza which she can eat for a while. Pt. was able to attend outside patio time with others, however became more and more anxious throughout the day r/t court. She began to make more bizarre delusional statements including believing that there is a man on the unit who is stealing her eyes, however she refuses the need for a PRN anxiolytic. Later in the shift, pt's public guardian was called and notified staff that pt. did not have to be at the court hearing scheduled for today. This information was relayed to pt. who initially was very agitated r/t believing staff was withholding her from court. However, she then was able to call her conservator and confirm this information. Pt. accepted PRN Ativan, administered with effectiveness. S/I, H/I: Denies A/VH: Denies, did not appear to be internally preoccupied Sleep: Pt. reports her sleep was restless, sleep hours are 3.5 ADL's: Requires some redirection from staff Group attendance: Attended patio Were meds taken: Yes Any med S/E: None Mental Status Exam Appearance: Neat and appropriately dressed Eye contact: Fair Behavior: Cooperative, anxious, restless, and agitated at times Speech: WNL Mood: Restless and agitated at times Affect: Labile Thought process: Circumstantial Thought Content: Paranoid delusions and preoccupation with desire to discharge Cognition: A&O X4 Insight: Poor Judgment: Fair Interventions PRN's used: Ativan and Nicotine Lozenge Therapeutic interventions: Maintained a safe and therapeutic environment, ensured contract for safety, provided clear and simple instructions, monitored behavior and need for intervention, provided redirection/reassurance as needed, clarified need for court attendance and relayed information to patient, and maintained Q 15min safety checks. Restraints/seclusion/emergency medication: N/A Justification of Continued Inpatient Treatment: Pt. continues to require a safe and supportive environment while she awaits placement.
[2020-01-18 20:00] VITALS: BP 118/70
[2020-01-18] MEDS: estradiol 1mg tablet PO SCH (20:16)
[2020-01-18] MEDS: CLOMIPRAMINE HCL 50 MG CAPSULE PO SCH (20:16)
[2020-01-18] MEDS: traZODone 50mg tablet PO PRN (20:19)
--- NOTE | 2020-01-19 03:21 | NUR ---
NURSING PROGRESS NOTE Legal hold: LPS Client on involuntary status for GD Report received from BENI Mays with use of SBAR Why they are here: The patient was AWOL at previous facility and began to decompensate. She is LPS conserved. She was cooperative with admission however quite paranoid. Stated on her trip up to [place] someone at a rest stop told her she was going to stay at this facility for 17 years, and kept asking staff if that was true. Assessment What has happened this shift: Pt mostly isolated to herself this evening. She states, "It was a lot to think I was going to a hearing, then not be going." Pt says she is "okay" regarding the miscommunication over the court hearing and that she "would like more sleep tonight." Pt did not endorse any delusions or paranoias to this RN. Complaint with medications and Nystatin cream applied to rash, which is slightly reddened but appears to be clearing well. S/I, H/I: Denies A/VH: Denies, and not observed to be responding to IS Sleep: Pt sleeping better than last night. See Sleep Assessment. ADL's: Independent, Showered this evening Group attendance: N/A Were meds taken: Yes Any med S/E: None reported nor observed Mental Status Exam Appearance: Clean, wearing personal clothing and nonskid socks Eye contact: Direct Behavior: Isolated to room, attended snack Speech: WNL, normal rate and rhythm Mood: "I'm okay", Pt appears downcast and tired Affect: Flat Thought process: No delusions or paranoias endorsed this shift Thought Content: the court hearing date being incorrect Cognition: A/Ox3 Insight: Poor Judgment: poor Interventions PRN's used: Trazodone 50mg for sleep to good effect Therapeutic interventions: Maintained a safe and therapeutic environment, ensured contract for safety, provided clear and simple instructions, monitored behavior and need for intervention, provided redirection/reassurance as needed encouraged participation on the unit, and maintained Q 15min safety checks. Restraints/seclusion/emergency medication: N/A Justification of Continued Inpatient Treatment: Pt. continues to require a safe and supportive environment while she awaits placement.
[2020-01-19 07:40] VITALS: BP 107/72
[2020-01-19] MEDS: glycopyrrolate 1mg tablet PO SCH ×2 (07:51→20:13)
[2020-01-19] MEDS: FERROUS SULFATE 142 MG TABLET.ER (45mg elemental) PO SCH ×3 (07:51→18:04)
[2020-01-19] MEDS: nicotine 7mg patch - 24hr TD SCH (07:51)
[2020-01-19] MEDS: docusate sod 100mg capsule PO SCH ×2 (07:52→20:13)
[2020-01-19] MEDS: levoTHYROXINE 25mcg tablet PO SCH (07:52)
[2020-01-19] MEDS: lithium carbonate 300mg SR tablet (LithoBID) PO SCH ×3 (07:52→20:13)
[2020-01-19] MEDS: ascorbic acid 500mg tablet PO SCH (07:52)
[2020-01-19] MEDS: NYSTATIN CREAM - 30GM TUBE TP SCH ×2 (07:59→20:13)
--- NOTE | 2020-01-19 12:27 | NUR ---
1:1-CBT Check-in Goal- Decrease anxiety associated w/prolonged in-patient stay Presenting Issues: Pt's been increasingly anxious re placement and LOS. In addition, it's been reported that pt frequently asks care team for hand solid waste analyst. It has also been reported that pt (last week) was able to access hand solid waste analyst while enroute to the patio for time outside, and last night pt was discovered snorting her meds and other pts have reported that pt had asked them to cheek their meds & give them to her. Interventions: SS met w/pt provied 1:1 support for pt to verbalize & process emotional distress driving anxiety. SS also confronted pt's on her recent bxs re the hand solid waste analyst and the bxs associated w/inappropriate use of meds as well as encouraging other pts to cheek their meds. Pt did not deny these bxs, and verbalized that she is unable to stop them. SS explained to pt that if the bxs continues they will delay placement for her and that she may also have her outside time privileges curtailed. Plan: SS will increase 1:1 for 1x/daily to 2x/daily in an effort to provide pt with increase attention in an effort to decrease some of the anxiety & maladaptive bxs. Yeny Melendrez LCSW Addendum: 01/19/20 at 1248 by Yeny Melendrez SS Amended: Links added.
[2020-01-19] MEDS: LORazepam 1 MG tablet PO PRN (12:55)
[2020-01-19] MEDS: OLANZapine 5mg rapidly disint. tablet PO PRN (12:57)
[2020-01-19] MEDS: diphenhydrAMINE 25mg capsule PO PRN (12:57)
--- NOTE | 2020-01-19 15:12 | NUR ---
CM-Placement SS received request from [facility] for updated packet for placement. SS faxed packet to facilitate placement services for pt. Yeyn Melendrez BRICK SORTER Addendum: 01/19/20 at 1514 by Yeny Melendrez SS Amended: Links added.
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
[2020-01-19] MEDS: traZODone 50mg tablet PO PRN (20:12)
[2020-01-19] MEDS: CLOMIPRAMINE HCL 50 MG CAPSULE PO SCH (20:12)
[2020-01-19] MEDS: estradiol 1mg tablet PO SCH (20:13)
[2020-01-19 20:32] VITALS: BP 127/80
--- NOTE | 2020-01-19 23:48 | NUR ---
NURSING PROGRESS NOTE: Legal hold: LPS Client on involuntary status for GD Report received from Damien RN with use of SBAR Why they are here: The patient was AWOL at previous facility and began to decompensate. She is LPS conserved. She was cooperative with admission however quite paranoid. Stated on her trip up to [place] someone at a rest stop told her she was going to stay at this facility for 17 years, and kept asking staff if that was true. Assessment What has happened this shift: Pt states she had a good day but expressed concern about her weight. This RN and pt discussed options for exercise and better food choices during her inpatient stay. Pt did not endorse any delusions or paranoias to this RN and said "I'm glad I got some sleep." Complaint with medications and Nystatin cream applied to rash, which is clearing well; looks markedly improved from last evening. S/I, H/I: Denies A/VH: Denies, and not observed to be responding to IS Sleep: Pt sleeping better than last night. See Sleep Assessment. ADL's: Independent Group attendance: N/A Were meds taken: Yes Any med S/E: None reported nor observed Mental Status Exam Appearance: Clean, wearing personal clothing, hat, glasses and nonskid socks Eye contact: Direct Behavior: attended snack, walked hallways, watched TV Speech: WNL, normal rate and rhythm Mood: "I'm okay", Pt appears downcast and tired Affect: Flat Thought process: Linear; No delusions or paranoias endorsed this shift Thought Content: concerned about weight gain Cognition: A/Ox3 Insight: Poor Judgment: poor to fair Interventions PRN's used: Trazodone 50mg for sleep to good effect Therapeutic interventions: Maintained a safe and therapeutic environment, ensured contract for safety, provided clear and simple instructions, monitored behavior and need for intervention, provided redirection/reassurance as needed encouraged participation on the unit, and maintained Q 15min safety checks. Restraints/seclusion/emergency medication: N/A Justification of Continued Inpatient Treatment: Pt. continues to require a safe and supportive environment while she awaits placement. Per note, pt should be meeting with Adam DELEON this week, after which her court hearing can be scheduled.
[2020-01-20] MEDS: glycopyrrolate 1mg tablet PO SCH ×2 (07:34→21:38)
[2020-01-20] MEDS: nicotine 7mg patch - 24hr TD SCH (07:34)
[2020-01-20] MEDS: levoTHYROXINE 25mcg tablet PO SCH (07:34)
[2020-01-20] MEDS: ascorbic acid 500mg tablet PO SCH (07:35)
[2020-01-20] MEDS: docusate sod 100mg capsule PO SCH ×2 (07:35→21:39)
[2020-01-20] MEDS: lithium carbonate 300mg SR tablet (LithoBID) PO SCH ×3 (07:36→21:39)
[2020-01-20] MEDS: NYSTATIN CREAM - 30GM TUBE TP SCH ×2 (07:53→21:00)
[2020-01-20] MEDS: FERROUS SULFATE 142 MG TABLET.ER (45mg elemental) PO SCH ×3 (07:53→18:20)
[2020-01-20] MEDS: OLANZapine 5mg rapidly disint. tablet PO PRN ×2 (07:53→19:05)
[2020-01-20] MEDS: diphenhydrAMINE 25mg capsule PO PRN (10:10)
[2020-01-20] MEDS: LORazepam 1 MG tablet PO PRN ×2 (10:10→19:05)
--- NOTE | 2020-01-20 13:15 | NUR ---
1:1-CBT Check-in Presenting Issues: Pt continues to exhibit delusional thoughts & beliefs, and anxiety associated w/placement issues. Interventions: SS met w/pt @ bedside, provided 1:1 support via CBT for pt to verbalize & process emotional distress associated with placement. Pt verbalize desires for B&C placement as oppose to IMD. SS acknowledged & normalized pt's desire for a B&C placement and engaged pt in discussion re what it takes for PG to consider B&C for pt. Pt states, "I have been good". SS worked w/pt in identifying what 'good' looks like w/re to pt, pt was unable to come up w/any ideas as to what she needs to do to improve her placement situation. SS suggest pt give some thoughts to decreasing the number of times she eats hand hangersmith, asks for hand hangersmith, misuse her meds and encourage others to cheek their meds. Pt states that she's no longer doing these things. SS praised pt for her effort, validated how hard it is for pt to resist the impulse to engage in these bxs and informed her that her PG needs to see that she can resist these impulses over a prolonged period of time and ask pt to think about setting a goal for having 1 week where she does not have anything to do w/hand sanitizers and complies w/meds regiment as prescribed. Plan: SS will continue providing 1:1, 1x/daily; SS will meet w/pt tomorrow and determine if pt's ready to set some behavioral goals for herself. Yeny Melendrez LCSW Addendum: 01/20/20 at 1410 by Yeny SAMAYOA Amended: Links added.
--- NOTE | 2020-01-20 14:58 | NUR ---
Reassessment: Pt continues with 75-100% PO intake. meeting nutrient needs. No nutrition intervention warranted at this time. Will continue to follow. Recommendations: 1) Continue regular diet 2) Routine bowel care 3) Scaled wts per rx Addendum: 01/20/20 at [address] Amended: Links added.
--- NOTE | 2020-01-20 18:04 | NUR ---
Nursing Progress Note: Legal hold: LPS Report received from BENI Hernandez with use of SBAR Why are they here: The patient was AWOL at previous facility and began to decompensate. She is LPS conserved. She was cooperative with admission however quite paranoid. Stated on her trip up to [place] someone at a rest stop told her she was going to stay at this facility for 17 years, and kept asking staff if that was true? Responded well to redirection and reassurance. Assessment What has happened this shift: Received patient sleeping at shift change, respirations even and unlabored. Pt. Woke for breakfast and patio break. Pt. Presented as agitated, during med pass pt was talking to someone who wasnt there. Dont touch me J.C! Get off my fuckin bed! Patient also voiced paranoia regarding her water pitcher I need another one someone drank out of that one. Patient remained elevated until after Ativan and Benadryl were administered. Patient was cooperative with care and medications. Patient states she stubbed her right little toe. Toenail is loose, cleansed with normal saline and wrapped with a band aid. Will monitor. No outbursts noted this shift. S/I, H/I: Denies both. A/VH: Denies, but observed AH.- see note above. Sleep: 9 hrs per Sleep Assessment. No naps this shift ADL's: Requires some redirection from staff Group attendance: Did not attend group. Were meds taken: Yes, without hesitation. Any med S/E: None observed or reported. Mental Status Exam Appearance: Disheveled, wearing personal attire. Eye contact: Fair Behavior: Cooperative, anxious, restless, and agitated at times Speech: Audible, soft, pressured at times. Mood: Agitated at first, then became more cooperative and calm. Affect: Congruent to mood. Thought process: Circumstantial Thought Content: Paranoid delusions and preoccupations. Cognition: A&O X4 Insight: Poor Judgment: Fair Interventions PRN's used: Ativan, Benadryl, Zyprexa zydis Therapeutic interventions: Maintained a safe and therapeutic environment, provided clear and simple instructions, monitored behavior and need for intervention, provided redirection/reassurance as needed, information to patient, and maintained Q 15min safety checks. Restraints/seclusion/emergency medication: N/A Justification of Continued Inpatient Treatment: Pt. continues to require a safe and supportive environment while she awaits placement.
[2020-01-20] MEDS: acetaminophen 325mg tablet PO PRN (19:05)
--- NOTE | 2020-01-20 19:20 | NUR ---
Patient approached this writer technical publications asking for iced tea. This was given. Patient complains of vaginal pain, she also tells this writer technical publications that she is agitated. Patient wants Zyprexa and Ativan. Both were given. Patient denies hallucinations, she states she is angry but does not know why. Patient denies H/I or S/I. Patient tells this writer technical publications she feels depressed today. "I have not talked to others today, I didn't want talk to anyone." The patient tells this writer technical publications that she is hoping to discharge to a fdc soon. Patient exhibits a flat affect. Patients nicotine patch was removed.
--- NOTE | 2020-01-20 19:42 | NUR ---
Patient experienced a food emesis at bedside onto the floor. Patient denies any nausea. Saltine crackers given to patient at her request. Patient denies need for an antiemetic.
[2020-01-20 20:00] VITALS: BP 134/83
[2020-01-20] MEDS: CLOMIPRAMINE HCL 50 MG CAPSULE PO SCH (21:39)
[2020-01-20] MEDS: traZODone 50mg tablet PO PRN (21:39)
[2020-01-20] MEDS: estradiol 1mg tablet PO SCH (21:49)
[2020-01-20] MEDS ORDERED: ondansetron 4mg rapidly disintigrating tab PO PRN (22:40)
--- NOTE | 2020-01-20 23:28 | NUR ---
Nursing Progress Note: Legal hold: LPS Report received from BENI Rice with use of SBAR Why are they here: The patient was AWOL at previous facility and began to decompensate. She is LPS conserved. She was cooperative with admission however quite paranoid. Stated on her trip up to [place] someone at a rest stop told her she was going to stay at this facility for 17 years, and kept asking staff if that was true? Responded well to redirection and reassurance. Assessment What has happened this shift: Patient approached this freelance writer after shift change asking for iced tea. This was given. Patient complains of vaginal pain, she also tells this freelance writer that she is agitated. Patient wants Zyprexa and Ativan. Both were given. Patient denies hallucinations, she states she is angry but does not know why. Patient denies H/I or S/I. Patient tells this freelance writer she feels depressed today. "I have not talked to others today, I didn't want talk to anyone." The patient tells this freelance writer that she is hoping to discharge to a skilled nursing soon. Patient exhibits a flat affect. Patients nicotine patch was removed. Approximately 45 minutes after Rx medication administration patient Patient experienced a food emesis. No pill fragments notes in vomitus. Patient denies nausea after emesis. Patient did exhibit one delusional episode where she verbalized that this freelance writer told her she could have Klonopin. This was not the case. Patient complied with the rest of her night time medications. Patient tells this freelance writer (around 21:30 hours) that she is feeling good. The patient then retired to sleep. S/I, H/I: Denies. A/VH: Denies. Patient was delusional for a short period. Sleep: Will tally at 0500 hours. ADL's: No assistance required on NOC shift. Group attendance: No group on nights. Were meds taken: Yes, without hesitation. Any med S/E: None observed or reported. Mental Status Exam Appearance: Disheveled, wearing personal attire. Eye contact: Fair Behavior: Cooperative, anxious, restless, and agitated at times Speech: Audible, soft, pressured at times. Mood: Agitated at first, then became more cooperative and calm. Affect: Congruent to mood. Thought process: Circumstantial Thought Content: Paranoid delusions and preoccupations. Cognition: A&O X4 Insight: Poor Judgment: Fair Interventions PRN's used: Ativan and Zyprexa. Therapeutic interventions: Maintained a safe and therapeutic environment, provided clear and simple instructions, monitored behavior and need for intervention, provided redirection/reassurance as needed, information to patient, and maintained Q 15min safety checks. Restraints/seclusion/emergency medication: N/A Justification of Continued Inpatient Treatment: Pt. continues to require a safe and supportive environment while she awaits placement.
[2020-01-21] MEDS: levoTHYROXINE 25mcg tablet PO SCH (07:45)
[2020-01-21] MEDS: FERROUS SULFATE 142 MG TABLET.ER (45mg elemental) PO SCH ×3 (07:49→17:28)
[2020-01-21] MEDS: lithium carbonate 300mg SR tablet (LithoBID) PO SCH ×3 (07:49→20:40)
[2020-01-21] MEDS: ascorbic acid 500mg tablet PO SCH (07:50)
[2020-01-21] MEDS: glycopyrrolate 1mg tablet PO SCH ×2 (07:50→20:39)
[2020-01-21] MEDS: docusate sod 100mg capsule PO SCH ×2 (07:50→20:39)
[2020-01-21] MEDS: NYSTATIN CREAM - 30GM TUBE TP SCH ×2 (07:51→20:39)
[2020-01-21] MEDS: nicotine 7mg patch - 24hr TD SCH (07:57)
[2020-01-21 08:39] VITALS: BP 134/88
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
[2020-01-21 19:00] VITALS: BP 124/87
[2020-01-21] MEDS: OLANZapine 5mg rapidly disint. tablet PO PRN (19:13)
[2020-01-21] MEDS: LORazepam 1 MG tablet PO PRN (19:13)
[2020-01-21] MEDS: estradiol 1mg tablet PO SCH (20:39)
[2020-01-21] MEDS: CLOMIPRAMINE HCL 50 MG CAPSULE PO SCH (20:39)
[2020-01-21] MEDS: traZODone 50mg tablet PO PRN (20:39)
--- NOTE | 2020-01-21 23:32 | NUR ---
Nursing Progress Note: Legal hold: LPS Report received from BENI Rice with use of SBAR Why are they here: The patient was AWOL at previous facility and began to decompensate. She is LPS conserved. She was cooperative with admission however quite paranoid. Stated on her trip up to [place] someone at a rest stop told her she was going to stay at this facility for 17 years, and kept asking staff if that was true? Responded well to redirection and reassurance. Assessment Patient approached this staff writer following shift change. The patient speaks in a whisper. She asks this staff writer to give her "a different pill." This staff writer interviewed the patient in her room. The patient accuses this staff writer of giving away her Klonopin to another patient. The patient was advised that Klonopin is not on her medication list, also, her med's are not being given away. The patient states she is angry. Patient exhibits irritation. The patient does not believe this writers explanation. The patient exhibits paranoia. This staff writer promises to recheck the MAR. The patient later expresses the same thoughts. The patient wants Klonopin for her anxiety. Patient agrees to take ativan and zyprexa, both were given. Patient later calmed, her delusions subsided. The patient becomes friendly and socializes with other patients in the hallway. S/I, H/I: Pt denies. A/VH: Pt denies. Patient exhibits internal stimuli. Sleep: Patient is sleeping quietly following evening med's. ADL's: Independent, needs encouragement with personal hygiene. Group attendance: None on nights. Were med's taken: Yes, patient is medication compliant. Any med S/E: None noted or reported. Mental Status Exam Appearance: Patient is clean and wearing green scrubs. Eye contact: Intermittent. Behavior: Cooperative, anxious, responds to internal stimuli at times Speech: Quiet speech, whispering at times. Mood: Angry. Affect: Flat. Thought process: Delusional, perseverative, paranoid at times. Thought Content: Delusional, patient believes her med's are being given away. Cognition: A&O X4. Insight: Poor/impaired. Judgment: Fair. Interventions PRN's used: None Therapeutic interventions: 1:1 assessment, maintained a safe and therapeutic environment, provided clear and simple instructions, monitored behavior and need for intervention, provided redirection/reassurance as needed, encouragement to perform personal hygiene, limit setting, positive reinforcement, Q 15 minute safety checks. Restraints/seclusion/emergency medication: N/A Justification of Continued Inpatient Treatment: Pt continues to require a safe and supportive environment while she awaits placement.
[2020-01-22 08:00] VITALS: BP 126/73
[2020-01-22] MEDS: NYSTATIN CREAM - 30GM TUBE TP SCH ×2 (08:00→19:19)
[2020-01-22] MEDS: levoTHYROXINE 25mcg tablet PO SCH (08:05)
[2020-01-22] MEDS: ascorbic acid 500mg tablet PO SCH (08:06)
[2020-01-22] MEDS: lithium carbonate 300mg SR tablet (LithoBID) PO SCH ×3 (08:07→20:01)
[2020-01-22] MEDS: glycopyrrolate 1mg tablet PO SCH ×2 (08:07→19:18)
[2020-01-22] MEDS: docusate sod 100mg capsule PO SCH ×2 (08:07→19:18)
[2020-01-22] MEDS: FERROUS SULFATE 142 MG TABLET.ER (45mg elemental) PO SCH ×3 (08:07→17:45)
[2020-01-22] MEDS: nicotine 7mg patch - 24hr TD SCH (08:18)
[2020-01-22] MEDS: LORazepam 1 MG tablet PO PRN ×2 (12:15→18:49)
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
[2020-01-22] MEDS: OLANZapine 5mg rapidly disint. tablet PO PRN (16:06)
[2020-01-22] MEDS: estradiol 1mg tablet PO SCH (20:01)
[2020-01-22] MEDS: CLOMIPRAMINE HCL 50 MG CAPSULE PO SCH (20:01)
[2020-01-22 20:11] VITALS: BP 110/76
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
[2020-01-23 07:00] VITALS: BP 118/74
[2020-01-23] MEDS: nicotine 7mg patch - 24hr TD SCH (07:47)
[2020-01-23] MEDS: FERROUS SULFATE 142 MG TABLET.ER (45mg elemental) PO SCH ×3 (07:48→18:05)
[2020-01-23] MEDS: ascorbic acid 500mg tablet PO SCH (07:48)
[2020-01-23] MEDS: glycopyrrolate 1mg tablet PO SCH ×2 (07:48→20:26)
[2020-01-23] MEDS: docusate sod 100mg capsule PO SCH ×2 (07:48→20:24)
[2020-01-23] MEDS: levoTHYROXINE 25mcg tablet PO SCH (07:48)
[2020-01-23] MEDS: lithium carbonate 300mg SR tablet (LithoBID) PO SCH ×3 (07:48→20:25)
[2020-01-23] MEDS: NYSTATIN CREAM - 30GM TUBE TP SCH ×2 (07:49→20:00)
[2020-01-23] MEDS: LORazepam 1 MG tablet PO PRN ×2 (10:17→16:35)
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
[2020-01-23] MEDS: estradiol 1mg tablet PO SCH (20:26)
[2020-01-23] MEDS: CLOMIPRAMINE HCL 50 MG CAPSULE PO SCH (20:26)
[2020-01-23 21:00] VITALS: BP 128/59
--- NOTE | 2020-01-24 00:18 | NUR ---
Nursing Progress Note: Legal hold: LPS Report received from BENI Rice with use of SBAR Why are they here: The patient was AWOL at previous facility and began to decompensate. She is LPS conserved. She was cooperative with admission however quite paranoid. Stated on her trip up to [place] someone at a rest stop told her she was going to stay at this facility for 17 years, and kept asking staff if that was true? Responded well to redirection and reassurance. Assessment What has happened this shift: Patient was awake and pacing the halls. She was social with peers and intrusive with staff. Pt asked for hand transmission rebuilder ,food , coffee multiple time from staff. She did not make any delusional statements this shift . She ate snack in group room then went to bed. S/I, H/I: Pt denies A/VH: Pt. denies. Sleep: napped ADL's: Independent, needs encouragement with personal hygiene. Group attendance: NA Were meds taken: Yes, Any med S/E: None noted or reported Mental Status Exam Appearance: Clean and neat in unit attire. Eye contact: good Behavior: Cooperative, anxious Speech: Clear, soft Mood: Anxious Affect: Constricted Thought process: Delusional at times, linear Thought Content: Wants to get high. Cognition: Alert Insight: Poor/impaired Judgment: Fair Interventions PRN's used: Therapeutic interventions: 1:1 assessment, maintained a safe and therapeutic environment, provided clear and simple instructions, monitored behavior and need for intervention, provided redirection/reassurance as needed, encouragement to perform personal hygiene, limit setting, positive reinforcement, Q 15 minute safety checks. Restraints/seclusion/emergency medication: N/A Justification of Continued Inpatient Treatment: Pt continues to require a safe and supportive environment while she awaits placement.
[2020-01-24] MEDS: levoTHYROXINE 25mcg tablet PO SCH (07:00)
[2020-01-24 08:00] VITALS: BP 107/67
[2020-01-24] MEDS: NYSTATIN CREAM - 30GM TUBE TP SCH ×2 (08:00→20:00)
[2020-01-24] MEDS: LORazepam 1 MG tablet PO PRN ×2 (08:04→13:47)
[2020-01-24] MEDS: OLANZapine 5mg rapidly disint. tablet PO PRN ×2 (08:05→16:30)
[2020-01-24] MEDS: glycopyrrolate 1mg tablet PO SCH ×2 (08:05→20:32)
[2020-01-24] MEDS: nicotine 7mg patch - 24hr TD SCH (08:05)
[2020-01-24] MEDS: FERROUS SULFATE 142 MG TABLET.ER (45mg elemental) PO SCH ×3 (08:05→17:11)
[2020-01-24] MEDS: ascorbic acid 500mg tablet PO SCH (08:05)
[2020-01-24] MEDS: lithium carbonate 300mg SR tablet (LithoBID) PO SCH ×3 (08:06→20:32)
[2020-01-24] MEDS: docusate sod 100mg capsule PO SCH ×2 (08:06→20:34)
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
[2020-01-24 20:00] VITALS: BP 164/97
[2020-01-24] MEDS: estradiol 1mg tablet PO SCH (20:33)
[2020-01-24] MEDS: CLOMIPRAMINE HCL 50 MG CAPSULE PO SCH (20:34)
[2020-01-24] MEDS: traZODone 50mg tablet PO PRN (20:41)
--- NOTE | 2020-01-24 23:59 | NUR ---
Nursing Progress Note: Legal hold: LPS Report received from Elli Perez, cloth dyer with use of SBAR Why are they here: The patient was AWOL at previous facility and began to decompensate. She is LPS conserved. She was cooperative with admission however quite paranoid. Stated on her trip up to [place] someone at a rest stop told her she was going to stay at this facility for 17 years, and kept asking staff if that was true? Responded well to redirection and reassurance. Assessment What has happened this shift: Patient was asleep at shift change. She remained in bed refused snack and needed to be awakened for medication. No reports of delusional statement this shift or responding to internal stimuli. during interview pt stated that she is realy tired today and just wants to sleep. S/I, H/I: Pt denies A/VH: Pt. denies. Sleep: napped intermittently throughout the day. ADL's: Independent, needs encouragement with personal hygiene. Group attendance: No Were meds taken: Yes, Any med S/E: None noted or reported Mental Status Exam Appearance: Clean and neat in personal clothing Eye contact: good Behavior: Cooperative, anxious Speech: Clear, soft Mood: Anxious Affect: Constricted Thought process: Delusional at times, linear Thought Content: Wants to go to a board and care. Cognition: Alert Insight: Poor/impaired Judgment: Fair Interventions PRN's used: Trazodone Therapeutic interventions: 1:1 assessment, maintained a safe and therapeutic environment, provided clear and simple instructions, monitored behavior and need for intervention, provided redirection/reassurance as needed, encouragement to perform personal hygiene, limit setting, positive reinforcement, Q 15 minute safety checks. Restraints/seclusion/emergency medication: N/A Justification of Continued Inpatient Treatment: Pt continues to require a safe and supportive environment while she awaits placement.
[2020-01-25] MEDS: levoTHYROXINE 25mcg tablet PO SCH (07:29)
[2020-01-25] MEDS: docusate sod 100mg capsule PO SCH ×2 (07:30→20:14)
[2020-01-25] MEDS: glycopyrrolate 1mg tablet PO SCH ×2 (07:30→20:14)
[2020-01-25] MEDS: ascorbic acid 500mg tablet PO SCH (07:30)
[2020-01-25] MEDS: lithium carbonate 300mg SR tablet (LithoBID) PO SCH ×3 (07:30→20:13)
[2020-01-25] MEDS: FERROUS SULFATE 142 MG TABLET.ER (45mg elemental) PO SCH ×3 (07:30→17:38)
[2020-01-25] MEDS: nicotine 7mg patch - 24hr TD SCH (07:30)
[2020-01-25 08:00] VITALS: BP 125/86
[2020-01-25] MEDS: NYSTATIN CREAM - 30GM TUBE TP SCH ×2 (08:00→20:15)
[2020-01-25] MEDS: diphenhydrAMINE 25mg capsule PO PRN (08:21)
[2020-01-25] MEDS: OLANZapine 5mg rapidly disint. tablet PO PRN ×2 (08:21→14:14)
[2020-01-25] MEDS: LORazepam 1 MG tablet PO PRN (08:21)
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
[2020-01-25] MEDS: estradiol 1mg tablet PO SCH (20:14)
[2020-01-25] MEDS: CLOMIPRAMINE HCL 50 MG CAPSULE PO SCH (20:16)
[2020-01-25] MEDS: traZODone 50mg tablet PO PRN (20:23)
[2020-01-25 20:41] VITALS: BP 124/78
--- NOTE | 2020-01-25 22:49 | NUR ---
Nursing Progress Note: Legal hold: LPS Report received from Dwayne BAZAN with use of SBAR Why are they here: Ms. Shira Piedra is a 34yo woman with a significant mental health history who is LPS conserved. She was previously at [facility] and began to decompensate. She has had psychiatric issues since 26yo. She has had several hospitalizations. She is currently on conservatorship for the past year, and has been on conservatorship prior to this as well. Assessment What has happened this shift: The patient has been up on the unit. She denies any kind of mental health symptoms or having a mental illness. She was observed whispering to herself however denies hearing voices. She initially refused her evening medications but then ended up taking them a short time later. She was fairly withdrawn to her room. S/I, H/I: denied A/VH: denied but appears preoccupied by internal stimuli. ADL's: independent Were meds taken: yes Any med S/E none reported or observed. Mental Status Exam Appearance: appears clean and dressed in green hospital scrubs Eye contact: Intermittent Behavior: withdrawn Speech: spontaneous Mood: "alright. It's pretty good. It's fair" Affect: blunted Thought process: vague, limited focus and insight Thought Content: difficult to fully assess as the patient was very vague and minimal during the evening assessment. Cognition: alert and oriented Insight: poor Judgment: poor Interventions PRN's used: none Justification of Continued Inpatient Treatment: The patient is conserved and placement is pending
[2020-01-26] MEDS: mag hydrox/Alum hydrox/simeth 30ml oral suspension PO PRN ×2 (00:23→23:56)
[2020-01-26] MEDS: traZODone 50mg tablet PO PRN ×2 (00:24→20:06)
[2020-01-26] MEDS: diphenhydrAMINE 25mg capsule PO PRN ×2 (00:24→10:42)
[2020-01-26] MEDS: LORazepam 1 MG tablet PO PRN ×2 (00:24→10:42)
[2020-01-26] MEDS: nicotine 7mg patch - 24hr TD SCH (07:20)
[2020-01-26] MEDS: levoTHYROXINE 25mcg tablet PO SCH (07:20)
[2020-01-26] MEDS: glycopyrrolate 1mg tablet PO SCH ×2 (07:20→20:05)
[2020-01-26] MEDS: FERROUS SULFATE 142 MG TABLET.ER (45mg elemental) PO SCH ×3 (07:21→17:15)
[2020-01-26] MEDS: ascorbic acid 500mg tablet PO SCH (07:21)
[2020-01-26] MEDS: docusate sod 100mg capsule PO SCH ×2 (07:21→20:05)
[2020-01-26] MEDS: lithium carbonate 300mg SR tablet (LithoBID) PO SCH ×3 (07:22→20:05)
[2020-01-26] MEDS: NYSTATIN CREAM - 30GM TUBE TP SCH ×2 (07:22→20:00)
[2020-01-26] MEDS: perphenazine 8mg tablets PO SCH ×3 (07:45→20:06)
[2020-01-26 08:00] VITALS: BP 127/87
[2020-01-26] MEDS: NICOTINE POLACRILEX 2 MG LOZENGE BC PRN (10:46)
--- NOTE | 2020-01-26 13:38 | NUR ---
Reassessment: Pt continues with 75-100% PO intake. meeting nutrient needs. No nutrition intervention warranted at this time. Will continue to follow. Recommendations: 1) Continue regular diet 2) Routine bowel care 3) Scaled wts per rx Addendum: 01/26/20 at [address] Amended: Links added.
[2020-01-26] MEDS: OLANZapine 5mg rapidly disint. tablet PO PRN (15:22)
--- NOTE | 2020-01-26 18:05 | NUR ---
Nursing Progress Note: Legal hold: LPS Report received from BENI Hernandez with use of SBAR Why are they here: The patient was AWOL at previous facility and began to decompensate. She is LPS conserved. She was cooperative with admission however quite paranoid. Stated on her trip up to [place] someone at a rest stop told her she was going to stay at this facility for 17 years, and kept asking staff if that was true? Responded well to redirection and reassurance. Assessment What has happened this shift: Received patient pacing the ni at shift change. Greets ad copy writer with smile, reports she didnt sleep well. Pt. states she left her Nicotine patch on; educated on removing patch at night. Concerned about her placement I was told I will be her for 3 years. Pt. reassured that placement is being worked on, pt. agreeable. Up for breakfast and patio break. Pt. is appropriately friendly with male peer, observed several times walking or talking together. Pt. reports I feel anxious, I cant have what I want (referring to a cigarette. Administered Ativan, Benadryl and Nicotine lozenge with good effect. Pt. later observed having conversation with someone who isnt there at times raising her voice. Zydis administered with effect. S/I, H/I: Pt. denies both. A/VH: Observed pt. talking to someone who wasnt there. Pt. appears to get angry with them at times. Sleep: 6.75 hrs. over night. No naps this shift. ADL's: Independent, needs encouragement for personal hygiene. Group attendance: No Were meds taken: Yes, without hesitation Any med S/E: Pt. denies, none observed. Mental Status Exam Appearance: Disheveled, wearing green unit scrubs, hair pulled back into ponytail. Eye contact: Good Behavior: Slightly more social, pacing halls, paranoid statements. Speech: Clear, soft, pressured at times. Mood: Less anxious. Affect: Constricted Thought process: Delusional Thought Content: Coffee and discharge. Cognition: Alert Insight: Poor Judgment: Fair Interventions PRN's used: Ativan, Benadryl, Nicotine lozenge. Therapeutic interventions: 1:1 assessment, maintained a safe and therapeutic environment, provided clear and simple instructions, monitored behavior and need for intervention, provided redirection/reassurance as needed, encouragement to perform personal hygiene, limit setting, positive reinforcement, Q 15 minute safety checks. Restraints/seclusion/emergency medication: N/A Justification of Continued Inpatient Treatment: Patient continues to require a safe and supportive environment while she awaits placement.
--- NOTE | 2020-01-26 18:24 | NUR ---
Ordered pt's Nystatin Cream - in [employer].
[2020-01-26] MEDS: CLOMIPRAMINE HCL 50 MG CAPSULE PO SCH (20:06)
[2020-01-26] MEDS: estradiol 1mg tablet PO SCH (20:06)
[2020-01-26 20:39] VITALS: BP 128/90
--- NOTE | 2020-01-27 01:01 | NUR ---
Nursing Progress Note: Legal hold: LPS Report received from BENI BARRERA with use of SBAR Why are they here: The patient was AWOL at previous facility and began to decompensate. She is LPS conserved. She was cooperative with admission however quite paranoid. Stated on her trip up to [place] someone at a rest stop told her she was going to stay at this facility for 17 years, and kept asking staff if that was true? Responded well to redirection and reassurance. Assessment What has happened this shift: Pt was walking in the hallway at change of shift, smiles and says she is doing good. A few minutes later she shouts out for one of the male patients to stop following her everywhere. However the male patient she was yelling at wasnt anywhere near her, he was in the group room and she was down the ni near her bedroom. Pt appeared agitated but she when asked again, said she was doing ok and feeling "fine". Pt states she had a good day and had no needs. She was later asking nurses for hand wheelman and was redirected away from observation room. Ot states she didn't need medication tonight because she has a place and is leaving tomorrow, oriented patient and told her I did not get any information in report that she was leaving. She said ok and then pt took meds but declined nystatin cream for her thighs. Stating her legs are better, she did not want me to look at her legs tonight. Pt woke up approximately midnight complaining of indigestion and was given prn then she returned to bed. S/I, H/I: Denies A/VH:Pt talking to herself in the ni and gets irritated and begins yelling at another patient that isnt present. Sleep: see sleep hours ADL's: Independent, needs encouragement for personal hygiene. Group attendance: No Were meds taken: Yes, she did not want to apply nystatin cream Any med S/E: Pt. denies, none observed. Mental Status Exam Appearance: Disheveled, wearing green unit scrubs, hair pulled back into ponytail. Eye contact: Good Behavior: pacing halls, RIS Speech: Clear, soft, pressured at times. Mood: anxious Affect: Constricted Thought process: Delusional Thought discharge and asking for hand wheelman Cognition: Alert Insight: Poor Judgment: Fair Interventions PRN's used: Trazadone, Maalox Therapeutic interventions: 1:1 assessment, maintained a safe and therapeutic environment, provided clear and simple instructions, monitored behavior and need for intervention, provided redirection/reassurance as needed, encouragement to perform personal hygiene, limit setting, positive reinforcement, Q 15 minute safety checks. Restraints/seclusion/emergency medication: N/A Justification of Continued Inpatient Treatment: Patient continues to require a safe and supportive environment while she awaits placement.
--- NOTE | 2020-01-27 01:58 | NUR ---
Nicotine patch removed
[2020-01-27 08:00] VITALS: BP 115/70
[2020-01-27] MEDS: levoTHYROXINE 25mcg tablet PO SCH (08:23)
[2020-01-27] MEDS: NYSTATIN CREAM - 30GM TUBE TP SCH ×2 (08:23→19:28)
[2020-01-27] MEDS: glycopyrrolate 1mg tablet PO SCH ×2 (08:23→19:28)
[2020-01-27] MEDS: nicotine 7mg patch - 24hr TD SCH (08:23)
[2020-01-27] MEDS: FERROUS SULFATE 142 MG TABLET.ER (45mg elemental) PO SCH ×3 (08:23→17:33)
[2020-01-27] MEDS: docusate sod 100mg capsule PO SCH ×2 (08:24→19:28)
[2020-01-27] MEDS: ascorbic acid 500mg tablet PO SCH (08:24)
[2020-01-27] MEDS: perphenazine 8mg tablets PO SCH ×3 (08:24→20:01)
[2020-01-27] MEDS: lithium carbonate 300mg SR tablet (LithoBID) PO SCH ×3 (08:41→20:01)
[2020-01-27] MEDS: OLANZapine 5mg rapidly disint. tablet PO PRN (10:12)
[2020-01-27] MEDS: diphenhydrAMINE 25mg capsule PO PRN ×2 (10:46→17:42)
[2020-01-27] MEDS: LORazepam 1 MG tablet PO PRN ×2 (10:46→17:42)
--- NOTE | 2020-01-27 11:00 | NUR ---
CM/Placement SS received request from [facility] Placement services for pt's current This was faxed to [facility]. SS will continue to engage [facility] in placement services for pt. Yeny Melendrez LCSW Addendum: 01/27/20 at 1101 by Yeny Melendrez SS Amended: Links added.
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
--- NOTE | 2020-01-27 17:46 | NUR ---
Administered Ativan and Benadryl due to increased agitation. CRN received call from pt's Aunt - said pt. had called and told her that pt. had received a phone call from a male and he told her her mother was . Pt. never received a phone call like that.
[2020-01-27] MEDS: estradiol 1mg tablet PO SCH (20:01)
[2020-01-27] MEDS: CLOMIPRAMINE HCL 50 MG CAPSULE PO SCH (20:01)
[2020-01-27 20:47] VITALS: BP 131/85
--- NOTE | 2020-01-27 23:17 | NUR ---
Nursing Progress Note: Legal hold: LPS Report received from BENI Tesfaye with use of SB[facility] Why are they here: The patient was AWOL at previous facility and began to decompensate. She is LPS conserved. She was cooperative with admission however quite paranoid. Stated on her trip up to [place] someone at a rest stop told her she was going to stay at this facility for 17 years, and kept asking staff if that was true? Responded well to redirection and reassurance. Assessment What has happened this shift: Pt isolated to her room all evening. Pt was seen in the hallways only one time during the evening. Pt appeared to be fatigued during 1:1 and did not want to discuss much. Pt denied any symptoms, including si/hi, a/vh. S/I, H/I: Pt. denies both. A/VH: denies Sleep: see sleep assessment ADL's: Independent, needs encouragement for personal hygiene. Group attendance: No Were meds taken: yes Any med S/E: Pt. denies, none observed. Mental Status Exam Appearance: lying in bed in green scrubs Eye contact: Good Behavior: tired Speech: Clear, soft, pressured at times. Mood: Less anxious. Depressed. Affect: Constricted Thought process: Delusional Thought Content: sleep Cognition: Alert Insight: Poor Judgment: Fair Interventions PRN's used: none Therapeutic interventions: 1:1 assessment, maintained a safe and therapeutic environment, provided clear and simple instructions, monitored behavior and need for intervention, provided redirection/reassurance as needed, encouragement to perform personal hygiene, limit setting, positive reinforcement, Q 15 minute safety checks. Restraints/seclusion/emergency medication: N/A Justification of Continued Inpatient Treatment: Patient continues to require a safe and supportive environment while she awaits placement.
[2020-01-28 08:00] VITALS: BP 123/70
[2020-01-28] MEDS: NYSTATIN CREAM - 30GM TUBE TP SCH (08:00)
[2020-01-28] MEDS: nicotine 7mg patch - 24hr TD SCH (08:37)
[2020-01-28] MEDS: glycopyrrolate 1mg tablet PO SCH (08:37)
[2020-01-28] MEDS: levoTHYROXINE 25mcg tablet PO SCH (08:37)
[2020-01-28] MEDS: perphenazine 8mg tablets PO SCH ×2 (08:37→12:22)
[2020-01-28] MEDS: docusate sod 100mg capsule PO SCH (08:38)
[2020-01-28] MEDS: lithium carbonate 300mg SR tablet (LithoBID) PO SCH ×2 (08:38→12:22)
[2020-01-28] MEDS: ascorbic acid 500mg tablet PO SCH (08:40)
[2020-01-28] MEDS: FERROUS SULFATE 142 MG TABLET.ER (45mg elemental) PO SCH ×3 (08:40→18:00)
[2020-01-28] MEDS: diphenhydrAMINE 25mg capsule PO PRN (09:16)
[2020-01-28] MEDS: LORazepam 1 MG tablet PO PRN (09:16)
[2020-01-28] MEDS ORDERED: OLANZapine **IM** 10 mg inj. IM ONE (10:00)
[2020-01-28 11:09] LABS: BASOPHILS % (AUTO) 0.4 % (0-1); EOSINOPHILS # (AUTO) 0.2 X10'3 (0-0.9); EOSINOPHILS % (AUTO) 2.4 % (0-6); HEMATOCRIT 35.6 % (35.0-45.0); HEMOGLOBIN 11.6 g/dl (12.0-16.0); LYMPHOCYTES # (AUTO) 2.4 X10'3 (1.1-4.8); LYMPHOCYTES % (AUTO) 30.6 % (21-51); MEAN CORPUSCULAR HGB CONC 32.5 g/dL (33.0-36.5); MEAN CORPUSCULAR VOLUME 92.1 FL (78-98); MEAN PLATELET VOLUME 7.7 FL (7.4-10.4); MONOCYTES # (AUTO) 0.6 X10'3 (0-0.9); MONOCYTES % (AUTO) 7.3 % (2-12); NEUTROPHILS # (AUTO) 4.7 X10'3 (1.8-7.7); NEUTROPHILS % (AUTO) 59.3 % (42-75); PLATELET COUNT 313 X10'3 (140-440); RED BLOOD COUNT 3.86 X10'6 (4.20-5.60); RED CELL DISTRIBUTION WIDTH 22.8 % (11.5-14.5); WHITE BLOOD COUNT 7.9 X10'3 (4.5-11.0)
[2020-01-28 11:25] LABS: ANISOCYTOSIS 3+; PLATELET ESTIMATE NORMAL; POLYCHROMASIA 1+
[2020-01-28] MEDS ORDERED: paliperidone palmitate inj 234 MG/1.5 ML SYRINGE IM ONE (11:55)
[2020-01-28] MEDS: magnesium hydroxide 30ml (MOM) UD suspension PO PRN (12:23)
--- NOTE | 2020-01-28 16:58 | NUR ---
ELOPEMENT Patient eloped from facility between 1515 and 1530. Pt was found within 8 minutes and followed on foot by security. Security communicated with charge nurse via radio while following on foot and descriptions/directions were relayed to [employer] dispatcher via charge nurse. [employer] did not arrive before security lost sight of patient. Public Guardian and TAD office notified of elopement. Notified [facility] that this patient is conserved and requested a Missing Persons report is made. Will hold bed for 24 hours.
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
[2020-01-28] MEDS ORDERED: CLONAZEPAM 0.25 MG oral disentigrating tablet (ODT) PO SCH (20:00)
--- NOTE | 2020-01-28 21:24 | NUR ---
Clients Aungrabiel Baeza called and stated "Bety called me and said she was in [place] with a aman named Damien". The number Bety called (her Aunt) from was to the [address] This RN contacted 911 to attempt to make contact with the client. A description of the client and location was provided to Law Enforcement. This RN contacted [address] and inquired if a person fitting the clients description was there. It was also stated that this person is "at risk". "Julia" the automobile assembly supervisor refused to provide any information and stated "If [employer] comes I won't give them any information either. Its our corporate policy." She then hung up on this RN.
--- NOTE | 2020-01-28 21:44 | NUR ---
Officer Ana Rosa called at 21:40 and inquired about client. He is actively searching for client.
== END 2020-01-28 15:25 | disposition left against medical advice (07) | DRG 750 ==
LOC: ADULT MH 12-16 14:42
PROVIDERS: ADMIT Psychiatry & Neurology Psychiatry; ATTEND Psychiatry & Neurology Psychiatry
DX: F20.9 Schizophrenia, unspecified (principal); D64.9 Anemia, unspecified; E03.9 Hypothyroidism, unspecified; K59.00 Constipation, unspecified; E11.9 Type 2 diabetes mellitus without complications; F17.200 Nicotine dependence, unspecified, uncomplicated; F41.9 Anxiety disorder, unspecified; F15.90 Other stimulant use, unspecified, uncomplicated; I10 Essential (primary) hypertension; N85.2 Hypertrophy of uterus; Z53.29 Procedure and treatment not carried out because of patient's decision for other reasons; Z71.6 Tobacco abuse counseling; Z59.0 Homelessness; Z88.8 Allergy status to other drugs, medicaments and biological substances
CPT/HCPCS: 36415; 76705; 76830; 76856; 80053; 80061; 80178; 80183; 80185; 80305; 80320; 80337; 81001; 81025; 82565; 82670; 82679; 82728; 82948; 83001; 83002; 83036; 83540; 83550; 84144; 84439; 84443; 84466; 84480; 85025; 85045; 86592; 87081; 87088; 93005; 99285; J1200; J2060; J3486; J3490; Q0163; Q0175

== ENCOUNTER 2020-01-30 13:42 | Emergency (ER) | payer MEDICAID ==
[~2020-01-30] VITALS: Ht 177.8 cm; Wt 117.7 kg
[~2020-01-30 13:42] MED LIST changes: +CHLO100T24 PO; +CHLO50TA24 PO; +DOCU-148 PO; +GLYC1TAB23 PO; +LEVO25TA2 PO; +LIT300C PO; -PALI117D IM
--- NOTE | 2020-01-30 15:59 | NUR ---
Per [facility] pt. is conserved, pt. constantly asking to leave, pt. moved to room 13 for closer observatin to prevent elopment Addendum: 01/30/20 at 1602 by [employer], pt. moved to bed 15 for closer observation
[2020-01-30 16:27] LABS: BASOPHILS % (AUTO) 0.5 % (0-1); EOSINOPHILS % (AUTO) 0.2 % (0-6); HEMOGLOBIN 11.2 g/dl (12.0-16.0); LYMPHOCYTES # (AUTO) 1.5 X10'3 (1.1-4.8); LYMPHOCYTES % (AUTO) 15.2 % (21-51); MEAN CORPUSCULAR HEMOGLOBIN 30.1 PG (27.0-31.0); MEAN CORPUSCULAR HGB CONC 32.9 g/dL (33.0-36.5); MEAN CORPUSCULAR VOLUME 91.5 FL (78-98); MEAN PLATELET VOLUME 7.5 FL (7.4-10.4); MONOCYTES # (AUTO) 0.7 X10'3 (0-0.9); MONOCYTES % (AUTO) 6.7 % (2-12); NEUTROPHILS # (AUTO) 7.7 X10'3 (1.8-7.7); NEUTROPHILS % (AUTO) 77.4 % (42-75); PLATELET COUNT 327 X10'3 (140-440); RED BLOOD COUNT 3.72 X10'6 (4.20-5.60); RED CELL DISTRIBUTION WIDTH 23.1 % (11.5-14.5); WHITE BLOOD COUNT 9.9 X10'3 (4.5-11.0)
[2020-01-30 16:37] LABS: ALANINE AMINOTRANSFERASE 19 U/L (12-78); ALBUMIN 3.6 G/DL (3.4-5.0); ALKALINE PHOSPHATASE 74 IU/L (46-116); ANION GAP 15 (8-16); ASPARTATE AMINO TRANSFERASE 35 U/L (10-37); BILIRUBIN,TOTAL 0.6 MG/DL (0.1-1.0); BLOOD UREA NITROGEN 7 MG/DL (7-18); BUN/CREATININE RATIO 6.5 (6.6-38.0); CALCIUM 7.8 MG/DL (8.5-10.1); CHLORIDE 104 MMOL/L (99-107); CREATININE 1.08 MG/DL (0.40-0.90); ETHANOL < 0.010 GM/DL (0.0-0.010); GLUCOSE 113 MG/DL (70-104); SODIUM 139 MMOL/L (135-145); TOTAL CARBON DIOXIDE 19.7 MMOL/L (24-32); TOTAL PROTEIN 7.2 G/DL (6.4-8.2); eGFR 59 ML/MIN
[2020-01-30 17:12] LABS: ANISOCYTOSIS 3+; PLATELET ESTIMATE NORMAL; POLYCHROMASIA FEW; TEAR DROP CELLS 1+
[2020-01-30 17:13] LABS: SCHISTOCYTES FEW; STOMATOCYTES FEW
[2020-01-30] MEDS: potassium Cl 20 mEq SR tablet PO SCH ×2 (17:47→20:00)
[2020-01-30 18:38] LABS: URINE HCG NEGATIVE (NEG)
[2020-01-30 18:52] LABS: CLARITY,URINE CLOUDY (Clear); COLOR,URINE YELLOW (Yellow); GLUCOSE, URINE NEGATIVE (Neg); KETONES,URINE 15 mg/dl (Neg); LEUKOCYTE ESTERASE ,URINE MODERATE (Neg); NITRITES, URINE POSITIVE (Neg); OCCULT BLOOD,URINE LARGE (Neg); PROTEIN,URINE NEGATIVE (Neg); UROBILINOGEN,URINE 0.2 E.U/dL (0.2-1.0)
[2020-01-30 18:57] LABS: URINE AMPHETAMINE SCREEN POSITIVE (Neg); URINE BARBITUATE SCREEN NEGATIVE (Neg); URINE BENZODIAZEPINES SCREEN NEGATIVE (Neg); URINE CANNABINOID SCREEN NEGATIVE (Neg); URINE COCAINE SCREEN NEGATIVE (Neg); URINE METHADONE SCREEN NEGATIVE (Neg); URINE OPIATE SCREEN NEGATIVE (Neg); URINE PHENCYCLIDINE SCREEN NEGATIVE (Neg)
[2020-01-30 19:03] LABS: UA COLLECTION TYPE CLN CATCH MIDSTREAM
[2020-01-30 19:14] LABS: BACTERIA,URINE 3+ /HPF (Neg); MUCUS STRANDS MODERATE /LPF (Neg); SQUAMOUS EPITHELIAL CELL,UR MODERATE /LPF (FEW); WBC,URINE 20-30 /HPF (0-4)
--- NOTE | 2020-01-30 19:30 | NUR ---
Pt. moved to OF from main ED with PERSONAL FITNESS TRAINER, tech and security on standby.
[2020-01-30] MEDS: nitrofuran/nitrofuran macrocrysal 100 MG capsule PO SCH ×2 (20:00→20:25)
--- NOTE | 2020-01-30 20:30 | NUR ---
Pt. sitting in bed, calmly mumbling to self. Pt. denies auditory and/or visual hallucinations, but seems to be responding to internal stimuli. Will monitor closely.
--- NOTE | 2020-01-30 21:30 | NUR ---
Pt. in bed resting quietly.
--- NOTE | 2020-01-30 22:22 | NUR ---
Pt. psychotic behaviors apparent. She has had an increase of response to internal stimuli within the last hour. Pt. is very hypervigilant, surveying her surroundings and getting near exit signs. Increased monitoring initiated. She was provided with food at this time for distraction and per her request.
[2020-01-30] MEDS: chlorproMAZINE 25mg tablet PO PRN (23:19)
--- NOTE | 2020-01-30 23:24 | NUR ---
Pt. given thorazine prn for increased paranoia and response to internal stimuli.
--- NOTE | 2020-01-30 23:51 | NUR ---
Pt utilized the restroom and was given a new pair of green scrubs at her request due to soilage. She was then returned to bed and is now resting comfortably in direct line of sight of the nursing station.
--- NOTE | 2020-01-31 00:54 | NUR ---
Pt. has periods where she is talking to her self/responding to internal stimuli. She does have paranoid ideation and expressed that she feels like she is "being cut in half." Pt. asked if the medication that was given to her would cause her to be "cut in half." Pt. focus was redirected to reality and she was asked if she believed that any medication could cause anyone to be "cut in half." Pt. giggled saying "no." Pt. resumed to resting in her bed quietly. Will monitor pt. for further needs to be medicated.
[2020-01-31] MEDS ORDERED: OLANZapine 5mg rapidly disint. tablet PO ONE (02:10)
--- NOTE | 2020-01-31 02:10 | NUR ---
Pt. at a heightened state, responding to internal stimuli and expressing paranoid ideations. She is presenting very fearfull, stating that she's going to be "arrested" and needs to get out of this place. made aware. N.O received for zyprexa 10mg SL.
--- NOTE | 2020-01-31 02:51 | NUR ---
Pt. has been getting in and out of bed. She would also extractor machine operator front of her bed, appearing to be surveying her surroundings. Close monitoring in effect to prevent elopement. Pt. is easily redirectable at this time. Will consider another PRN dose of thorazine to help pt. with internal stimuli.
[2020-01-31] MEDS: chlorproMAZINE 25mg tablet PO PRN (03:14)
--- NOTE | 2020-01-31 03:37 | NUR ---
Pt. given thorazine PRN following zyprexa. She appears to be calming down now. Pt. is currenly in bed, resting quietly.
--- NOTE | 2020-01-31 04:40 | NUR ---
Pt. asleep. Appears comfortable. Even chest rise apparent.
--- NOTE | 2020-01-31 05:04 | NUR ---
Called [facility] re pt. Per [facility] and [facility] staff, pt. will be transferred to [facility] today. [facility] does not need to re-evaluate pt. d/t conserved status.
--- NOTE | 2020-01-31 05:53 | NUR ---
VS omitted at this time due to pt's finally achieved restfulness. Chest rise even. Pt. appears to be very comfortable.
[2020-01-31] MEDS ORDERED: levoTHYROXINE 25mcg tablet PO SCH (07:30)
[2020-01-31] MEDS: potassium Cl 20 mEq SR tablet PO SCH ×2 (07:31→19:05)
[2020-01-31] MEDS: chlorproMAZINE 25mg tablet PO SCH ×2 (07:32→19:04)
[2020-01-31] MEDS: docusate sod 100mg capsule PO SCH ×2 (07:32→19:05)
[2020-01-31] MEDS: nitrofuran/nitrofuran macrocrysal 100 MG capsule PO SCH ×2 (07:32→19:04)
[2020-01-31] MEDS: lithium carbonate 300mg SR tablet (LithoBID) PO SCH ×2 (07:33→19:05)
[2020-01-31] MEDS: glycopyrrolate 1mg tablet PO SCH ×2 (07:34→19:04)
--- NOTE | 2020-01-31 07:58 | NUR ---
Pt awoke for her am meds and then went back to sleep. pt denies any complaints.
--- NOTE | 2020-01-31 08:43 | NUR ---
pt is up getting some water. no s/s of distress noted.
[2020-01-31] MEDS ORDERED: LORazepam 2 mg/ml vial IM ONE (10:45)
[2020-01-31] MEDS ORDERED: haloperidol lactate 5mg/ml inj IM ONE (10:45)
[2020-01-31] MEDS ORDERED: OLANZapine **IM** 10 mg inj. IM ONE (10:55)
--- NOTE | 2020-01-31 11:30 | NUR ---
Pt became agitated, attempted to leave unit. security called to escort pt back to bed. pt then up at nurses station yelling and agitated, believes that there is a "murderer in my bed!" Pt unable to redirect. consult with dr guillaume, order for zyprexa 10 mg IM, ativan 2 mg IM.
--- NOTE | 2020-01-31 13:25 | NUR ---
Pt is sleeping, no s/s of distress noted.
--- NOTE | 2020-01-31 18:24 | NUR ---
Patient walks to nursing station exhibiting agitation. Patient demands dinner, she then attempts to get hand sanatizer which she has a history of drinking. The patient exhibits anger that this securities underwriter restricts her from getting hand sanatizer. Patient is redirected to bed. Patient is labile and refuses to speak to this securities underwriter other than making demands.
--- NOTE | 2020-01-31 18:49 | NUR ---
Patient ate her dinner in full. Patient asks for an additional meal tray. The patient is advised one tray is allowed. Patient will be given additional snack if available prior to bedtime.
--- NOTE | 2020-01-31 19:56 | NUR ---
Patient is now cooperative, she is resting on her left side in bed. In view from nursing station.
--- NOTE | 2020-01-31 20:35 | NUR ---
Pt up out of bed to bathroom independently steady gait . Pt back to bed lying on her right side resting peacefully . Resp even , unlabored and patient is in the direct line of sight of nursing staff .
[2020-01-31 21:07] VITALS: BP 134/88
[2020-01-31] MEDS ORDERED: GLYC1TAB23 PO (21:52)
[2020-01-31] MEDS ORDERED: LEVO25TA2 PO (21:52)
[2020-01-31] MEDS ORDERED: ESTR1TAB23 PO (21:52)
[2020-01-31] MEDS ORDERED: LORA-269 PO (21:52)
[2020-01-31] MEDS ORDERED: LITH300C PO (21:52)
[2020-01-31] MEDS ORDERED: NICO-668 MM (21:52)
[2020-01-31] MEDS ORDERED: CLOM50CA10 PO (21:52)
[2020-01-31] MEDS ORDERED: NICO-687 TOP (21:52)
[2020-01-31] MEDS ORDERED: CLON0.252 PO (21:52)
[2020-01-31] MEDS ORDERED: FERR142T7 PO (21:52)
[2020-01-31] MEDS ORDERED: OLAN10TA5 PO (21:52)
[2020-01-31] MEDS ORDERED: PALI234D IM (21:52)
[2020-01-31] MEDS ORDERED: ASCO500C17 PO (21:52)
[2020-01-31] MEDS ORDERED: TRAZ-256 PO (21:52)
[2020-01-31] MEDS ORDERED: PERP16TA5 PO (21:52)
== END 2020-01-31 21:10 ==
LOC: ER 13:43
DX: F31.9 Bipolar disorder, unspecified (principal); F41.9 Anxiety disorder, unspecified; F20.9 Schizophrenia, unspecified; F12.90 Cannabis use, unspecified, uncomplicated; F15.90 Other stimulant use, unspecified, uncomplicated; F11.90 Opioid use, unspecified, uncomplicated; Z56.0 Unemployment, unspecified; Z59.0 Homelessness; Z88.8 Allergy status to other drugs, medicaments and biological substances; Z79.899 Other long term (current) drug therapy
CPT/HCPCS: 36415; 80053; 80305; 80320; 81001; 81025; 85025; 93005; 96372; 99284; J2060; J3490; Q0161

== ENCOUNTER 2022-03-06 22:07 | Emergency (ER) | payer MEDICAID ==
[~2022-03-06] VITALS: Ht 177.8 cm; Wt 68.2 kg
[~2022-03-06 22:07] MED LIST changes: -CHLO100T24 PO; -CHLO50TA24 PO; +CLON0.252 PO; +EST1T PO; +FERR142T13 PO; -IBUP-1985 PO; -LEVO25TA2 PO; +LEVO25TA7 PO; +NALT50TA PO; +NICO-687 TOP; +PERP16TA5 PO; +PERP2TAB5 PO; +TRAZ-256 PO; +VITC500T PO
[2022-03-06 22:18] VITALS: BP 101/63
== END 2022-03-06 22:40 ==
LOC: ER 22:08
DX: Z02.89 Encounter for other administrative examinations (principal)
CPT/HCPCS: 99283

== ENCOUNTER 2022-03-20 19:21 | Emergency (ER) | payer MEDICAID ==
[~2022-03-20] VITALS: Ht 177.8 cm; Wt 59.1 kg
[2022-03-20] MEDS ORDERED: diphenhydrAMINE 50 mg/ml inj IM ONE (19:30)
[2022-03-20] MEDS ORDERED: OLANZapine **IM** 10 mg inj. IM ONE (19:30)
[2022-03-20] MEDS ORDERED: LORazepam 2 mg/ml vial IM ONE (19:30)
--- NOTE | 2022-03-20 20:05 | NUR ---
Officers left bedisde. Patient sleeping. No signs of distress. Equal, unlabored respirations. Sitter present outside the room.
--- NOTE | 2022-03-20 21:07 | NUR ---
Patient restless but intermittently sleeping. No signs of distress. Equal bilat, unlabored, and regular respirations.
[2022-03-20 21:28] LABS: HEMOGLOBIN 8.7 g/dl (12.0-16.0); MEAN PLATELET VOLUME 7.3 FL (7.4-10.4)
[2022-03-20 21:30] LABS: BASOPHILS % (AUTO) 0.7 % (0-1); EOSINOPHILS # (AUTO) 0.1 X10'3 (0-0.9); EOSINOPHILS % (AUTO) 2.9 % (0-6); HEMATOCRIT 26.8 % (35.0-45.0); LYMPHOCYTES # (AUTO) 2.3 X10'3 (1.1-4.8); LYMPHOCYTES % (AUTO) 47.5 % (21-51); MEAN CORPUSCULAR HEMOGLOBIN 27.3 PG (27.0-31.0); MEAN CORPUSCULAR HGB CONC 32.6 g/dL (33.0-36.5); MEAN CORPUSCULAR VOLUME 83.8 FL (78-98); MONOCYTES # (AUTO) 0.6 X10'3 (0-0.9); MONOCYTES % (AUTO) 12.7 % (2-12); NEUTROPHILS # (AUTO) 1.7 X10'3 (1.8-7.7); NEUTROPHILS % (AUTO) 36.2 % (42-75); PLATELET COUNT 335 X10'3 (140-440); RED CELL DISTRIBUTION WIDTH 16.8 % (11.5-14.5); WHITE BLOOD COUNT 4.8 X10'3 (4.5-11.0)
[2022-03-20 21:42] LABS: ALANINE AMINOTRANSFERASE 24 U/L (12-78); ALBUMIN 2.8 G/DL (3.4-5.0); ALBUMIN/GLOBULIN RATIO 0.7 (1.1-1.5); ALKALINE PHOSPHATASE 124 IU/L (46-116); ANION GAP 10 (8-16); ASPARTATE AMINO TRANSFERASE 39 U/L (10-37); BILIRUBIN,TOTAL 0.2 MG/DL (0.1-1.0); BLOOD UREA NITROGEN 13 MG/DL (7-18); BUN/CREATININE RATIO 15.5 (6.6-38.0); CALCIUM 8.4 MG/DL (8.5-10.1); CHLORIDE 112 MMOL/L (99-107); CREATININE 0.84 MG/DL (0.40-0.90); GLUCOSE 89 MG/DL (70-104); POTASSIUM 3.4 MMOL/L (3.5-5.1); SODIUM 148 MMOL/L (135-145); TOTAL CARBON DIOXIDE 26.1 MMOL/L (24-32); TOTAL PROTEIN 6.7 G/DL (6.4-8.2); eGFR 78 ML/MIN
[2022-03-20 21:52] LABS: ETHANOL 0.052 GM/DL (0.0-0.010)
--- NOTE | 2022-03-20 22:05 | NUR ---
PATIENT REMAINS RESTLESS BUT INTERMITTENTLY SLEEPING. NO SIGNS OF DISTRESS. PROVIDED BLANKET.
--- NOTE | 2022-03-20 23:05 | NUR ---
Patient resting comfortably. No signs of distress. Provided anothe rblanket after throwing last one on the floor.
--- NOTE | 2022-03-21 00:05 | NUR ---
Patient asleep, no signs of distress. No needs at this time.
--- NOTE | 2022-03-21 01:03 | NUR ---
Patient exhibiting restless behavior again. No signs of distress. No needs at this time.
--- NOTE | 2022-03-21 02:00 | NUR ---
Patient asleep. No signs of distress. Respirations unlabored with equal chest rise and fall. No needs at this time.
[2022-03-21 02:34] LABS: URINE HCG NEGATIVE (NEG)
[2022-03-21 02:36] LABS: CLARITY,URINE SLIGHTLY CLOUDY (Clear); COLOR,URINE YELLOW (Yellow); GLUCOSE, URINE NEGATIVE (Neg); KETONES,URINE NEGATIVE (Neg); LEUKOCYTE ESTERASE ,URINE NEGATIVE (Neg); NITRITES, URINE NEGATIVE (Neg); OCCULT BLOOD,URINE NEGATIVE (Neg); PH,URINE 5.5 (4.8-8.0); PROTEIN,URINE NEGATIVE (Neg); UROBILINOGEN,URINE 0.2 E.U/dL (0.2-1.0)
[2022-03-21 02:39] LABS: UA COLLECTION TYPE CLN CATCH MIDSTREAM
[2022-03-21 02:44] LABS: BACTERIA,URINE FEW /HPF (Neg); RBC,URINE 0-2 /HPF (0-2); WBC,URINE 0-4 /HPF (0-4)
[2022-03-21 02:46] LABS: SQUAMOUS EPITHELIAL CELL,UR MANY /LPF (FEW)
[2022-03-21 02:49] LABS: URINE AMPHETAMINE SCREEN POSITIVE (Neg); URINE BARBITUATE SCREEN NEGATIVE (Neg); URINE BENZODIAZEPINES SCREEN NEGATIVE (Neg); URINE CANNABINOID SCREEN NEGATIVE (Neg); URINE COCAINE SCREEN NEGATIVE (Neg); URINE METHADONE SCREEN NEGATIVE (Neg); URINE OPIATE SCREEN NEGATIVE (Neg); URINE PHENCYCLIDINE SCREEN NEGATIVE (Neg)
[2022-03-21 02:52] LABS: CAL OXALATE CRYSTALS 1+ /HPF (NEGATIVE)
--- NOTE | 2022-03-21 03:00 | NUR ---
Patient still asleep. No signs of distress. Unlabored respirations with equal chest rise and fall. Given a new blanket.
--- NOTE | 2022-03-21 04:00 | NUR ---
Patient resting comfortably with mild restless behavior. No signs of distress. No needs at this time.
--- NOTE | 2022-03-21 05:00 | NUR ---
Patient asleep. No signs of distress. No needs at this time.
--- NOTE | 2022-03-21 10:31 | NUR ---
handoff report given to BENI Schwab
--- NOTE | 2022-03-21 11:30 | NUR ---
Patient refusing to answer questions or follow instructions. Patient either ignores whoever is speaking to or will get agitated and swear and refuse. Patient is able to respond but is choosing not to at this time. Patient will not allow RN head to toe assessment (patient at first ignored request but when assessment attempted patient started getting agitated and swearing), but ER reported that she does have sores in her genital area. Patient is in no acute distress and is resting in bed
--- NOTE | 2022-03-21 12:51 | NUR ---
Patient arrived to overflow from regular ED. Patient is primarily sleeping and will not answer questions from RN. Patient gets very agitated and will not cooperate with wearing hospital gown (patient threw off and threw onto side table refusing to put back on), will not answer questions pertaining to assessments or medications. Patient is able to respond because she will talk when she wants food or water, but refuses to cooperate with medical care at this time. Spoke to [facility] to see if they knew what facility the patient was last at so I can complete the med rec, but the only thing they could find was an old med rec from 2019
--- NOTE | 2022-03-21 13:30 | NUR ---
[facility] called for update on patient status. Stated they will report back on whether or not they'll accept the patient
--- NOTE | 2022-03-21 14:00 | NUR ---
pt uncooperative, sleeping in bed, shuts eyes when talking to her. Called [facility] [address], she has not filled meds since feb 2020, and got her covid shot in july 2020 [facility].
--- NOTE | 2022-03-21 14:27 | NUR ---
[facility] pharmacy was called to see if patient has still been filling prescriptions there, [facility] reported that meds haven't been filled there since 2019 and they do not have a current or accurate medication list. Patient still refusing to answer questions but is resting comfortably in bed at this time.
--- NOTE | 2022-03-21 15:32 | NUR ---
Patient sleeping, will occassionally wake up and respond to her name but will not answer any questions relating to assessments, medications, etc. Patient will not follow instructions or requests at this time.
--- NOTE | 2022-03-21 17:20 | NUR ---
Patient sleeping comfortably. Spoke to telemarketing representative from [facility] and patient accepted with a Dr Garcia. No bed available today, but patient will transfer tomorrow
[2022-03-21] MEDS ORDERED: LORazepam 1 MG tablet PO ONE (18:30)
[2022-03-21] MEDS ORDERED: OLANZapine 5mg rapidly disint. tablet PO ONE (18:30)
--- NOTE | 2022-03-21 19:43 | NUR ---
The patient out of bed and approached the nursing station and requested food items. She was very malodorous, dirty and poorly organized. Discussed patient with Dr. Hall and orders received for medications which she took with no problem. She will be transferred to [facility] tomorrow.
--- NOTE | 2022-03-21 22:23 | NUR ---
The patient appears to be sleeping
--- NOTE | 2022-03-22 00:23 | NUR ---
The patient appears to be sleeping
--- NOTE | 2022-03-22 03:03 | NUR ---
The patient appears to be sleeping
--- NOTE | 2022-03-22 04:32 | NUR ---
The patient appears to be sleeping
--- NOTE | 2022-03-22 05:34 | NUR ---
The patient appears to be sleeping
--- NOTE | 2022-03-22 06:32 | NUR ---
Patient sleeping in bed. Respirations are even and unlabored.
--- NOTE | 2022-03-22 07:41 | NUR ---
[facility] called and will be picking up patient at 14:00.
--- NOTE | 2022-03-22 09:11 | NUR ---
Patient up eating snacks. Requested tea, which was given. Now sleeping.
--- NOTE | 2022-03-22 11:21 | NUR ---
Patient is up and went to the restroom, and requested something to eat. Patient has been sleeping and is disheveled in appearance.
[2022-03-22] MEDS ORDERED: LORazepam 1 MG tablet PO ONE (12:00)
--- NOTE | 2022-03-22 13:50 | NUR ---
[facility] here for transport along with two police officers and our security. Patient refusing to be discharged to [facility]. Wheelchair provided for patient. Patient escorted out of hospital by all staff involved.
[2022-03-22 13:54] VITALS: BP 127/89
== END 2022-03-22 13:59 ==
LOC: ER 19:22
DX: F20.9 Schizophrenia, unspecified (principal); Z20.822 Contact with and (suspected) exposure to COVID-19; F15.10 Other stimulant abuse, uncomplicated; F79 Unspecified intellectual disabilities; F31.9 Bipolar disorder, unspecified; Z59.00 Homelessness unspecified; Z56.0 Unemployment, unspecified; Z88.8 Allergy status to other drugs, medicaments and biological substances; Z79.899 Other long term (current) drug therapy
CPT/HCPCS: 36415; 80053; 80305; 80320; 81001; 81025; 84443; 85025; 87811; 96372; 99285; J1200; J2060; J3490; A4353